=== PATIENT | female | born 1955 | race Caucasian/White ===

== ENCOUNTER → 2017-01-30 | Outpatient (CLI) | payer MEDICARE, OTHER ==
[~2017-01-30] MED LIST: CYANOCOBALAMIN 1,000 MCG/ML 1 ML VIAL IM NR; SODIUM CHLORIDE 0.9% 250 ML in EMPTY BAG 1 BAG IV PRN; SODIUM CHLORIDE 0.9% 500 ML in EMPTY BAG 1 BAG IV PRN
[2017-01-30 10:27] VITALS: TEMP 97.7
[2017-01-30 11:58] VITALS: BP 151/67; PULSE 78; RESP 20
[2017-01-30 12:47] LABS: ALT 52 U/L (9-52); Anion Gap 10 mmol/L; Blood Urea Nitrogen 17 mg/dL (7-17); Calcium 8.9 mg/dL (8.4-10.2); Carbon Dioxide 26 mmol/L (22-30); Chloride 103 mmol/L (98-107); Cholesterol 187 mg/dL (<200); Glucose 124 mg/dL (74-99); HDL Cholesterol 58 mg/dL (40-60); Non-African American GFR(MDRD) >60 (>60 ml/min/1.73 sqM); Sodium 139 mmol/L (137-145); Triglycerides 120 mg/dL (<150)
[2017-01-30 13:30] LABS: Potassium 4.8 mmol/L (3.5-5.1)
[2017-01-30 14:00] LABS: Hemoglobin A1C 7.2 % (4.2-6.1)
== END ==
LOC: PROCWHC3 09:02
DX: Z51.11 Encounter for antineoplastic chemotherapy (principal); K50.00 Crohn's disease of small intestine without complications; E11.22 Type 2 diabetes mellitus with diabetic chronic kidney disease; E78.5 Hyperlipidemia, unspecified; E03.9 Hypothyroidism, unspecified; N18.2 Chronic kidney disease, stage 2 (mild); Z51.81 Encounter for therapeutic drug level monitoring
CPT/HCPCS: 80061; 80048; 83036; 84443; 84460; 96413; 96415; 96372; J3420; J1745

== ENCOUNTER → 2017-03-13 | Outpatient (CLI) | payer MEDICARE, OTHER ==
[2017-03-13 09:16] VITALS: RESP 16; TEMP 98.1
[2017-03-13 11:14] VITALS: BP 189/80; PULSE 78
== END ==
LOC: PROCWHC3 09:03
DX: Z51.11 Encounter for antineoplastic chemotherapy (principal); K50.00 Crohn's disease of small intestine without complications
CPT/HCPCS: 96361; 96413; 96415; 96372; J3420; J1745

== ENCOUNTER → 2017-04-24 | Outpatient (CLI) | payer MEDICARE, OTHER ==
[~2017-04-24] MED LIST changes: -CYANOCOBALAMIN 1,000 MCG/ML 1 ML VIAL IM NR; +CYANOCOBALAMIN 1,000 MCG/ML 1 ML VIAL IM ONE; -SODIUM CHLORIDE 0.9% 250 ML in EMPTY BAG 1 BAG IV PRN
[2017-04-24 09:34] VITALS: RESP 16; TEMP 97.8
[2017-04-24 10:57] VITALS: BP 131/80; PULSE 69
== END | disposition home or self-care (01) ==
LOC: PROCWHC3 09:03
DX: K50.00 Crohn's disease of small intestine without complications (principal); E53.8 Deficiency of other specified B group vitamins
CPT/HCPCS: 96361; 96372; 96413; 96415; J3420; J1745

== ENCOUNTER → 2017-05-23 | Outpatient (CLI) | payer MEDICARE, OTHER ==
[2017-05-23 17:09] LABS: EKG EKG PERFORMED
[2017-05-23 17:33] LABS: Anion Gap 10 mmol/L; Blood Urea Nitrogen 13 mg/dL (7-17); Calcium 9.1 mg/dL (8.4-10.2); Carbon Dioxide 24 mmol/L (22-30); Chloride 104 mmol/L (98-107); Glucose 201 mg/dL (74-99); Non-African American GFR(MDRD) >60 (>60 ml/min/1.73 sqM); Potassium 4.1 mmol/L (3.5-5.1); Sodium 138 mmol/L (137-145)
== END | disposition home or self-care (01) ==
LOC: LABWHC1 16:56
PROVIDERS: ATTEND Anesthesiology
DX: Z01.818 Encounter for other preprocedural examination (principal); Z01.810 Encounter for preprocedural cardiovascular examination
CPT/HCPCS: 36415; 80048; 93005

== ENCOUNTER → 2017-06-11 | Outpatient (CLI) | payer MEDICARE, OTHER ==
[~2017-06-11] MED LIST changes: +INFLIXIMAB DYYB IV ONE; +SODIUM CHLORIDE 0.9% IV ONE
[2017-06-11 10:20] VITALS: TEMP 99.3
[2017-06-11 11:02] VITALS: RESP 16
[2017-06-11 12:22] VITALS: BP 162/77; PULSE 77
== END | disposition home or self-care (01) ==
LOC: PROCWHC3 10:04
DX: K50.00 Crohn's disease of small intestine without complications (principal)
CPT/HCPCS: 96413; 96415; 96372; J3420; Q5102

== ENCOUNTER → 2018-01-09 | Outpatient (CLI) | payer MEDICARE, OTHER ==
[~2018-01-09] MED LIST changes: -CYANOCOBALAMIN 1,000 MCG/ML 1 ML VIAL IM ONE; +CYANOCOBALAMIN 1,000 MCG/ML 1 ML VIAL SQ NR; +INFLIXIMAB DYYB IV NR; -INFLIXIMAB DYYB IV ONE; +SODIUM CHLORIDE 0.9% IV NR; -SODIUM CHLORIDE 0.9% IV ONE
[2018-01-09 10:26] VITALS: RESP 16; TEMP 97.7
[2018-01-09 12:19] VITALS: PULSE 75
[2018-01-09 12:43] VITALS: BP 144/68
== END | disposition home or self-care (01) ==
LOC: PROCWHC3 09:48
PROVIDERS: ATTEND Internal Medicine Rheumatology
DX: M06.09 Rheumatoid arthritis without rheumatoid factor, multiple sites (principal); R53.83 Other fatigue
CPT/HCPCS: 96372; 96413; 96415; J3420; Q5103

== ENCOUNTER → 2018-02-20 | Outpatient (CLI) | payer MEDICARE, OTHER ==
[~2018-02-20] MED LIST changes: +CYANOCOBALAMIN 1,000 MCG/ML 1 ML VIAL IM NR; -CYANOCOBALAMIN 1,000 MCG/ML 1 ML VIAL SQ NR
[2018-02-20 10:06] VITALS: RESP 16
[2018-02-20 10:08] VITALS: TEMP 97.9
[2018-02-20 10:49] LABS: Basophils % (A) 1 %; Eosinophils # (A) 0.2 k/uL (0-0.7); Eosinophils % (A) 3 %; HCT 36.4 % (34.0-46.0); HGB 11.9 gm/dL (11.4-16.0); Lymphocytes % (A) 16 %; MCH 31.4 pg (25.0-35.0); MCHC 32.6 g/dL (31.0-37.0); MCV 96.2 fL (80.0-100.0); Mean Platelet Volume 7.4; Monocytes # (A) 0.5 k/uL (0-1.0); Monocytes % (A) 8 %; Neutrophils # (A) 4.2 k/uL (1.3-7.7); Neutrophils % (A) 70 %; Platelet Count 246 k/uL (150-450); RBC 3.78 m/uL (3.80-5.40); WBC 6.1 k/uL (3.8-10.6)
[2018-02-20 11:08] LABS: ALT 31 U/L (9-52); AST 29 U/L (14-36); Albumin 3.9 g/dL (3.5-5.0); Alkaline Phosphatase 53 U/L (38-126); Anion Gap 12 mmol/L; Blood Urea Nitrogen 16 mg/dL (7-17); Calcium 9.4 mg/dL (8.4-10.2); Carbon Dioxide 26 mmol/L (22-30); Chloride 101 mmol/L (98-107); Cholesterol 184 mg/dL (<200); Glucose 157 mg/dL (74-99); HDL Cholesterol 57 mg/dL (40-60); LDL Cholesterol,Calculated 94 mg/dL (0-99); Potassium 4.5 mmol/L (3.5-5.1); Sodium 139 mmol/L (137-145); Total Bilirubin 0.9 mg/dL (0.2-1.3); Total Protein 7.1 g/dL (6.3-8.2); Triglycerides 164 mg/dL (<150)
[2018-02-20 11:21] VITALS: BP 119/74; PULSE 63
== END | disposition home or self-care (01) ==
LOC: PROCWHC3 09:42
PROVIDERS: ATTEND Urology
DX: M06.09 Rheumatoid arthritis without rheumatoid factor, multiple sites (principal); E11.21 Type 2 diabetes mellitus with diabetic nephropathy; E78.2 Mixed hyperlipidemia; F33.42 Major depressive disorder, recurrent, in full remission
CPT/HCPCS: 80061; 80053; 84443; 85025; 96413; 96415; 96372; 36415; J3420; Q5103

== ENCOUNTER → 2018-04-03 | Outpatient (CLI) | payer MEDICARE, OTHER ==
[~2018-04-03] MED LIST changes: -CYANOCOBALAMIN 1,000 MCG/ML 1 ML VIAL IM NR; +CYANOCOBALAMIN 1,000 MCG/ML 1 ML VIAL IM ONE; -INFLIXIMAB DYYB IV NR; +INFLIXIMAB-DYYB 800 MG in SODIUM CHLORIDE 0.9% 250 ML IV NR; -SODIUM CHLORIDE 0.9% IV NR
[2018-04-03 11:56] VITALS: RESP 16; TEMP 97.7
[2018-04-03 12:27] LABS: Cholesterol 136 mg/dL (<200); HDL Cholesterol 64 mg/dL (40-60); LDL Cholesterol,Calculated 47 mg/dL (0-99); Triglycerides 123 mg/dL (<150)
[2018-04-03 12:37] LABS: ALT 33 U/L (9-52); AST 41 U/L (14-36)
[2018-04-03 13:08] VITALS: BP 140/67; PULSE 54
== END ==
LOC: PROCWHC3 10:12
PROVIDERS: ATTEND Urology
DX: K50.00 Crohn's disease of small intestine without complications (principal); E78.2 Mixed hyperlipidemia
CPT/HCPCS: 80061; 84450; 84460; 96413; 96415; 96372; 36415; J3420; Q5103

== ENCOUNTER → 2018-05-15 | Outpatient (CLI) | payer MEDICARE, OTHER ==
[~2018-05-15] MED LIST changes: -CYANOCOBALAMIN 1,000 MCG/ML 1 ML VIAL IM ONE; +CYANOCOBALAMIN 1,000 MCG/ML 1 ML VIAL SQ ONE
[2018-05-15 11:04] VITALS: RESP 16; TEMP 98.2
[2018-05-15 12:31] VITALS: BP 139/59; PULSE 62
== END | disposition home or self-care (01) ==
LOC: PROCWHC3 09:17
PROVIDERS: ATTEND Internal Medicine Rheumatology
DX: K50.00 Crohn's disease of small intestine without complications (principal)
CPT/HCPCS: 96413; 96415; 96372; J3420; J1745

== ENCOUNTER → 2018-06-26 | Outpatient (CLI) | payer MEDICARE, OTHER ==
[~2018-06-26] MED LIST changes: +CYANOCOBALAMIN 1,000 MCG/ML 1 ML VIAL SQ NR; -CYANOCOBALAMIN 1,000 MCG/ML 1 ML VIAL SQ ONE; -INFLIXIMAB-DYYB 800 MG in SODIUM CHLORIDE 0.9% 250 ML IV NR; +SODIUM CHLORIDE 0.9% 500 ML 500 ML in EMPTY BAG 1 BAG IV PRN; -SODIUM CHLORIDE 0.9% 500 ML in EMPTY BAG 1 BAG IV PRN
[2018-06-26 10:13] VITALS: RESP 16; TEMP 98.1
[2018-06-26 11:43] VITALS: BP 126/59; PULSE 65
== END | disposition home or self-care (01) ==
LOC: PROCWHC3 09:29
PROVIDERS: ATTEND Urology
DX: K50.00 Crohn's disease of small intestine without complications (principal)
CPT/HCPCS: 96413; 96415; 96372; J3420; J1745

== ENCOUNTER → 2019-01-14 | Outpatient (CLI) | payer MEDICARE ==
[~2019-01-14] MED LIST changes: -CYANOCOBALAMIN 1,000 MCG/ML 1 ML VIAL SQ NR; +CYANOCOBALAMIN 1,000 MCG/ML 1 ML VIAL SQ ONE; +INFLIXIMAB IV NR; +SODIUM CHLORIDE 0.9% IV NR
[2019-01-14 10:18] VITALS: TEMP 97.6
[2019-01-14 11:13] VITALS: RESP 16
[2019-01-14 12:05] VITALS: BP 129/74; PULSE 61
== END ==
LOC: PROCWHC3 09:49
PROVIDERS: ATTEND Internal Medicine Rheumatology
DX: K50.00 Crohn's disease of small intestine without complications (principal); R53.82 Chronic fatigue, unspecified
CPT/HCPCS: 96413; 96415; 96372; J3420; J1745

== ENCOUNTER 2019-01-21 06:37 | Day surgery (SDC) | payer MEDICARE ==
[2019-01-16 13:22] VITALS: BMI 38.9
[~2019-01-21 06:37] MED LIST changes: -CYANOCOBALAMIN 1,000 MCG/ML 1 ML VIAL SQ ONE; -INFLIXIMAB IV NR; +LACTATED RINGERS 1,000 ML IV SCH; +LIDOCAINE 1% 20 ML VIAL (10MG/ML) FOR IV START INTRADERMA PRN; -SODIUM CHLORIDE 0.9% 500 ML 500 ML in EMPTY BAG 1 BAG IV PRN; -SODIUM CHLORIDE 0.9% IV NR
[2019-01-21 07:27] VITALS: TEMP 98.6
[2019-01-21 07:28] LABS: Glucose,Whole Blood 169 mg/dL (75-99)
[2019-01-21] MEDS ORDERED: MIDAZOLAM 2 MG/2 ML VIAL ONE (07:47)
[2019-01-21] MEDS ORDERED: PROPOFOL 10 MG/ML 20 ML VIAL IV ONE (07:47)
[2019-01-21] MEDS ORDERED: fentaNYL (PF) 50 MCG/ML 2 ML AMP ONE (07:47)
--- NOTE | 2019-01-21 07:50 | P.GSHP ---
History of Present Illness H&P Date: 01/21/19 Chief Complaint: Diarrhea This a 63-year-old female who presents today for colonoscopy. She's had issues with diarrhea. Past Medical History Past Medical History: Asthma, Cancer, Diabetes Mellitus, GERD/Reflux, Memory Impairment, Rheumatoid Arthritis (RA), Sleep Apnea/CPAP/BIPAP, Thyroid Disorder Additional Past Medical History / Comment(s): PAST HX OF ASTHMA (NO PROBLEMS NOW), CROHNS, DIARRHEA & BLOOD WITH STOOLS., HX OF UTERINE CANCER. past hx of thyroid problems History of Any Multi-Drug Resistant Organisms: None Reported Past Surgical History: Bladder Surgery, Bowel Resection, Hysterectomy, Orthopedic Surgery Additional Past Surgical History / Comment(s): BLADDER SUSPENSION X2, HAND SURGERY, jamel FOOT SURGERY (02/01/16) Past Anesthesia/Blood Transfusion Reactions: Previous Problems w/ Anesthesia Additional Past Anesthesia/Blood Transfusion Reaction / Comment(s): X1 HAD DIFFICULTY WAKING UP. Smoking Status: Never smoker - Past Family History Mother Family Medical History: Cancer Additional Family Medical History / Comment(s): UTERINE CANCER Medications and Allergies Home Medications Medication Instructions Recorded Confirmed Type Glimepiride [Amaryl] 4 tab PO BID 02/25/14 01/21/19 History metFORMIN HCL 1,000 tab PO BID 02/25/14 01/21/19 History Methotrexate Sodium [Methotrexate] 12.5 mg PO FR 01/18/15 01/21/19 History Cyanocobalamin [Vitamin B-12] 1,000 mcg IM Q42D 03/09/16 01/21/19 History inFLIXimab [Remicade] 900 mg IVPB Q42D 04/24/17 01/16/19 History Citalopram Hydrobromide 40 mg PO DAILY 06/26/18 01/21/19 History [Citalopram HBr] Donepezil [Aricept] 10 mg PO HS 06/26/18 01/21/19 History Memantine [Namenda] 20 mg PO DAILY 06/26/18 01/21/19 History buPROPion HCL [Wellbutrin XL] 150 mg PO DAILY 06/26/18 01/21/19 History Allergies Allergy/AdvReac Type Severity Reaction Status Date / Time No Known Allergies Allergy Verified 01/21/19 07:12 Surgical - Exam Vital Signs Temp Pulse Resp BP Pulse Ox 98.6 F 58 L 17 163/73 97 01/21/19 07:19 01/21/19 07:19 01/21/19 07:19 01/21/19 07:19 01/21/19 07:19 - General well developed, well nourished, no distress - Eyes PERRL - ENT normal pinna - Neck no masses - Respiratory normal expansion - Cardiovascular Rhythm: regular - Abdomen Abdomen: soft, non tender Results - Labs Abnormal Lab Results - Last 24 Hours (Table) 01/21/19 Range/Units 07:25 POC Glucose (mg/dL) 169 H (75-99) mg/dL Assessment and Plan Assessment: Diarrhea. We'll perform colonoscopy
--- NOTE | 2019-01-21 08:00 | P.OP ---
Date of Procedure: 01/21/19 Preoperative Diagnosis: Diarrhea Postoperative Diagnosis: Internal and external hemorrhoids Rectal biopsy pathology pending Procedure(s) Performed: Colonoscopy Anesthesia: MAC Surgeon: Colin Baugh Pathology: other (Rectal biopsy) Condition: stable Disposition: PACU Description of Procedure: Patient's placed on the endoscopy table in the lateral position. She received IV sedation. Digital rectal exam was performed which revealed internal and Hemorrhoids. The flexible colonoscope was then placed patient anus and passed throughout the entire colon. The right colon was visualized. The patient appeared to have a previous ileocolonic anastomosis. This was normal. The flexible colonoscope was then brought back and the remainder the ascending colon, transient colon and descending colon appeared normal. Scope was brought through the sigmoid colon was normal. The scope summer back the rectum and a random biopsy was performed with a cold forcep. Scope was withdrawn through the anus and there was some minimal bleeding from the internal hemorrhoids. Her internal and external hemorrhoids were noted again. Scope was withdrawn for patient.
[2019-01-21 08:05] VITALS: RESP 16
[2019-01-21 08:38] VITALS: BP 135/76; PULSE 68
== END 2019-01-21 08:46 | disposition home or self-care (01) ==
LOC: ORWHC2ENDO 06:37
PROVIDERS: ATTEND Surgery
DX: R19.7 Diarrhea, unspecified (principal); K64.8 Other hemorrhoids; K64.4 Residual hemorrhoidal skin tags; E07.9 Disorder of thyroid, unspecified; E11.9 Type 2 diabetes mellitus without complications; J45.909 Unspecified asthma, uncomplicated; K21.9 Gastro-esophageal reflux disease without esophagitis; M06.9 Rheumatoid arthritis, unspecified; Z79.84 Long term (current) use of oral hypoglycemic drugs; Z85.42 Personal history of malignant neoplasm of other parts of uterus; Z79.899 Other long term (current) drug therapy
CPT/HCPCS: 88305; 45380; J2250; J3010; J2704

== ENCOUNTER 2019-02-10 07:52 | Day surgery (SDC) | payer MEDICARE ==
[2019-02-06 08:36] VITALS: BMI 36.0
[~2019-02-10 07:52] MED LIST changes: +DEXAMETHASONE SOD PHOSPHATE 10 MG/ML 1 ML VIAL IV ONE; +HEPARIN SODIUM,PORCINE 5,000 UNIT/ML 1 ML VIAL SQ ONE; +HYDROmorphone 0.5 MG/0.5 ML SYRINGE IVP PRN; -LIDOCAINE 1% 20 ML VIAL (10MG/ML) FOR IV START INTRADERMA PRN; +ONDANSETRON 4 MG/2 ML VIAL IVP ONE; +Pre Op ABX Message 1 EACH MISC MISCELLANE ONE; +SCOPOLAMINE 1.5MG/72HR PATCH TRANSDERM ONE
[2019-02-10] MEDS ORDERED: NA PHOS,M-B/NA PHOS,DI-BA 133 ML ENEMA RECTAL ONE (08:00)
[2019-02-10 08:52] VITALS: RESP 16; TEMP 98.2
[2019-02-10] MEDS ORDERED: LIDOCAINE 1% 20 ML VIAL (10MG/ML) FOR IV START INTRADERMA ONE (09:00)
--- NOTE | 2019-02-10 09:01 | P.GSHP ---
History of Present Illness H&P Date: 02/10/19 Chief Complaint: Internal and external hemorrhoids This a 63-year-old female who presents today for hemorrhoidectomy. Patient's had issues with internal and external hemorrhoids. Patient's clearance of rectal bleeding pain and itching. Past Medical History Past Medical History: Asthma, Cancer, Diabetes Mellitus, GERD/Reflux, Memory Impairment, Rheumatoid Arthritis (RA), Skin Disorder, Sleep Apnea/CPAP/BIPAP, Thyroid Disorder Additional Past Medical History / Comment(s): C-PAP MACHINE, PAST HX OF ASTHMA (NO PROBLEMS NOW), CROHNS, DIARRHEA & BLOOD WITH STOOLS., HX OF UTERINE CANCER. MULTIPLE SCRATCHES/SORES D/T OCD. History of Any Multi-Drug Resistant Organisms: None Reported Past Surgical History: Bladder Surgery, Bowel Resection, Hysterectomy, Ort hopedic Surgery Additional Past Surgical History / Comment(s): BLADDER SUSPENSION X2, HAND SURGERY, LEFT FOOT SURGERY (02/01/16) Past Anesthesia/Blood Transfusion Reactions: No Reported Reaction Additional Past Anesthesia/Blood Transfusion Reaction / Comment(s): X1 HAD DIFFICULTY WAKING UP. Smoking Status: Never smoker - Past Family History Mother Family Medical History: Cancer Additional Family Medical History / Comment(s): UTERINE CANCER Medications and Allergies Home Medications Medication Instructions Recorded Confirmed Type Glimepiride [Amaryl] 4 tab PO BID 02/25/14 02/10/19 History metFORMIN HCL 1,000 tab PO BID 02/25/14 02/10/19 History Methotrexate Sodium [Methotrexate] 12.5 mg PO FR 01/18/15 02/10/19 History Cyanocobalamin [Vitamin B-12] 1,000 mcg IM Q42D 03/09/16 02/10/19 History inFLIXimab [Remicade] 900 mg IVPB Q42D 04/24/17 02/10/19 History Citalopram Hydrobromide 40 mg PO DAILY 06/26/18 02/10/19 History [Citalopram HBr] Donepezil [Aricept] 10 mg PO HS 06/26/18 02/10/19 History Memantine [Namenda] 20 mg PO DAILY 06/26/18 02/10/19 History buPROPion HCL [Wellbutrin XL] 150 mg PO DAILY 06/26/18 02/10/19 History Allergies Allergy/AdvReac Type Severity Reaction Status Date / Time No Known Allergies Allergy Verified 02/06/19 08:32 Surgical - Exam Vital Signs Temp Pulse Resp BP Pulse Ox 98.2 F 54 L 16 146/78 94 L 02/10/19 08:50 02/10/19 08:50 02/10/19 08:50 02/10/19 08:50 02/10/19 08:50 - General well developed, well nourished, no distress - Eyes PERRL - ENT normal pinna - Neck no masses - Respiratory normal expansion - Cardiovascular Rhythm: regular - Abdomen Abdomen: soft, non tender Assessment and Plan Assessment: Internal and external hemorrhoids. We'll perform hemorrhoidectomy.
[2019-02-10 09:12] LABS: Glucose,Whole Blood 165 mg/dL (75-99)
[2019-02-10] MEDS ORDERED: MIDAZOLAM 2 MG/2 ML VIAL ONE (09:18)
[2019-02-10] MEDS ORDERED: fentaNYL (PF) 50 MCG/ML 2 ML AMP ONE (09:18)
[2019-02-10] MEDS ORDERED: PROPOFOL 10 MG/ML 20 ML VIAL IV ONE (09:18)
[2019-02-10] MEDS ORDERED: BUPIVACAINE-EPI 0.5%-1:200,000 10 ML VIAL SQ ONE ×3 (09:38→09:43)
[2019-02-10] MEDS ORDERED: GELATIN SPONGE,ABSORB (LARGE) 1 EACH SPONGE TOPICAL ONE (09:53)
--- NOTE | 2019-02-10 10:23 | P.OP ---
Date of Procedure: 02/10/19 Preoperative Diagnosis: Internal and external hemorrhoids Postoperative Diagnosis: Internal and external hemorrhoids Procedure(s) Performed: Internal and external hemorrhoidectomy Anesthesia: local Surgeon: Colin Baugh Pathology: other (Hemorrhoids) Condition: stable Disposition: PACU Description of Procedure: Patient's placed on the operating table in the prone jackknife position. She received IV and local anesthetic. Her anus was anesthetized using 1% local Xylocaine. Patient had large internal/external hemorrhoids. The bivalved anal retractors placed and anus. The left lateral hemorrhoid column was dissected using the Harmonic scissors. The specimens of pathology. Next the right ante rior hemorrhoidal column was dissected and removed using the Harmonic scissors. Large cautery. Hemostasis. There is no bleeding seen. The anus was packed with Gelfoam. Patient top she will well and sent to recovery in stable condition.
[2019-02-10] MEDS ORDERED: HYDROcodone/APAP 5-325MG 1 EACH TAB PO ONE (10:30)
[2019-02-10 10:47] VITALS: BP 144/81; PULSE 78
== END 2019-02-10 11:19 | disposition home or self-care (01) ==
LOC: OR 07:52
PROVIDERS: ATTEND Surgery
DX: K64.4 Residual hemorrhoidal skin tags (principal); K64.8 Other hemorrhoids; E11.9 Type 2 diabetes mellitus without complications; K21.9 Gastro-esophageal reflux disease without esophagitis; R41.3 Other amnesia; M06.9 Rheumatoid arthritis, unspecified; G47.33 Obstructive sleep apnea (adult) (pediatric); Z99.89 Dependence on other enabling machines and devices; Z85.42 Personal history of malignant neoplasm of other parts of uterus; E07.9 Disorder of thyroid, unspecified; F42.9 Obsessive-compulsive disorder, unspecified; J45.909 Unspecified asthma, uncomplicated; Z90.49 Acquired absence of other specified parts of digestive tract; Z79.84 Long term (current) use of oral hypoglycemic drugs; Z79.899 Other long term (current) drug therapy
CPT/HCPCS: 88304; 46260; J2250; J1644; J1100; J2405; J3010; J2704

== ENCOUNTER → 2019-02-13 | Outpatient (CLI) | payer MEDICARE ==
--- NOTE | 2019-02-16 23:30 | MR ---
EXAMINATION TYPE: MR ankle RT wo con DATE OF EXAM: 02/13/2019 COMPARISON: Outside MRI 04/12/2018 HISTORY: 63-year-old female Pain / Swelling / Chronic pain / Osteoarthritis. Ankle surgery 2 years ag o. TECHNIQUE: Multiplanar, multisequence images of the right ankle were obtained without IV contrast. FINDINGS: Small to moderate tibiotalar and posterior subtalar joint effusions. Subtalar joint is aligned. Edema within the lateral body of the calcaneus underlying the angle of Gissane has improved in the in terval. Small amount of residual edema is present here. Very subtle muscular edema within the posterior compartment. Achilles tendon is intact. Small plantar calcaneal spur. Intact origin of the plantar fascia. There is thickening of the posterior tibial tendon with possible small partial split tear versus post surgical change just below the level of the medial malleolus. Overall appearance is significantly imp roved from prior exam. Pinning along the lateral aspect of the navicular and greater relating to prio r repair. Deltoid spring ligament complex appears intact. Lateral ligamentous complex appears grossly intact. Peroneal tendons appear intact. Syndesmosis is intact. Trace tenosynovial fluid scattered within the anterior extensor tendons. Small 1.1 cm ganglion cyst posterior aspect of the ankle adjacent to the PTFL. Additional 1.0 cm ganglion cyst along the dorsal aspect of the midfoot likely arising from the intert arsal articulation. Preserved signal within the sinus Tarsi. Tarsal tunnel is clear. No acute or healing fracture or additional area of marrow edema. IMPRESSION: 1. Significantly improved appearance to the posterior tibial tendon status post repair. Residual thic kening/tendinosis of the tendon remains. There is either a small partial split tear just below the me dial malleolus versus postsurgical change. No retracted tear. 2. Edema within the anterior lateral body of the calcaneus has also improved. Mild residual marrow si gnal change remains with some irregularity of the bone at the level of the angle of Gissane. Query ch ronic sequela of prior extra-articular lateral hindfoot impingement as a result of patient's prior po sterior tibial tendon tear. 3. Small 1.0 cm dorsal midfoot ganglion cyst.
== END | disposition home or self-care (01) ==
LOC: RADMRIMAIN 12:50
PROVIDERS: ATTEND Podiatrist
DX: M25.571 Pain in right ankle and joints of right foot (principal); G89.29 Other chronic pain; M19.071 Primary osteoarthritis, right ankle and foot; M67.471 Ganglion, right ankle and foot; Z98.1 Arthrodesis status

== ENCOUNTER → 2019-03-07 | Outpatient (CLI) | payer MEDICARE ==
[~2019-03-07] MED LIST changes: +CYANOCOBALAMIN 1,000 MCG/ML 1 ML VIAL SQ NR; -DEXAMETHASONE SOD PHOSPHATE 10 MG/ML 1 ML VIAL IV ONE; -HEPARIN SODIUM,PORCINE 5,000 UNIT/ML 1 ML VIAL SQ ONE; -HYDROmorphone 0.5 MG/0.5 ML SYRINGE IVP PRN; +INFLIXIMAB IV NR; -LACTATED RINGERS 1,000 ML IV SCH; -ONDANSETRON 4 MG/2 ML VIAL IVP ONE; -Pre Op ABX Message 1 EACH MISC MISCELLANE ONE; -SCOPOLAMINE 1.5MG/72HR PATCH TRANSDERM ONE; +SODIUM CHLORIDE 0.9% 500 ML 500 ML in EMPTY BAG 1 BAG IV PRN; +SODIUM CHLORIDE 0.9% IV NR
[2019-03-07 10:12] VITALS: RESP 16; TEMP 98.3
[2019-03-07 11:42] VITALS: BP 125/72; PULSE 62
== END ==
LOC: PROCWHC3 10:00
PROVIDERS: ATTEND Internal Medicine Rheumatology
DX: K50.00 Crohn's disease of small intestine without complications (principal); M06.09 Rheumatoid arthritis without rheumatoid factor, multiple sites
CPT/HCPCS: 96372; 96413; 96415; J3420; J1745

== ENCOUNTER → 2019-04-18 | Outpatient (CLI) | payer MEDICARE ==
[2019-04-18 10:17] VITALS: RESP 16; TEMP 98.5
[2019-04-18 10:43] LABS: Cholesterol 130 mg/dL (<200); HDL Cholesterol 57 mg/dL (40-60); LDL Cholesterol,Calculated 53 mg/dL (0-99); Triglycerides 102 mg/dL (<150)
[2019-04-18 10:44] LABS: ALT 30 U/L (9-52); AST 39 U/L (14-36)
[2019-04-18 11:32] VITALS: BP 116/74; PULSE 56
== END ==
LOC: PROCWHC3 09:21
PROVIDERS: ATTEND Internal Medicine Rheumatology
DX: E78.2 Mixed hyperlipidemia (principal); M06.09 Rheumatoid arthritis without rheumatoid factor, multiple sites
CPT/HCPCS: 80061; 84450; 84460; 96413; 96415; 96372; 36415; J3420; J1745

== ENCOUNTER → 2019-05-30 | Outpatient (CLI) | payer MEDICARE ==
[~2019-05-30] MED LIST changes: -CYANOCOBALAMIN 1,000 MCG/ML 1 ML VIAL SQ NR
[2019-05-30 10:07] VITALS: TEMP 98.5
[2019-05-30 10:54] VITALS: RESP 16
[2019-05-30 11:37] VITALS: BP 119/80; PULSE 73
== END ==
LOC: PROCWHC3 09:01
PROVIDERS: ATTEND Internal Medicine Rheumatology
DX: M06.09 Rheumatoid arthritis without rheumatoid factor, multiple sites (principal)
CPT/HCPCS: 96413; 96415; J1745

== ENCOUNTER 2019-06-01 11:34 | Inpatient (IN) | payer MEDICARE ==
--- NOTE | 2019-06-01 11:56 | ED ---
General Adult HPI - General Chief complaint: Chest Pain Stated complaint: Chest/back pain Time Seen by Provider: 06/01/19 11:54 Source: patient Mode of arrival: wheelchair Limitations: no limitations - History of Present Illness Initial comments: Patient presents to the ED with her for evaluation. Patient states that she has had pleuritic, left-sided chest and back pain for the past 2 weeks. Patient states that her pain has become more severe since yesterday. Patient also states that she has developed chills today, and she is noted to have a fever on arrival to the ED today. Patient also states that she has felt somewhat dizzy and dyspneic today. Patient states that she is scheduled to have a CT of her neck done tomorrow secondary to having an abnormal finding on recent routine dental x-rays. Patient denies having any dental pain or neck pain. She denies trauma or injury, focal numbness/weakness/neuro deficit, sore throat, dys phagia, neck stiffness, cough or cold symptoms, palpitations, syncope, abdominal pain, nausea or vomiting, dysuria or urinary symptoms, rash, leg or calf swelling or tenderness, or any other symptoms or complaints. - Related Data Home Medications Medication Instructions Recorded Confirmed Glimepiride [Amaryl] 4 tab PO DAILY 02/25/14 06/01/19 metFORMIN HCL 1,000 tab PO DAILY 02/25/14 06/01/19 Cyanocobalamin [Vitamin B-12] 1,000 mcg IM Q42D 03/09/16 06/01/19 inFLIXimab [Remicade] 900 mg IVPB Q42D 04/24/17 06/01/19 Donepezil [Aricept] 10 mg PO HS 06/26/18 06/01/19 Allergies Allergy/AdvReac Type Severity Reaction Status Date / Time No Known Allergies Allergy Verified 06/01/19 13:01 Review of Systems ROS Statement: Those systems with pertinent positive or pertinent negative responses have been documented in the HPI. ROS Other: All systems not noted in ROS Statement are negative. Past Medical History Past Medical History: Asthma, Cancer, Diabetes Mellitus, GERD/Reflux, Memory Impairment, Rheumatoid Arthritis (RA), Skin Disorder, Sleep Apnea/CPAP/BIPAP, Thyroid Disorder Additional Past Medical History / Comment(s): C-PAP MACHINE, PAST HX OF ASTHMA (NO PROBLEMS NOW), CROHNS, DIARRHEA & BLOOD WITH STOOLS., HX OF UTERINE CANCER. MULTIPLE SCRATCHES/SORES D/T OCD. History of Any Multi-Drug Resistant Organisms: None Reported Past Surgical History: Bladder Surgery, Bowel Resection, Hysterectomy, Orthopedic Surgery Additional Past Surgical History / Comment(s): BLADDER SUSPENSION X2, HAND SURGERY, LEFT FOOT SURGERY (02/01/16). HEMMARHOID SURGERY. Past Anesthesia/Blood Transfusion Reactions: No Reported Reaction Additional Past Anesthesia/Blood Transfusion Reaction / Comment(s): X1 HAD DIFFICULTY WAKING UP. Past Psychological History: No Psychological Hx Reported Smoking Status: Never smoker Past Alcohol Use History: None Reported Past Drug Use History: None Reported - Past Family History Mother Family Medical History: Cancer Additional Family Medical History / Comment(s): UTERINE CANCER General Exam Limitations: no limitations General appearance: alert, in no apparent distress Head exam: Present: atraumatic, normocephalic Eye exam: Present: normal appearance, EOMI ENT exam: Present: normal oropharynx, mucous membranes moist Neck exam: Present: full ROM. Absent: tenderness, meningismus Respiratory exam: Present: normal lung sounds bilaterally. Absent: respiratory distress, wheezes, rales, rhonchi, chest wall tenderness Cardiovascular Exam: Present: regular rate, normal rhythm, normal heart sounds, other (Normal radial pulses bilaterally) GI/Abdominal exam: Present: soft. Absent: distended, tenderness, guarding Extremities exam: Absent: tenderness, pedal edema, calf tenderness Back exam: Absent: CVA tenderness (R) Neurological exam: Present: alert, oriented X3. Absent: motor sensory deficit Psychiatric exam: Present: normal affect, normal mood Skin exam: Present: warm, dry, intact, normal color Course Vital Signs 06/01/19 06/01/19 06/01/19 11:38 14:44 14:47 Temperature 102.7 F H 100.7 F H Pulse Rate 83 78 Respiratory 18 17 Rate Blood Pressure 124/82 130/62 O2 Sat by Pulse 96 96 Oximetry - Reevaluation(s) Reevaluation #1: 06/01/19 17:48 Patient states that she is feeling somewhat better now. She denies development of any new symptoms while in the ED. Patient remains alert and breathing comfortably. Patient's fever has now improved. Patient and are aware of the patient's test results, and they both agree with hospital admission at this time. 06/01/19 17:56 Case, H&P, test results and ED management thus far were discussed with Dr. Manuelito de luna who accepts hospital floor admission for further evaluation and treatment. He has no further recommendations at this time EKG Findings - EKG Comments: EKG Findings:: Normal sinus rhythm, ventricular rate of 79 bpm, normal OH and Q RS intervals, normal QT interval, normal axis, normal EKG Medical Decision Making - Medical Decision Making Patient has a febrile illness and leukocytosis. I suspect that the source of the patient's fever is likely pneumonia and/or a UTI. There is also a concern for metastatic lung disease, requiring further evaluation. Will admit the patient to the hospital under care of Dr. Shea. - Lab Data Result diagrams: 06/01/19 13:46 06/01/19 13:15 Lab Results 06/01/19 06/01/19 06/01/19 Range/Units 13:15 13:15 13:15 WBC (3.8-10.6) k/uL RBC (3.80-5.40) m/uL Hgb (11.4-16.0) gm/dL Hct (34.0-46.0) % MCV (80.0-100.0) fL MCH (25.0-35.0) pg MCHC (31.0-37.0) g/dL RDW (11.5-15.5) % Plt Count (150-450) k/uL Neutrophils % % Lymphocytes % % Monocytes % % Eosinophils % % Basophils % % Neutrophils # (1.3-7.7) k/uL Lymphocytes # (1.0-4.8) k/uL Monocytes # (0-1.0) k/uL Eosinophils # (0-0.7) k/uL Basophils # (0-0.2) k/uL PT 11.2 (9.0-12.0) sec INR 1.1 (<1.2) APTT 23.7 (22.0-30.0) sec Sodium 136 L (137-145) mmol/L Potassium 4.3 (3.5-5.1) mmol/L Chloride 99 (98-107) mmol/L Carbon Dioxide 26 (22-30) mmol/L Anion Gap 11 mmol/L BUN 15 (7-17) mg/dL Creatinine 0.63 (0.52-1.04) mg/dL Est GFR (CKD-EPI)AfAm >90 (>60 ml/min/1.73 sqM) Est GFR (CKD-EPI)NonAf >90 (>60 ml/min/1.73 sqM) Glucose 173 H (74-99) mg/dL Plasma Lactic Acid Mansoor (0.7-2.0) mmol/L Calcium 9.1 (8.4-10.2) mg/dL Magnesium 1.4 L (1.6-2.3) mg/dL Total Bilirubin 3.0 H (0.2-1.3) mg/dL AST 30 (14-36) U/L ALT 35 (9-52) U/L Alkaline Phosphatase 61 (38-126) U/L Troponin I <0.012 (0.000-0.034) ng/mL NT-Pro-B Natriuret Pep pg/mL Total Protein 8.2 (6.3-8.2) g/dL Albumin 4.1 (3.5-5.0) g/dL Urine Color Urine Appearance (Clear) Urine pH (5.0-8.0) Ur Specific [place] (1.001-1.035) Urine Protein (Negative) Urine Glucose (UA) (Negative) Urine Ketones (Negative) Urine Blood (Negative) Urine Nitrite (Negative) Urine Bilirubin (Negative) Urine Urobilinogen (<2.0) mg/dL Ur Leukocyte Esterase (Negative) Urine RBC (0-5) /hpf Urine WBC (0-5) /hpf Ur Squamous Epith Cells (0-4) /hpf Amorphous Sediment (None) /hpf Urine Bacteria (None) /hpf Urine Mucus (None) /hpf 06/01/19 06/01/19 06/01/19 Range/Units 13:15 13:46 13:46 WBC 16.4 H (3.8-10.6) k/uL RBC 4.12 (3.80-5.40) m/uL Hgb 13.1 (11.4-16.0) gm/dL Hct 38.6 (34.0-46.0) % MCV 93.6 (80.0-100.0) fL MCH 31.7 (25.0-35.0) pg MCHC 33.9 (31.0-37.0) g/dL RDW 14.4 (11.5-15.5) % Plt Count 175 (150-450) k/uL Neutrophils % 82 % Lymphocytes % 6 % Monocytes % 6 % Eosinophils % 1 % Basophils % 3 % Neutrophils # 13.4 H (1.3-7.7) k/uL Lymphocytes # 1.0 (1.0-4.8) k/uL Monocytes # 1.0 (0-1.0) k/uL Eosinophils # 0.2 (0-0.7) k/uL Basophils # 0.4 H (0-0.2) k/uL PT (9.0-12.0) sec INR (<1.2) APTT (22.0-30.0) sec Sodium (137-145) mmol/L Potassium (3.5-5.1) mmol/L Chloride (98-107) mmol/L Carbon Dioxide (22-30) mmol/L Anion Gap mmol/L BUN (7-17) mg/dL Creatinine (0.52-1.04) mg/dL Est GFR (CKD-EPI)AfAm (>60 ml/min/1.73 sqM) Est GFR (CKD-EPI)NonAf (>60 ml/min/1.73 sqM) Glucose (74-99) mg/dL Plasma Lactic Acid Mansoor 1.7 (0.7-2.0) mmol/L Calcium (8.4-10.2) mg/dL Magnesium (1.6-2.3) mg/dL Total Bilirubin (0.2-1.3) mg/dL AST (14-36) U/L ALT (9-52) U/L Alkaline Phosphatase (38-126) U/L Troponin I (0.000-0.034) ng/mL NT-Pro-B Natriuret Pep 190 pg/mL Total Protein (6.3-8.2) g/dL Albumin (3.5-5.0) g/dL Urine Color Urine Appearance (Clear) Urine pH (5.0-8.0) Ur Specific [place] (1.001-1.035) Urine Protein (Negative) Urine Glucose (UA) (Negative) Urine Ketones (Negative) Urine Blood (Negative) Urine Nitrite (Negative) Urine Bilirubin (Negative) Urine Urobilinogen (<2.0) mg/dL Ur Leukocyte Esterase (Negative) Urine RBC (0-5) /hpf Urine WBC (0-5) /hpf Ur Squamous Epith Cells (0-4) /hpf Amorphous Sediment (None) /hpf Urine Bacteria (None) /hpf Urine Mucus (None) /hpf 06/01/19 Range/Units 15:25 WBC (3.8-10.6) k/uL RBC (3.80-5.40) m/uL Hgb (11.4-16.0) gm/dL Hct (34.0-46.0) % MCV (80.0-100.0) fL MCH (25.0-35.0) pg MCHC (31.0-37.0) g/dL RDW (11.5-15.5) % Plt Count (150-450) k/uL Neutrophils % % Lymphocytes % % Monocytes % % Eosinophils % % Basophils % % Neutrophils # (1.3-7.7) k/uL Lymphocytes # (1.0-4.8) k/uL Monocytes # (0-1.0) k/uL Eosinophils # (0-0.7) k/uL Basophils # (0-0.2) k/uL PT (9.0-12.0) sec INR (<1.2) APTT (22.0-30.0) sec Sodium (137-145) mmol/L Potassium (3.5-5.1) mmol/L Chloride (98-107) mmol/L Carbon Dioxide (22-30) mmol/L Anion Gap mmol/L BUN (7-17) mg/dL Creatinine (0.52-1.04) mg/dL Est GFR (CKD-EPI)AfAm (>60 ml/min/1.73 sqM) Est GFR (CKD-EPI)NonAf (>60 ml/min/1.73 sqM) Glucose (74-99) mg/dL Plasma Lactic Acid Mansoor (0.7-2.0) mmol/L Calcium (8.4-10.2) mg/dL Magnesium (1.6-2.3) mg/dL Total Bilirubin (0.2-1.3) mg/dL AST (14-36) U/L ALT (9-52) U/L Alkaline Phosphatase (38-126) U/L Troponin I (0.000-0.034) ng/mL NT-Pro-B Natriuret Pep pg/mL Total Protein (6.3-8.2) g/dL Albumin (3.5-5.0) g/dL Urine Color Yellow Urine Appearance Cloudy H (Clear) Urine pH 7.5 (5.0-8.0) Ur Specific [place] 1.019 (1.001-1.035) Urine Protein 1+ H (Negative) Urine Glucose (UA) Negative (Negative) Urine Ketones Negative (Negative) Urine Blood Negative (Negative) Urine Nitrite Negative (Negative) Urine Bilirubin Negative (Negative) Urine Urobilinogen <2.0 (<2.0) mg/dL Ur Leukocyte Esterase Large H (Negative) Urine RBC 2 (0-5) /hpf Urine WBC 29 H (0-5) /hpf Ur Squamous Epith Cells 23 H (0-4) /hpf Amorphous Sediment Rare H (None) /hpf Urine Bacteria Rare H (None) /hpf Urine Mucus Rare H (None) /hpf Disposition Clinical Impression: Febrile illness, acute, Chest pain, Back pain, Urinary tract infection Narrative: Possible pneumonia and/or metastatic lung disease Disposition: ADMITTED IP TO THIS HOSP Condition: Stable Is patient prescribed a controlled substance at d/c from ED?: No Referrals: Hector Shea Jr, DO [Primary Care Provider] - 1-2 days Time of Disposition: 17:56 Decision Date: 06/01/19 Decision Time: 17:49
[2019-06-01] MEDS ORDERED: SODIUM CHLORIDE 0.9% 1,000 ML IV STA (12:04)
[2019-06-01] MEDS ORDERED: ACETAMINOPHEN TAB 500 MG TAB PO STA (12:09)
[2019-06-01 13:33] LABS: ALT 35 U/L (9-52); AST 30 U/L (14-36); African American GFR (CKD) >90 (>60 ml/min/1.73 sqM); Albumin 4.1 g/dL (3.5-5.0); Alkaline Phosphatase 61 U/L (38-126); Anion Gap 11 mmol/L; Blood Urea Nitrogen 15 mg/dL (7-17); Calcium 9.1 mg/dL (8.4-10.2); Carbon Dioxide 26 mmol/L (22-30); Chloride 99 mmol/L (98-107); Glucose 173 mg/dL (74-99); Magnesium 1.4 mg/dL (1.6-2.3); Potassium 4.3 mmol/L (3.5-5.1); Sodium 136 mmol/L (137-145); Total Protein 8.2 g/dL (6.3-8.2)
[2019-06-01 13:44] LABS: INR 1.1 (<1.2); Partial Thromboplastin Time 23.7 sec (22.0-30.0); Prothrombin Time 11.2 sec (9.0-12.0)
[2019-06-01 14:05] LABS: Basophils # (A) 0.4 k/uL (0-0.2); Basophils % (A) 3 %; Eosinophils # (A) 0.2 k/uL (0-0.7); Eosinophils % (A) 1 %; HCT 38.6 % (34.0-46.0); HGB 13.1 gm/dL (11.4-16.0); Lymphocytes % (A) 6 %; MCH 31.7 pg (25.0-35.0); MCHC 33.9 g/dL (31.0-37.0); MCV 93.6 fL (80.0-100.0); Mean Platelet Volume 7.8; Monocytes % (A) 6 %; Neutrophils # (A) 13.4 k/uL (1.3-7.7); Neutrophils % (A) 82 %; Platelet Count 175 k/uL (150-450); RBC 4.12 m/uL (3.80-5.40); RDW 14.4 % (11.5-15.5); WBC 16.4 k/uL (3.8-10.6)
[2019-06-01 16:00] LABS: Amorphous Sediment,Urine Rare /hpf; Appearance,Urine Cloudy (Clear); Bacteria,Urine Rare /hpf; Bilirubin,Urine Negative (Negative); Blood,Urine Negative (Negative); Color,Urine Yellow; Glucose,Urine (UA) Negative (Negative); Ketones,Urine Negative (Negative); Leukocyte Esterase,Urine Large (Negative); Mucus,Urine Rare /hpf; Nitrite,Urine Negative (Negative); PH, Urine 7.5 (5.0-8.0); Protein,Urine 1+ (Negative); RBC,Urine 2 /hpf (0-5); Specific Gravity,Urine 1.019 (1.001-1.035); Squamous Epithelial Cell,Urine 23 /hpf (0-4); Urobilinogen,Urine <2.0 mg/dL (<2.0)
--- NOTE | 2019-06-01 16:38 | CT ---
EXAMINATION TYPE: CT chest angio for PE DATE OF EXAM: 06/01/2019 COMPARISON: None HISTORY: Chest and neck pain CT DLP: 583.9 mGycm Automated exposure control for dose reduction was used. CONTRAST: CT Chest for pulmonary embolism performed with with IV Contrast, patient injected with 100 mL of Isov ue 300. FINDINGS: There are 3-D post processed images. There are a few mediastinal lymph nodes less than 1 cm. There are no hilar masses. There is normal co ntrast opacification of the pulmonary arteries. There is no pericardial effusion. There is patchy reticular nodular infiltrate in both lungs with subpleural nodular densities in the l ower lobes that measure up to 1.5 cm. There is a stellate 2 cm infiltrate lateral aspect right upper lobe. Upper abdominal soft tissues are unremarkable. There are bilateral multiple axillary lymph node s that measure up to 1.5 cm. IMPRESSION: No evidence of pulmonary embolism. Numerous nodular infiltrates and stellate infiltrates in both lung s. This is consistent with metastatic disease. Infiltrates are significantly increased compared to e old CT scan of 02/22/2019.
--- NOTE | 2019-06-01 16:42 | CT ---
EXAMINATION TYPE: CT soft tissue neck w con DATE OF EXAM: 06/01/2019 4:31 PM COMPARISON: None HISTORY: Chest and neck pain CT DLP: 379.4 mGycm Automated exposure control for dose reduction was used. CONTRAST: CT scan of the neck is performed following with IV Contrast, patient injected with 100 mL of Isovue 3 70. Axial images are obtained, coronal and sagittal reformatted images are reviewed. FINDINGS: There are a few paratracheal lymph nodes that measure up to 1 cm. There is normal branching pattern o f the great vessels on the aortic arch. Thyroid gland appears intact. There is normal contrast opacif ication of the carotid arteries. There are a few bilateral anterior triangle cervical lymph nodes jorge t measure up to 10 mm. There is symmetric hypertrophy of the parotid glands. Submandibular salivary g lands are symmetric. Epiglottis is normal. There is asymmetric increased density at the base of the tongue on the right si de compared to the left. Tonsils are within normal limits. Adenoids within normal limits. Subglottic trachea appears normal. There are some spondylotic changes in the cervical spine. I see no focal bone destruction. IMPRESSION: Mild cervical lymphadenopathy. Nonspecific mediastinal lymph nodes. Possible mass at the base of the tongue on the right side. Correlation with physical exam recommended .
[2019-06-01] MEDS ORDERED: AZITHROMYCIN 500 MG in SODIUM CHLORIDE 0.9% 250 ML IVPB STA (17:51)
[2019-06-01] MEDS: ACETAMINOPHEN TAB 325 MG TAB PO PRN (20:43)
[2019-06-02] MEDS: ACETAMINOPHEN TAB 325 MG TAB PO PRN ×3 (02:53→23:56)
[2019-06-02] MEDS: SODIUM CHLORIDE 0.9% 1,000 ML IV SCH ×3 (03:05→16:23)
[2019-06-02] MEDS: MORPHINE SULFATE 2 MG/ML SYRINGE IVP PRN ×4 (03:56→20:30)
[2019-06-02 07:07] LABS: Basophils # (A) 0.1 k/uL (0-0.2); Basophils % (A) 1 %; Eosinophils # (A) 0.1 k/uL (0-0.7); Eosinophils % (A) 0 %; HCT 34.3 % (34.0-46.0); HGB 11.5 gm/dL (11.4-16.0); Lymphocytes # (A) 1.3 k/uL (1.0-4.8); Lymphocytes % (A) 9 %; MCH 30.9 pg (25.0-35.0); MCHC 33.4 g/dL (31.0-37.0); MCV 92.5 fL (80.0-100.0); Mean Platelet Volume 7.1; Monocytes # (A) 1.3 k/uL (0-1.0); Monocytes % (A) 9 %; Neutrophils # (A) 11.9 k/uL (1.3-7.7); Neutrophils % (A) 79 %; Platelet Count 166 k/uL (150-450); RBC 3.71 m/uL (3.80-5.40); WBC 15.1 k/uL (3.8-10.6)
[2019-06-02 07:24] LABS: ALT 30 U/L (9-52); AST 23 U/L (14-36); African American GFR (CKD) >90 (>60 ml/min/1.73 sqM); Albumin 3.4 g/dL (3.5-5.0); Alkaline Phosphatase 59 U/L (38-126); Anion Gap 10 mmol/L; Blood Urea Nitrogen 10 mg/dL (7-17); Calcium 8.4 mg/dL (8.4-10.2); Carbon Dioxide 25 mmol/L (22-30); Chloride 103 mmol/L (98-107); Glucose 219 mg/dL (74-99); Potassium 3.6 mmol/L (3.5-5.1); Sodium 138 mmol/L (137-145); Total Bilirubin 2.4 mg/dL (0.2-1.3); Total Protein 7.2 g/dL (6.3-8.2)
[2019-06-02] MEDS: AZITHROMYCIN 500 MG TAB PO SCH (11:21)
[2019-06-02 11:32] LABS: Glucose,Whole Blood 196 mg/dL (75-99)
[2019-06-02] MEDS: INSULIN ASPART (NovoLOG) 100 UNIT/ML VIAL SQ SCH ×3 (12:47→20:29)
--- NOTE | 2019-06-02 16:08 | P.CONS ---
History of Present Illness - Reason for Consult Consult date: 06/02/19 Hx: Cancer - concern for metastatic disease Requesting physician: Tha Brown - Chief Complaint Chest Pain - History of Present Illness Ms. Stewart presented to emergency with complaints of left sided pleuretic chest pain, subjective fevers (Diaphoretic and chills), and exertional dyspnea. Fever 103F yesterday, on antibiotics, pulm is following. She has a history of cervical cancer, partial hysterectomy in 1980. Now presenting with new base of tongue mass and adenopathy there is a concern for HPV related Head/neck cancer CTA: No evidence of pulmonary embolism although did identify patchy reticular nodular infiltrates in both lungs with subpleural nodular densities and the lower lobes measuring a maximum of 1.5 cm. Bilateral multiple axillary lymph nodes were also identified measuring up to 1.5 cm PET scan in February. revealed that today's CAT scan are concerning for the potential of metastatic disease as bilateral infiltrates are significantly increased in size. CT Neck: Mild cervical lymphadenopathy with abnormality at the base of the tongue on the right side Review of Systems A 14 point review of systems was assessed and completed and are all negative except for HPI Past Medical History Past Medical History: Asthma, Cancer, Diabetes Mellitus, GERD/Reflux, Memory Impairment, Rheumatoid Arthritis (RA), Skin Disorder, Sleep Apnea/CPAP/BIPAP, Thyroid Disorder Additional Past Medical History / Comment(s): C-PAP MACHINE, PAST HX OF ASTHMA (NO PROBLEMS NOW), CROHNS, DIARRHEA & BLOOD WITH STOOLS., HX OF UTERINE CANCER. MULTIPLE SCRATCHES/SORES D/T OCD. History of Any Multi-Drug Resistant Organisms: None Reported Past Surgical History: Bladder Surgery, Bowel Resection, Hysterectomy, Orthopedic Surgery Additional Past Surgical History / Comment(s): BLADDER SUSPENSION X2, HAND SURGERY, LEFT FOOT SURGERY (02/01/16). HEMMARHOID SURGERY. Past Anesthesia/Blood Transfusion Reactions: No Reported Reaction Additional Past Anesthesia/Blood Transfusion Reaction / Comm: X1 HAD DIFFICULTY WAKING UP. Past Psychological History: No Psychological Hx Reported Smoking Status: Never smoker Past Alcohol Use History: None Reported Past Drug Use History: None Reported - Past Family History Mother Family Medical History: Cancer Additional Family Medical History / Comment(s): UTERINE CANCER Medications and Allergies Home Medications Medication Instructions Recorded Confirmed Type Glimepiride [Amaryl] 4 tab PO DAILY 02/25/14 06/01/19 History metFORMIN HCL 1,000 tab PO DAILY 02/25/14 06/01/19 History Cyanocobalamin [Vitamin B-12] 1,000 mcg IM Q42D 03/09/16 06/01/19 History inFLIXimab [Remicade] 900 mg IVPB Q42D 04/24/17 06/01/19 History Donepezil [Aricept] 10 mg PO HS 06/26/18 06/01/19 History Allergies Allergy/AdvReac Type Severity Reaction Status Date / Time No Known Allergies Allergy Verified 06/01/19 13:01 Physical Exam Vitals: Vital Signs Temp Pulse Pulse Resp BP BP BP 06/02/19 10:01 100 F H 06/02/19 04:28 99.4 F 83 16 113/68 06/02/19 03:51 100.6 F H 06/02/19 02:40 103.0 F H 06/02/19 00:17 100.4 F H 06/01/19 21:28 103.0 F H 83 16 123/67 06/01/19 19:14 100.7 F H 78 17 130/62 06/01/19 14:47 100.7 F H 06/01/19 14:44 78 17 130/62 Pulse Ox 06/02/19 10:01 06/02/19 04:28 91 L 06/02/19 03:51 06/02/19 02:40 06/02/19 00:17 06/01/19 21:28 91 L 06/01/19 19:14 96 06/01/19 14:47 06/01/19 14:44 96 Intake and Output 06/01/19 06/02/19 06/02/19 22:59 06:59 14:59 Intake Total 640 Balance 640 Intake: Intake, IV Titration 640 Amount Sodium Chloride 0.9% 1, 640 000 ml @ 80 mls/hr IV . [id number] [facility] Rx#:[id number] Other: Voiding Method Toilet Toilet # Voids 1 2 General: Alert and Oriented x3, No Acute Distress Head: Normocytic, Atraumatic Neck: Supple Mouth: No Lesions, No Thrush Eyes: Non-sclerotic No Palpable cervical, supraclavicular, axillary adenopathy Heart: Regular Rate, Regular Rhythm Lungs: Clear to Ausculations, No Wheeze, No Rhonchi, Diminishe bilateral lower lobes, No increased respiratory effort noted Abdomen: Soft, Non-Distended, Non-Tended, BSx4 Extremities: No Edema, Equal Strength Neurological: No Focal Defects: No sensory or motor deficits noted Psych: Calm and cooperative Results CBC & Chem 7: 06/02/19 06:48 06/02/19 06:48 Labs: Abnormal Lab Results - Last 24 Hours (Table) 06/01/19 06/01/19 06/01/19 Range/Units 13:15 13:46 15:25 WBC 16.4 H (3.8-10.6) k/uL RBC (3.80-5.40) m/uL Neutrophils # 13.4 H (1.3-7.7) k/uL Monocytes # (0-1.0) k/uL Basophils # 0.4 H (0-0.2) k/uL Sodium 136 L (137-145) mmol/L Glucose 173 H (74-99) mg/dL POC Glucose (mg/dL) (75-99) mg/dL Magnesium 1.4 L (1.6-2.3) mg/dL Total Bilirubin 3.0 H (0.2-1.3) mg/dL Albumin (3.5-5.0) g/dL Urine Appearance Cloudy H (Clear) Urine Protein 1+ H (Negative) Ur Leukocyte Esterase Large H (Negative) Urine WBC 29 H (0-5) /hpf Ur Squamous Epith Cells 23 H (0-4) /hpf Amorphous Sediment Rare H (None) /hpf Urine Bacteria Rare H (None) /hpf Urine Mucus Rare H (None) /hpf 06/02/19 06/02/19 06/02/19 Range/Units 06:48 06:48 11:27 WBC 15.1 H (3.8-10.6) k/uL RBC 3.71 L (3.80-5.40) m/uL Neutrophils # 11.9 H (1.3-7.7) k/uL Monocytes # 1.3 H (0-1.0) k/uL Basophils # (0-0.2) k/uL Sodium (137-145) mmol/L Glucose 219 H (74-99) mg/dL POC Glucose (mg/dL) 196 H (75-99) mg/dL Magnesium (1.6-2.3) mg/dL Total Bilirubin 2.4 H (0.2-1.3) mg/dL Albumin 3.4 L (3.5-5.0) g/dL Urine Appearance (Clear) Urine Protein (Negative) Ur Leukocyte Esterase (Negative) Urine WBC (0-5) /hpf Ur Squamous Epith Cells (0-4) /hpf Amorphous Sediment (None) /hpf Urine Bacteria (None) /hpf Urine Mucus (None) /hpf Microbiology - Last 24 Hours (Table) 06/01/19 15:25 Urine Culture - Preliminary Urine,Voided CT scan - chest: report reviewed Assessment and Plan Plan: Assessment and recommendations: Bilateral lung nodules, nonspecific - no FDG avidity on past PET although concern wor increase - Pulm Following - Rec repeat PET as outpatient New Base of Tongue Mass in patient with history of cervical cancer: - ENT consulted - Recommend tissue biopsy Pleuretic Chest pain, Pneumonia: - Antibiotics - Pulm Following Hx: Cervical Cancer in 1980 - wit partial hysterectomy.
--- NOTE | 2019-06-02 16:38 | P.HPIM ---
History of Present Illness H&P Date: 06/02/19 Chief Complaint: Chest pain This pleasant 63-year-old white female well-known to the practice. Palate she has a one-day history of fever, chest pain on the left side, and pain with deep inspiration. She was short of breath. She also had some nausea and vomiting. She was found to have numerous nodular infiltrates and stellate infiltrates in both lungs. These infiltrates currently significantly increased from a CT dated 02/22/2019. The patient is feeling better now. Discussed the case Dr. Stephens reviewed the films himself, but he feels that these are less likely to be malignancy would reevaluate these in 3 months. An incidental finding that was noted on CT of the neck showing possible mass at the base of the tongue on the right side. Early patient is feeling much better. Emergency room is placed her on Rocephin and azithromycin. She is on IV fluids. Her MAXIMUM TEMPERATURE is been 103.0F as of 0240. She is type II diabetic and takes metformin and glimepiride. Review of Systems All systems: negative Past Medical History Past Medical History: Asthma, Cancer, Diabetes Mellitus, GERD/Reflux, Memory Impairment, Rheumatoid Arthritis (RA), Skin Disorder, Sleep Apnea/CPAP/BIPAP, Thyroid Disorder Additional Past Medical History / Comment(s): C-PAP MACHINE, PAST HX OF ASTHMA (NO PROBLEMS NOW), CROHNS, DIARRHEA & BLOOD WITH STOOLS., HX OF UTERINE CANCER. MULTIPLE SCRATCHES/SORES D/T OCD. History of Any Multi-Drug Resistant Organisms: None Reported Past Surgical History: Bladder Surgery, Bowel Resection, Hysterectomy, Orthopedic Surgery Additional Past Surgical History / Comment(s): BLADDER SUSPENSION X2, HAND SURGERY, LEFT FOOT SURGERY (02/01/16). HEMMARHOID SURGERY. Past Anesthesia/Blood Transfusion Reactions: No Reported Reaction Additional Past Anesthesia/Blood Transfusion Reaction / Comment(s): X1 HAD DIFFICULTY WAKING UP. Past Psychological History: No Psychological Hx Reported Smoking Status: Never smoker Past Alcohol Use History: None Reported Past Drug Use History: None Reported - Past Family History Mother Family Medical History: Cancer Additional Family Medical History / Comment(s): UTERINE CANCER Medications and Allergies Home Medications Medication Instructions Recorded Confirmed Type Glimepiride [Amaryl] 4 tab PO DAILY 02/25/14 06/01/19 History metFORMIN HCL 1,000 tab PO DAILY 02/25/14 06/01/19 History Cyanocobalamin [Vitamin B-12] 1,000 mcg IM Q42D 03/09/16 06/01/19 History inFLIXimab [Remicade] 900 mg IVPB Q42D 04/24/17 06/01/19 History Donepezil [Aricept] 10 mg PO HS 06/26/18 06/01/19 History Allergies Allergy/AdvReac Type Severity Reaction Status Date / Time No Known Allergies Allergy Verified 06/01/19 13:01 Physical Exam Vitals: Vital Signs Temp Pulse Pulse Resp BP BP BP 06/02/19 11:55 98.6 F 74 18 121/59 06/02/19 10:01 100 F H 06/02/19 04:28 99.4 F 83 16 113/68 06/02/19 03:51 100.6 F H 06/02/19 02:40 103.0 F H 06/02/19 00:17 100.4 F H 06/01/19 21:28 103.0 F H 83 16 123/67 06/01/19 19:14 100.7 F H 78 17 130/62 Pulse Ox 06/02/19 11:55 93 L 06/02/19 10:01 06/02/19 04:28 91 L 06/02/19 03:51 06/02/19 02:40 06/02/19 00:17 06/01/19 21:28 91 L 06/01/19 19:14 96 Intake and Output 06/02/19 06/02/19 06/02/19 06:59 14:59 22:59 Intake Total 640 Balance 640 Intake: Intake, IV Titration 640 Amount Sodium Chloride 0.9% 1, 640 000 ml @ 80 mls/hr IV . [id number] [facility] Rx#:[id number] Other: Voiding Method Toilet Toilet Toilet # Voids 2 GENERAL: Well-appearing, well-nourished and in no acute distress. Somewhat obese white female. HEAD: Atraumatic, normocephalic. EYES: Pupils equal round and reactive to light, extraocular movements intact, s clera anicteric, conjunctiva are normal. ENT:nares patent, oropharynx clear without exudates. Moist mucous membranes. NECK: Normal range of motion, supple without lymphadenopathy or JVD, no thyromegaly LUNGS: Breath sounds coarse to auscultation bilaterally and equal. No wheezes rales or rhonchi. She is unable to take a significant deep breath without pain stopping her. HEART: Regular rate and rhythm without murmurs, rubs or gallops.S1S2 Normal ABDOMEN: Soft, nontender, normoactive bowel sounds. No guarding, no rebound. No masses appreciated. EXTREMITIES: Normal range of motion, no pitting or edema. No clubbing or cyanosis. NEUROLOGICAL: Cranial nerves II through XII grossly intact. Normal speech, normal gait. PSYCH: Normal mood, normal affect. SKIN: Warm, Dry, normal turgor, no rashes or lesions noted. Results CBC & Chem 7: 06/02/19 06:48 06/02/19 06:48 Labs: Abnormal Lab Results - Last 24 Hours (Table) 06/02/19 06/02/19 06/02/19 Range/Units 06:48 06:48 11:27 WBC 15.1 H (3.8-10.6) k/uL RBC 3.71 L (3.80-5.40) m/uL Neutrophils # 11.9 H (1.3-7.7) k/uL Monocytes # 1.3 H (0-1.0) k/uL Glucose 219 H (74-99) mg/dL POC Glucose (mg/dL) 196 H (75-99) mg/dL Total Bilirubin 2.4 H (0.2-1.3) mg/dL Albumin 3.4 L (3.5-5.0) g/dL Microbiology - Last 24 Hours (Table) 06/01/19 13:15 Blood Culture - Preliminary Blood No Growth after 24 hours 06/01/19 15:25 Urine Culture - Preliminary Urine,Voided Chest x-ray: report reviewed CT scan - chest: report reviewed Thrombosis Risk Factor Assmnt - DVT/VTE Prophylaxis DVT/VTE Prophylaxis: Pharmacologic Prophylaxis ordered - Choose All That Apply Any of the Below Risk Factors Present?: Yes Each Factor Represents 1 point: Abnormal pulmonary function (COPD), Obesity (BMI >25) Other Risk Factors: Yes Each Risk Factor Represents 2 Points: Age 61-74 years Other congenital or acquired thrombophilia - If yes, enter type in comment: No Thrombosis Risk Factor Assessment Total Risk Factor Score: 4 Thrombosis Risk Factor Assessment Level: Moderate Risk Assessment and Plan (1) Lung mass Current Visit: Yes Status: Acute Code(s): R91.8 - OTHER NONSPECIFIC ABNORMAL FINDING OF LUNG FIELD SNOMED Code(s): 393011823 (2) Pneumonia Current Visit: Yes Status: Acute Code(s): J18.9 - PNEUMONIA, UNSPECIFIED ORGANISM SNOMED Code(s): 546652795 (3) Tongue mass Current Visit: Yes Status: Acute Code(s): R22.0 - LOCALIZED SWELLING, MASS AND LUMP, HEAD SNOMED Code(s): 279787392 (4) Diabetes Current Visit: Yes Status: Acute Code(s): E11.9 - TYPE 2 DIABETES MELLITUS WITHOUT COMPLICATIONS SNOMED Code(s): 83824817 (5) Dementia Current Visit: Yes Status: Acute Code(s): F03.90 - UNSPECIFIED DEMENTIA WITHOUT BEHAVIORAL DISTURBANCE SNOMED Code(s): 03284332 (6) H/O cancer of uterus Current Visit: Yes Status: Acute Code(s): Z85.42 - PERSONAL HISTORY OF MALIGNANT NEOPLASM OF OTH PRT UTERUS SNOMED Code(s): 831831701 (7) Back pain Current Visit: Yes Status: Acute Code(s): M54.9 - DORSALGIA, UNSPECIFIED SNOMED Code(s): 941953145 (8) Chest pain Current Visit: Yes Status: Acute Code(s): R07.9 - CHEST PAIN, UNSPECIFIED SNOMED Code(s): 13396825 (9) Febrile illness, acute Current Visit: Yes Status: Acute Code(s): R50.9 - FEVER, UNSPECIFIED SNOMED Code(s): 998517822 (10) Urinary tract infection Current Visit: Yes Status: Acute Code(s): N39.0 - URINARY TRACT INFECTION, SITE NOT SPECIFIED SNOMED Code(s): 94425205 Plan: She'll continue on her current medications Rocephin and azithromycin. We will add subcutaneous heparin. Pulmonology consultations are in order. Will request infectious disease consult. Influenza titers were artery done and were negative. Urinary culture and blood cultures are pending. We'll request a sputum culture if possible. I repeat labs in a.m. Reevaluated next 24 hours. Continue NovoLog scale and Accu-Cheks before meals and at bedtime. We'll continue to hold her metformin for total 48 hours after her IV contrast.
--- NOTE | 2019-06-02 16:52 | P.CNPUL ---
History of Present Illness Consult date: 06/02/19 Requesting physician: Singh Gordon Reason for consult: chest pain, pneumonia Chief complaint: pleuritic chest pain, shortness of breath, fever History of present illness: this is 63-year-old white female patient of Dr. Shea with past medical history of mild intermittent bronchial asthma, which has been stable for quite some time, diabetes mellitus, rheumatoid arthritis, sleep apnea, hypothyroidism, Crohn's disease, history of uterine cancer in 1981 status post surgical removal and patient did not require chemo or radiation, who came into the emergency department on 06/01/2019 for evaluation of 2 day history of fever, chills, with a temp as high as 10 3F, pleuritic chest pain, and shortness of breath. Patient states she hurts throughout her chest when she takes a deep breath, and was having dizziness. She denied any sore throat, denied any cough, congestion, denied any nausea vomiting, denied any dysuria,no neck stiffness. no leg swelling.lab work revealed positive urinalysis, elevated white blood cell count,CT angios chest was completed showing no evidence of pulmonary embolism, however it is shown numerous nodular infiltrates in both lungs with questionable metastatic process. patient had a recent PET scan in February 2019 which showed no suspicious hypermetabolic uptake, and subcentimeter pulmonary nodule. patient was started on Zithromax and Rocephin, for possibility of acute urinary tract infection and pneumonia. Review of Systems All systems: negative Constitutional: Reports fever, Denies chills Eyes: denies blurred vision, denies pain Ears, nose, mouth and throat: Denies headache, Denies sore throat Cardiovascular: Denies chest pain, Denies shortness of breath Respiratory: Reports dyspnea, Denies cough Gastrointestinal: Denies abdominal pain, Denies diarrhea, Denies nausea, Denies vomiting Genitourinary: Denies dysuria, Denies hematuria Musculoskeletal: Denies myalgias Integumentary: Denies pruritus, Denies rash Neurological: Denies numbness, Denies weakness Psychiatric: Denies anxiety, Denies depression Endocrine: Denies fatigue, Denies weight change Past Medical History Past Medical History: Asthma, Cancer, Diabetes Mellitus, GERD/Reflux, Memory Impairment, Rheumatoid Arthritis (RA), Skin Disorder, Sleep Apnea/CPAP/BIPAP, Thyroid Disorder Additional Past Medical History / Comment(s): C-PAP MACHINE, PAST HX OF ASTHMA (NO PROBLEMS NOW), CROHNS, DIARRHEA & BLOOD WITH STOOLS., HX OF UTERINE CANCER. MULTIPLE SCRATCHES/SORES D/T OCD. History of Any Multi-Drug Resistant Organisms: None Reported Past Surgical History: Bladder Surgery, Bowel Resection, Hysterectomy, Orthopedic Surgery Additional Past Surgical History / Comment(s): BLADDER SUSPENSION X2, HAND [place]ON TRACIE, LEFT FOOT SURGERY (02/01/16). HEMMARHOID SURGERY. Past Anesthesia/Blood Transfusion Reactions: No Reported Reaction Additional Past Anesthesia/Blood Transfusion Reaction / Comment(s): X1 HAD DIFFICULTY WAKING UP. Past Psychological History: No Psychological Hx Reported Smoking Status: Never smoker Past Alcohol Use History: None Reported Past Drug Use History: None Reported - Past Family History Mother Family Medical History: Cancer Additional Family Medical History / Comment(s): UTERINE CANCER Medications and Allergies Home Medications Medication Instructions Recorded Confirmed Type Glimepiride [Amaryl] 4 tab PO DAILY 02/25/14 06/01/19 History metFORMIN HCL 1,000 tab PO DAILY 02/25/14 06/01/19 History Cyanocobalamin [Vitamin B-12] 1,000 mcg IM Q42D 03/09/16 06/01/19 History inFLIXimab [Remicade] 900 mg IVPB Q42D 04/24/17 06/01/19 History Donepezil [Aricept] 10 mg PO HS 06/26/18 06/01/19 History Allergies Allergy/AdvReac Type Severity Reaction Status Date / Time No Known Allergies Allergy Verified 06/01/19 13:01 Physical Exam Vitals: Vital Signs Temp Pulse Pulse Resp BP BP BP 06/02/19 11:55 98.6 F 74 18 121/59 06/02/19 10:01 100 F H 06/02/19 04:28 99.4 F 83 16 113/68 06/02/19 03:51 100.6 F H 06/02/19 02:40 103.0 F H 06/02/19 00:17 100.4 F H 06/01/19 21:28 103.0 F H 83 16 123/67 06/01/19 19:14 100.7 F H 78 17 130/62 06/01/19 14:47 100.7 F H 06/01/19 14:44 78 17 130/62 Pulse Ox 06/02/19 11:55 93 L 06/02/19 10:01 06/02/19 04:28 91 L 06/02/19 03:51 06/02/19 02:40 06/02/19 00:17 06/01/19 21:28 91 L 06/01/19 19:14 96 06/01/19 14:47 06/01/19 14:44 96 Intake and Output 06/01/19 06/02/19 06/02/19 22:59 06:59 14:59 Intake Total 640 Balance 640 Intake: Intake, IV Titration 640 Amount Sodium Chloride 0.9% 1, 640 000 ml @ 80 mls/hr IV . [id number] [facility] Rx#:[id number] Other: Voiding Method Toilet Toilet # Voids 1 2 GENERAL EXAM: Alert, pleasant, 63-year-old obese white female, on room air, comfortable in no apparent distress. HEAD: Normocephalic/atraumatic. EYES: Normal reaction of pupils, equal size. Conjunctiva pink, sclera white. NOSE: Clear with pink turbinates. THROAT: No erythema or exudates. NECK: No masses, no JVD, no thyroid enlargement, no adenopathy. CHEST: No chest wall deformity. Symmetrical expansion. LUNGS: diminishedl air entry with no crackles, wheeze, rhonchi or dullness. CVS: Regular rate and rhythm, normal S1 and S2, no gallops, no murmurs, no rubs ABDOMEN: Soft, nontender. No hepatosplenomegaly, normal bowel sounds, no gua rding or rigidity. EXTREMITIES: No clubbing, no edema, no cyanosis, 2+ pulses and upper and lower extremities. MUSCULOSKELETAL: Muscle strength and tone normal. SPINE: No scoliosis or deformity SKIN: No rashes CENTRAL NERVOUS SYSTEM: Alert and oriented -3. No focal deficits, tone is normal in all 4 extremities. PSYCHIATRIC: Alert and oriented -3. Appropriate affect. Intact judgment and insight. Results - Laboratory Findings CBC and BMP: 06/02/19 06:48 06/02/19 06:48 PT/INR, D-dimer PT 11.2 sec (9.0-12.0) 06/01/19 13:15 INR 1.1 (<1.2) 06/01/19 13:15 Abnormal lab findings: Abnormal Labs 06/01/19 06/01/19 06/01/19 13:15 13:46 15:25 WBC 16.4 H RBC Neutrophils # 13.4 H Monocytes # Basophils # 0.4 H Sodium 136 L Glucose 173 H POC Glucose (mg/dL) Magnesium 1.4 L Total Bilirubin 3.0 H Albumin Urine Appearance Cloudy H Urine Protein 1+ H Ur Leukocyte Esterase Large H Urine WBC 29 H Ur Squamous Epith Cells 23 H Amorphous Sediment Rare H Urine Bacteria Rare H Urine Mucus Rare H 06/02/19 06/02/19 06/02/19 06:48 06:48 11:27 WBC 15.1 H RBC 3.71 L Neutrophils # 11.9 H Monocytes # 1.3 H Basophils # Sodium Glucose 219 H POC Glucose (mg/dL) 196 H Magnesium Total Bilirubin 2.4 H Albumin 3.4 L Urine Appearance Urine Protein Ur Leukocyte Esterase Urine WBC Ur Squamous Epith Cells Amorphous Sediment Urine Bacteria Urine Mucus - Diagnostic Findings CT scan - chest: report reviewed, image reviewed Additional studies: CT of soft tissue neck, EKG reviewed Assessment and Plan Plan: assessment: #1. Dyspnea, febrile illness of unclear etiology, CTA chest was negative for any evidence of pulmonary embolism, but showed numerous nodular infiltrates, with a possibility of metastatic disease. Recent PET scan in February 2019 showed no suspicious uptake #2. Chest pain with inspiration, possibly muscular skeletal in nature #3. acute urinary tract infection #4. Possible mass at the base of the tongue on the right side #5. Previous history of uterine cancer diagnosed in 1980 status post surgical resection, patient did not require chemo or radiation following surgery #6. History of diabetes mellitus #7. history of mild intermittent bronchial asthma, stable #8. Rheumatoid arthritis #9. Sleep apnea on CPAP #10. Crohn's disease #11. Lifetime nonsmoker Plan: The findings of the CT chest with the nodular infiltrates not thought to be related to the fever and chest pain. Possibility of underlying pneumonia is not likely, but will continue with current antibiotic coverage, and influenza screen was negative, blood culture is pending, urine culture is negative thus far. We will consult ENT for possible mass at the base of the tongue on the right side. Recommend outpatient follow-up with another CTA chest in 3 months and if the nodular densities increase in size or change we'll consider biopsy. For now continue current medical treatment I performed a history & physical examination of the patient and discussed their management with my nurse practitioner, Pebbles Serrano. I reviewed the nurse practitioner's note and agree with the documented findings and plan of care. Lung sounds are positive diminished breath sounds. The findings and the impression was discussed with the patient. I attest to the documentation by the nurse practitioner. Time with Patient: Greater than 30
[2019-06-02 17:12] LABS: Glucose,Whole Blood 166 mg/dL (75-99)
[2019-06-02] MEDS: HEPARIN SODIUM,PORCINE 5,000 UNIT/ML 1 ML VIAL SQ SCH ×2 (17:33→23:56)
[2019-06-02] MEDS ORDERED: methylPREDNISolone SOD SUCCI 40 MG/ML 1 ML VIAL IV ONE (18:45)
[2019-06-02 20:09] LABS: Glucose,Whole Blood 193 mg/dL (75-99)
[2019-06-02] MEDS: CLOBETASOL PROP 0.05% CR 15GM TOPICAL SCH (20:29)
[2019-06-02] MEDS: DONEPEZIL 10 MG TAB PO SCH (20:30)
--- NOTE | 2019-06-02 22:51 | P.CONS ---
History of Present Illness - Reason for Consult Consult date: 06/02/19 - Chief Complaint chest pain - History of Present Illness 63-year-old female with a history of remote cervical cancer and underwent partial hysterectomy 1980 presents to Hospital feeling ill. She developed fever chills increasing shortness of breath and a fever of 103. Because of this she was brought in the hospital there was concerns to multi lobar pneumonia. Also evidence of some possible lymphadenopathy. With concerns pneumonia and a consult was requested. The patient has had imaging studies that reveal evidence of the computed tomography scan of the chest without evidence of pulmonary embolism evidence of the patchy reticular nodular infiltrates bilaterally as well as some increased expiratory lymph nodes. Computed tomography scan of the neck was performed because of the chest and neck pain evidence of minimal cervical lymphadenopathy however there was the asymmetries the base of the tongue with concerns to mass. Oncology has been consulted. 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 She routinely lives in [place] and comes to [place] just for part of the summer to escape the heat of [place]. Review of Systems HEENT:Denies headache or acute visual change. Denies sinus or mouth discomforts. Denies neck stiffness or pain. Denies significant oral cavity pain. Denies difficulty on swallowing. Lungs:patient is having some discomforts of her chest With deep breath and coughing it goes across the anterior and posterior aspect of the chest Cardiovascular: is noted was having chest pain Across the chest pleuritic in nature, she has dyspnea with exertion but no syncope or orthopnea. Gastrointestinal:Denies nausea, vomiting, diarrhea, constipation, hematemesis, melena, hematochezia. No no significant change of bowel habit noticed. Musculoskeletal: denies significant myalgias or arthralgias. No new joint swelling. Denies new back pain. Skin: Denies new rash or lesions. No new ulcers or wounds are related.. Neuro: Denies headache or visual change. Denies any new onset weakness or difficulty with ambulation. Denies falls or seizures. Psychiatric:Denies anxiety or depression. Endocrine: Denies significant fatigue, denies significant weight loss or weight gain. Past Medical History Past Medical History: Asthma, Cancer, Diabetes Mellitus, GERD/Reflux, Memory Impairment, Rheumatoid Arthritis (RA), Skin Disorder, Sleep Apnea/CPAP/BIPAP, Thyroid Disorder Additional Past Medical History / Comment(s): C-PAP MACHINE, PAST HX OF ASTHMA (NO PROBLEMS NOW), CROHNS, DIARRHEA & BLOOD WITH STOOLS., HX OF UTERINE CANCER. MULTIPLE SCRATCHES/SORES D/T OCD. History of Any Multi-Drug Resistant Organisms: None Reported Past Surgical History: Bladder Surgery, Bowel Resection, Hysterectomy, Orthopedic Surgery Additional Past Surgical History / Comment(s): BLADDER SUSPENSION X2, HAND SURGERY, LEFT FOOT SURGERY (02/01/16). HEMMARHOID SURGERY. Past Anesthesia/Blood Transfusion Reactions: No Reported Reaction Additional Past Anesthesia/Blood Transfusion Reaction / Comm: X1 HAD DIFFICULTY WAKING UP. Past Psychological History: No Psychological Hx Reported Additional Psychological History / Comment(s): lives with her . They live between [facility] in our community. She is an international travel or in was in [place] last year. No international travel so far this year. No animals in the home Smoking Status: Never smoker Past Alcohol Use History: None Reported Past Drug Use History: None Reported - Past Family History Mother Family Medical History: Cancer Additional Family Medical History / Comment(s): UTERINE CANCER Medications and Allergies Home Medications and Allergies Comment(s): Current Medications Acetaminophen (Tylenol Tab) 650 mg PO Q4HR PRN PRN Reason: Fever and/ or Pain Last Admin: 06/02/19 10:34 Dose: 650 mg Documented by: Azithromycin (Zithromax) 500 mg PO DAILY [facility] Last Admin: 06/02/19 11:21 Dose: 500 mg Documented by: Clobetasol Propionate (Temovate) 1 applic TOPICAL BID [facility] Last Admin: 06/02/19 20:29 Dose: 1 applic Documented by: Donepezil HCl (Aricept) 10 mg PO HS [facility] Last Admin: 06/02/19 20:30 Dose: 10 mg Documented by: Heparin Sodium (Porcine) (Heparin) 5,000 unit SQ Q8HR [facility] Last Admin: 06/02/19 17:33 Dose: 5,000 unit Documented by: Sodium Chloride (Saline 0.9%) 1,000 mls @ 80 mls/hr IV .[id number] [facility] Last Admin: 06/02/19 16:23 Dose: 80 mls/hr Documented by: Ceftriaxone Sodium 1 gm/ (Sodium Chloride) 50 mls @ 100 mls/hr IVPB Q24HR [facility] Last Admin: 06/02/19 11:21 Dose: 100 mls/hr Documented by: Insulin Aspart (Novolog) 0 unit SQ ACHS [facility]; Protocol Last Admin: 06/02/19 20:29 Dose: 2 unit Documented by: Morphine Sulfate (Morphine Sulfate (Inj)) 2 mg IVP Q4H PRN PRN Reason: chest pain Last Admin: 06/02/19 20:30 Dose: 2 mg Documented by: Home Medications Medication Instructions Recorded Confirmed Type Glimepiride [Amaryl] 4 tab PO DAILY 02/25/14 06/01/19 History metFORMIN HCL 1,000 tab PO DAILY 02/25/14 06/01/19 History Cyanocobalamin [Vitamin B-12] 1,000 mcg IM Q42D 03/09/16 06/01/19 History inFLIXimab [Remicade] 900 mg IVPB Q42D 04/24/17 06/01/19 History Donepezil [Aricept] 10 mg PO HS 06/26/18 06/01/19 History Allergies Allergy/AdvReac Type Severity Reaction Status Date / Time No Known Allergies Allergy Verified 06/01/19 13:01 Physical Exam Vitals: Vital Signs Temp Pulse Resp BP Pulse Ox 06/02/19 21:00 99.0 F 82 16 135/75 91 L 06/02/19 11:55 98.6 F 74 18 121/59 93 L 06/02/19 10:01 100 F H 06/02/19 04:28 99.4 F 83 16 113/68 91 L 06/02/19 03:51 100.6 F H 06/02/19 02:40 103.0 F H 06/02/19 00:17 100.4 F H Intake and Output 06/02/19 06/02/19 06/02/19 06:59 14:59 22:59 Intake Total 640 840 Balance 640 840 Intake: Intake, IV Titration 640 Amount Sodium Chloride 0.9% 1, 640 000 ml @ 80 mls/hr IV . [id number] [facility] Rx#:[id number] Oral 840 Other: Voiding Method Toilet Toilet Toilet # Voids 2 2 # Bowel Movements 1 63-year-old womanWho appears to be comfortable but does complain of discomfort in her chest with coughing and certain motions. Such as arising from a seated position. HEENT: Anicteric conjunctiva are pink and moist nasal mucosa grossly intact without significant lesions, there is no thrush. Neck: The neck is supple without significant lymphadenopathy or thyromegaly. Lungs: Symmetrical bilateral air entry is noted. There are expiratory scattered wheezes few crackles at the bases Heart: Regular rate and rhythm with an audible S1-S2, no S3 no S4. There is no significant murmur click or rub, PMI was nondisplaced. Abdomen: obese,Positive bowel sounds soft and nontender without palpable masses or organomegaly. There was no guarding or rebound. Extremities: The upper extremities have excellent pulses they are symmetric, no significant petechiae or telangiectasia. No splinter hemorrhages were noted. The lower extremities are free from significant edema. The peripheral pulses were 2+ and symmetric. Neuro: Awake alert oriented to person place and time. There are no acute new gross focal sensory motor deficits. Results CBC & Chem 7: 06/02/19 06:48 06/02/19 06:48 Labs: Abnormal Lab Results - Last 24 Hours (Table) 06/02/19 06/02/19 06/02/19 Range/Units 06:48 06:48 11:27 WBC 15.1 H (3.8-10.6) k/uL RBC 3.71 L (3.80-5.40) m/uL Neutrophils # 11.9 H (1.3-7.7) k/uL Monocytes # 1.3 H (0-1.0) k/uL Glucose 219 H (74-99) mg/dL POC Glucose (mg/dL) 196 H (75-99) mg/dL Total Bilirubin 2.4 H (0.2-1.3) mg/dL Albumin 3.4 L (3.5-5.0) g/dL 06/02/19 06/02/19 Range/Units 17:10 20:06 WBC (3.8-10.6) k/uL RBC (3.80-5.40) m/uL Neutrophils # (1.3-7.7) k/uL Monocytes # (0-1.0) k/uL Glucose (74-99) mg/dL POC Glucose (mg/dL) 166 H 193 H (75-99) mg/dL Total Bilirubin (0.2-1.3) mg/dL Albumin (3.5-5.0) g/dL Microbiology - Last 24 Hours (Table) 06/01/19 15:25 Urine Culture - Preliminary Urine,Voided Gram Neg Bacilli 06/01/19 13:15 Blood Culture - Preliminary Blood No Growth after 24 hours Laboratory Results WBC 15.1 k/uL (3.8-10.6) H 06/02/19 06:48 RBC 3.71 m/uL (3.80-5.40) L 06/02/19 06:48 Hgb 11.5 gm/dL (11.4-16.0) 06/02/19 06:48 Hct 34.3 % (34.0-46.0) 06/02/19 06:48 MCV 92.5 fL (80.0-100.0) 06/02/19 06:48 MCH 30.9 pg (25.0-35.0) 06/02/19 06:48 MCHC 33.4 g/dL (31.0-37.0) 06/02/19 06:48 RDW 14.0 % (11.5-15.5) 06/02/19 06:48 Plt Count 166 k/uL (150-450) 06/02/19 06:48 Neutrophils % 79 % 06/02/19 06:48 Lymphocytes % 9 % 06/02/19 06:48 Monocytes % 9 % 06/02/19 06:48 Eosinophils % 0 % 06/02/19 06:48 Basophils % 1 % 06/02/19 06:48 Neutrophils # 11.9 k/uL (1.3-7.7) H 06/02/19 06:48 Lymphocytes # 1.3 k/uL (1.0-4.8) 06/02/19 06:48 Monocytes # 1.3 k/uL (0-1.0) H 06/02/19 06:48 Eosinophils # 0.1 k/uL (0-0.7) 06/02/19 06:48 Basophils # 0.1 k/uL (0-0.2) 06/02/19 06:48 PT 11.2 sec (9.0-12.0) 06/01/19 13:15 INR 1.1 (<1.2) 06/01/19 13:15 APTT 23.7 sec (22.0-30.0) 06/01/19 13:15 Sodium 138 mmol/L (137-145) 06/02/19 06:48 Potassium 3.6 mmol/L (3.5-5.1) 06/02/19 06:48 Chloride 103 mmol/L (98-107) 06/02/19 06:48 Carbon Dioxide 25 mmol/L (22-30) 06/02/19 06:48 Anion Gap 10 mmol/L 06/02/19 06:48 BUN 10 mg/dL (7-17) 06/02/19 06:48 Creatinine 0.63 mg/dL (0.52-1.04) 06/02/19 06:48 Est GFR (CKD-EPI)AfAm >90 (>60 ml/min/1.73 sqM) 06/02/19 06:48 Est GFR (CKD-EPI)NonAf >90 (>60 ml/min/1.73 sqM) 06/02/19 06:48 Glucose 219 mg/dL (74-99) H 06/02/19 06:48 POC Glucose (mg/dL) 193 mg/dL (75-99) H 06/02/19 20:06 POC Glu Thermodynamics Engineer ID Nanette Keyes 06/02/19 20:06 Plasma Lactic Acid [place] 1.7 mmol/L (0.7-2.0) 06/01/19 13:15 Calcium 8.4 mg/dL (8.4-10.2) 06/02/19 06:48 Magnesium 1.4 mg/dL (1.6-2.3) L 06/01/19 13:15 Total Bilirubin 2.4 mg/dL (0.2-1.3) H 06/02/19 06:48 AST 23 U/L (14-36) 06/02/19 06:48 ALT 30 U/L (9-52) 06/02/19 06:48 Alkaline Phosphatase 59 U/L (38-126) 06/02/19 06:48 Troponin I <0.012 ng/mL (0.000-0.034) 06/01/19 13:15 NT-Pro-B Natriuret Pep 190 pg/mL 06/01/19 13:46 Total Protein 7.2 g/dL (6.3-8.2) 06/02/19 06:48 Albumin 3.4 g/dL (3.5-5.0) L 06/02/19 06:48 Urine Color Yellow 06/01/19 15:25 Urine Appearance Cloudy (Clear) H 06/01/19 15:25 Urine pH 7.5 (5.0-8.0) 06/01/19 15:25 Ur Specific [place] 1.019 (1.001-1.035) 06/01/19 15:25 Urine Protein 1+ (Negative) H 06/01/19 15:25 Urine Glucose (UA) Negative (Negative) 06/01/19 15:25 Urine Ketones Negative (Negative) 06/01/19 15:25 Urine Blood Negative (Negative) 06/01/19 15:25 Urine Nitrite Negative (Negative) 06/01/19 15:25 Urine Bilirubin Negative (Negative) 06/01/19 15:25 Urine Urobilinogen <2.0 mg/dL (<2.0) 06/01/19 15:25 Ur Leukocyte Esterase Large (Negative) H 06/01/19 15:25 Urine RBC 2 /hpf (0-5) 06/01/19 15:25 Urine WBC 29 /hpf (0-5) H 06/01/19 15:25 Ur Squamous Epith Cells 23 /hpf (0-4) H 06/01/19 15:25 Amorphous Sediment Rare /hpf (None) H 06/01/19 15:25 Urine Bacteria Rare /hpf (None) H 06/01/19 15:25 Urine Mucus Rare /hpf (None) H 06/01/19 15:25 Influenza Type A RNA Not Detected (Not Detectd) 06/02/19 12:45 Influenza Type B (PCR) Not Detected (Not Detectd) 06/02/19 12:45 Microbiology 06/01/19 15:25 Urine,Voided Urine Culture - Preliminary Gram Neg Bacilli 06/01/19 13:15 Blood Blood Culture - Preliminary No Growth after 24 hours Abdominal x-ray: report reviewed (infiltrates and lymphadenopathy note, computed tomography scan neck shows evidence of a mass of the base of the tongue) CT scan - chest: report reviewed Assessment and Plan (1) Chest pain Current Visit: Yes Status: Acute Code(s): R07.9 - CHEST PAIN, UNSPECIFIED SNOMED Code(s): 28819505 (2) Febrile illness, acute Narrative/Plan: 63-year-old woman who has a remote history of cervical cancer status post partial hysterectomy in 1980 presents to hospital with increasing shortness of breath and discomfort in her chest. She is evidence of the abnormalities noted on her chest x-ray and computed tomography scan. The computed tomography scan is a bit more ominous with the numerous infiltrates and some lymphadenopathy. There is also notation of the abnormality to the base of the tongue for which further evaluation is been requested from oncology. The patient had a fever admission and evidence of pneumonic infiltration in counseling antibiotic therapy was initiated with Rocephin and azithromycin. This will continue while cultures are process. Urine Legionella and Mycoplasma titers are requested. Atypical pneumonitis is of concern. Urine culture is abnormal and likely has gram-negative bacilli being seen for which the Rocephin should be effective. Blood cultures are process. She is feeling slightly better today with current pain medications. Current Visit: Yes Status: Acute Code(s): R50.9 - FEVER, UNSPECIFIED SNOMED Code(s): 701392576 (3) Tongue mass Current Visit: Yes Status: Acute Code(s): R22.0 - LOCALIZED SWELLING, MASS AND LUMP, HEAD SNOMED Code(s): 863899399
[2019-06-02 23:55] LABS: Glucose,Whole Blood 209 mg/dL (75-99)
[2019-06-03] MEDS: ONDANSETRON 4 MG/2 ML VIAL IVP PRN (00:30)
[2019-06-03] MEDS: SODIUM CHLORIDE 0.9% 1,000 ML IV SCH ×4 (02:27→16:31)
[2019-06-03 07:01] LABS: Basophils % (A) 0 %; Eosinophils % (A) 0 %; HCT 38.7 % (34.0-46.0); HGB 12.8 gm/dL (11.4-16.0); Lymphocytes # (A) 0.9 k/uL (1.0-4.8); Lymphocytes % (A) 9 %; MCHC 33.1 g/dL (31.0-37.0); MCV 93.7 fL (80.0-100.0); Mean Platelet Volume 7.4; Monocytes # (A) 0.2 k/uL (0-1.0); Monocytes % (A) 3 %; Neutrophils # (A) 8.3 k/uL (1.3-7.7); Neutrophils % (A) 87 %; Platelet Count 193 k/uL (150-450); RBC 4.13 m/uL (3.80-5.40); RDW 13.7 % (11.5-15.5); WBC 9.6 k/uL (3.8-10.6)
[2019-06-03 07:03] LABS: Glucose,Whole Blood 231 mg/dL (75-99)
[2019-06-03 07:06] LABS: African American GFR (CKD) >90 (>60 ml/min/1.73 sqM); Anion Gap 11 mmol/L; Blood Urea Nitrogen 9 mg/dL (7-17); Calcium 8.5 mg/dL (8.4-10.2); Carbon Dioxide 25 mmol/L (22-30); Chloride 104 mmol/L (98-107); Glucose 263 mg/dL (74-99); Potassium 4.2 mmol/L (3.5-5.1); Sodium 140 mmol/L (137-145)
[2019-06-03] MEDS: INSULIN ASPART (NovoLOG) 100 UNIT/ML VIAL SQ SCH ×4 (08:29→21:41)
[2019-06-03] MEDS: CLOBETASOL PROP 0.05% CR 15GM TOPICAL SCH ×2 (08:30→21:58)
[2019-06-03] MEDS: AZITHROMYCIN 500 MG TAB PO SCH (08:30)
[2019-06-03] MEDS: HEPARIN SODIUM,PORCINE 5,000 UNIT/ML 1 ML VIAL SQ SCH ×3 (08:30→23:14)
--- NOTE | 2019-06-03 12:14 | P.PN ---
Subjective Progress Note Date: 06/03/19 Principal diagnosis: Dyspnea, chest pain this is 63-year-old white female patient of Dr. Shea with past medical history of mild intermittent bronchial asthma, which has been stable for quite some time, diabetes mellitus, rheumatoid arthritis, sleep apnea, hypothyroidism, Crohn's disease, history of uterine cancer in 1980 status post surgical removal and patient did not require chemo or radiation, who came into the emergency department on 06/01/2019 for evaluation of 2 day history of fever, chills, with a temp as high as 10 3F, pleuritic chest pain, and shortness of breath. Patient states she hurts throughout her chest when she takes a deep breath, and was having dizziness. She denied any sore throat, denied any cough, congestion, denied any nausea vomiting, denied any dysuria,no neck stiffness. no leg swelling.lab work revealed positive urinalysis, elevated white blood cell count,CT angios chest was completed showing no evidence of pulmonary embolism, however it is shown numerous nodular infiltrates in both lungs with questionable metastatic process. patient had a recent PET scan in February 2019 which showed no suspicious hypermetabolic uptake, and subcentimeter pulmonary nodule. patient was started on Zithromax and Rocephin, for possibility of acute urinary tract infection and pneumonia. The patient is seen today 06/03/2019 in follow-up on the regular medical floor. She is currently resting comfortably in bed. Laying flat. No worsening shortness of breath, cough or congestion. Maintaining O2 saturations in the 90s on room air. She's afebrile. Hemodynamically stable. Urine culture positive for gram-negative bacilli. Blood culture showing no growth. White count 9.6. Hemoglobin 12.8. Creatinine 0.52. She remains on ceftriaxone and azithromycin. Objective - Vital Signs Vital signs: Vital Signs Temp 97.4 F L 06/03/19 05:00 Pulse 52 L 06/03/19 05:00 Resp 16 06/03/19 05:00 BP 141/65 06/03/19 05:00 Pulse Ox 94 L 06/03/19 05:00 Intake & Output 06/02/19 06/03/19 06/03/19 18:59 06:59 18:59 Intake Total 840 1900 Output Total 300 Balance 840 1600 Intake: Intake, IV Titration 720 Amount Sodium Chloride 0.9% 1, 720 000 ml @ 80 mls/hr IV . [id number] [facility] Rx#:[id number] Oral 840 1180 Output: Emesis 300 Other: Voiding Method Toilet Toilet # Voids 2 3 # Bowel Movements 1 1 - Exam GENERAL EXAM: Alert, pleasant, morbidly obese 63-year-old female patient, on room air, comfortable in no apparent distress. HEAD: Normocephalic/atraumatic. EYES: Normal reaction of pupils, equal size. Conjunctiva pink, sclera white. NOSE: Clear with pink turbinates. THROAT: No erythema or exudates. NECK: No masses, no JVD, no thyroid enlargement, no adenopathy. CHEST: No chest wall deformity. Symmetrical expansion. LUNGS: Diminished air entry with no crackles, wheeze, rhonchi or dullness. CVS: Regular rate and rhythm, normal S1 and S2, no gallops, no murmurs, no rubs ABDOMEN: Soft, nontender. No hepatosplenomegaly, normal bowel sounds, no guarding or rigidity. EXTREMITIES: No clubbing, no edema, no cyanosis, 2+ pulses and upper and lower extremities. MUSCULOSKELETAL: Muscle strength and tone normal. SPINE: No scoliosis or deformity SKIN: No rashes CENTRAL NERVOUS SYSTEM: No focal deficits, tone is normal in all 4 extremities. PSYCHIATRIC: Alert and oriented -3. Appropriate affect. Intact judgment and insight. - Labs CBC & Chem 7: 06/03/19 06:29 06/03/19 06:29 Labs: Abnormal Lab Results - Last 24 Hours (Table) 06/02/19 06/02/19 06/02/19 Range/Units 17:10 20:06 23:54 Neutrophils # (1.3-7.7) k/uL Lymphocytes # (1.0-4.8) k/uL Glucose (74-99) mg/dL POC Glucose (mg/dL) 166 H 193 H 209 H (75-99) mg/dL 06/03/19 06/03/19 06/03/19 Range/Units 06:29 06:29 07:02 Neutrophils # 8.3 H (1.3-7.7) k/uL Lymphocytes # 0.9 L (1.0-4.8) k/uL Glucose 263 H (74-99) mg/dL POC Glucose (mg/dL) 231 H (75-99) mg/dL Microbiology - Last 24 Hours (Table) 06/01/19 15:25 Urine Culture - Preliminary Urine,Voided Gram Neg Bacilli 06/01/19 13:15 Blood Culture - Preliminary Blood No Growth after 24 hours Assessment and Plan Assessment: Impression: #1. Dyspnea, febrile illness of unclear etiology, CTA chest was negative for any evidence of pulmonary embolism, but showed numerous nodular infiltrates, with a possibility of metastatic disease. Recent PET scan in February 2019 showed no suspicious uptake #2. Chest pain with inspiration, possibly muscular skeletal in nature #3. Acute urinary tract infection secondary to gram-negative bacilli #4. Possible mass at the base of the tongue on the right side #5. Previous history of uterine cancer diagnosed in 1980 status post surgical resection, patient did not require chemo or radiation following surgery #6. History of diabetes mellitus #7. History of mild intermittent bronchial asthma, stable #8. Rheumatoid arthritis #9. Sleep apnea on CPAP #10. Crohn's disease #11. Lifetime nonsmoker Plan: The patient was seen and evaluated by Dr. Stephens. She is currently stable from the pulmonary standpoint. She's been seen by oncology. ENT consult for possible biopsy of the mass at the base of the tongue. Repeat his CT scan of the chest in 3 months. The patient does reside in [place]. We will increase her activity as tolerated. Continue to follow. I, the cosigning physician, performed a history & physical examination of the patient. Lungs sounds diminished bilaterally. Maintaining good O2 saturations in the 90s on room air. I discussed the assessment and plan of care with my nurse practitioner, Constance Epps. I attest to the above note as dictated by her.
[2019-06-03 12:27] LABS: Glucose,Whole Blood 237 mg/dL (75-99)
--- NOTE | 2019-06-03 14:20 | P.PN ---
Subjective This pleasant 63-year-old white female well-known to the practice. Palate she has a one-day history of fever, chest pain on the left side, and pain with deep inspiration. She was short of breath. She also had some nausea and vomiting. She was found to have numerous nodular infiltrates and stellate infiltrates in both lungs. These infiltrates currently significantly increased from a CT dated 02/22/2019. The patient is feeling better now. Discussed the case Dr. Stephens reviewed the films himself, but he feels that these are less likely to be malignancy would reevaluate these in 3 months. An incidental finding that was noted on CT of the neck showing possible mass at the base of the tongue on the right side. Early patient is feeling much better. Emergency room is placed her on Rocephin and azithromycin. She is on IV fluids. Her MAXIMUM TEMPERATURE is been 103.0F as of 0240. She is type II diabetic and takes metformin and glimepiride. June 03, 2019: Patient feels slightly better. Dr. Herrera had seen her continu ing her Rocephin and Zithromax. She is known to be immunosuppressed due to rheumatoid arthritis and Crohn's disease with Remicade. She reports her pain is improved. She has minimal shortness of breath. No nausea or vomiting today. No diarrhea or constipation. TMAX is 100.0 deg F Objective - Vital Signs Vital signs: Vital Signs Temp 97.9 F 06/03/19 12:45 Pulse 52 L 06/03/19 05:00 Resp 16 06/03/19 12:45 BP 128/76 06/03/19 12:45 Pulse Ox 96 06/03/19 12:45 Intake & Output 06/02/19 06/03/19 06/03/19 18:59 06:59 18:59 Intake Total 840 1900 240 Output Total 300 Balance 840 1600 240 Intake: Intake, IV Titration 720 Amount Sodium Chloride 0.9% 1, 720 000 ml @ 80 mls/hr IV . [id number] [facility] Rx#:[id number] Oral 840 1180 240 Output: Emesis 300 Other: Voiding Method Toilet Toilet # Voids 2 3 # Bowel Movements 1 1 - Exam GENERAL: fatigued, well-nourished and in no acute distress. Somewhat obese white female. NECK: Normal range of motion, supple without lymphadenopathy or JVD, no thyromegaly LUNGS: Breath sounds coarse to auscultation bilaterally and equal. No wheezes rales or rhonchi. She is unable to take a significant deep breath without pain stopping her.this is improved from yesterday HEART: Regular rate and rhythm without murmurs, rubs or gallops.S1S2 Normal ABDOMEN: Soft, nontender, normoactive bowel sounds. No guarding, no rebound. No masses appreciated. EXTREMITIES: Normal range of motion, no pitting or edema. No clubbing or cyanosis. NEUROLOGICAL: Cranial nerves II through XII grossly intact. Normal speech, normal gait. PSYCH: Normal mood, normal affect. SKIN: Warm, Dry, normal turgor, no rashes or lesions noted. - Labs CBC & Chem 7: 06/03/19 06:29 06/03/19 06:29 Labs: Abnormal Lab Results - Last 24 Hours (Table) 06/02/19 06/02/19 06/02/19 Range/Units 17:10 20:06 23:54 Neutrophils # (1.3-7.7) k/uL Lymphocytes # (1.0-4.8) k/uL Glucose (74-99) mg/dL POC Glucose (mg/dL) 166 H 193 H 209 H (75-99) mg/dL 06/03/19 06/03/19 06/03/19 Range/Units 06:29 06:29 07:02 Neutrophils # 8.3 H (1.3-7.7) k/uL Lymphocytes # 0.9 L (1.0-4.8) k/uL Glucose 263 H (74-99) mg/dL POC Glucose (mg/dL) 231 H (75-99) mg/dL 06/03/19 Range/Units 12:26 Neutrophils # (1.3-7.7) k/uL Lymphocytes # (1.0-4.8) k/uL Glucose (74-99) mg/dL POC Glucose (mg/dL) 237 H (75-99) mg/dL Microbiology - Last 24 Hours (Table) 06/01/19 15:25 Urine Culture - Preliminary Urine,Voided Gram Neg Bacilli 06/01/19 13:15 Blood Culture - Preliminary Blood No Growth after 24 hours Assessment and Plan (1) Lung mass Current Visit: Yes Status: Acute Code(s): R91.8 - OTHER NONSPECIFIC ABNORMAL FINDING OF LUNG FIELD SNOMED Code(s): 922153865 (2) Pneumonia Current Visit: Yes Status: Acute Code(s): J18.9 - PNEUMONIA, UNSPECIFIED ORGANISM SNOMED Code(s): 394759538 (3) Tongue mass Current Visit: Yes Status: Acute Code(s): R22.0 - LOCALIZED SWELLING, MASS AND LUMP, HEAD SNOMED Code(s): 768992396 (4) Diabetes Current Visit: Yes Status: Acute Code(s): E11.9 - TYPE 2 DIABETES MELLITUS WITHOUT COMPLICATIONS SNOMED Code(s): 91793257 (5) Dementia Current Visit: Yes Status: Acute Code(s): F03.90 - UNSPECIFIED DEMENTIA WITHOUT BEHAVIORAL DISTURBANCE SNOMED Code(s): 30102361 (6) H/O cancer of uterus Current Visit: Yes Status: Acute Code(s): Z85.42 - PERSONAL HISTORY OF MALIGNANT NEOPLASM OF OTH PRT UTERUS SNOMED Code(s): 008864353 (7) Back pain Current Visit: Yes Status: Acute Code(s): M54.9 - DORSALGIA, UNSPECIFIED SNOMED Code(s): 991602781 (8) Chest pain Current Visit: Yes Status: Acute Code(s): R07.9 - CHEST PAIN, UNSPECIFIED SNOMED Code(s): 10061162 (9) Febrile illness, acute Current Visit: Yes Status: Acute Code(s): R50.9 - FEVER, UNSPECIFIED SNOMED Code(s): 292164975 (10) Urinary tract infection Current Visit: Yes Status: Acute Code(s): N39.0 - URINARY TRACT INFECTION, SITE NOT SPECIFIED SNOMED Code(s): 65305115 (11) Immunosuppressed status Current Visit: Yes Status: Acute Code(s): D89.9 - DISORDER INVOLVING THE IMMUNE MECHANISM, UNSPECIFIED SNOMED Code(s): 62696881 Plan: She'll continue on her current medications Rocephin, azithromycin. subcutaneous heparin, NovoLog scale. repeat labs in a.m. she will be Reevaluated next 24 hours. Continue NovoLog scale and Accu-Cheks before meals and at bedtime. We'll continue to hold her metformin for total 48 hours after her IV contrast.
[2019-06-03 14:56] LABS: Hemoglobin A1C 7.2 % (4.0-6.0)
[2019-06-03 15:52] LABS: Glucose,Whole Blood 312 mg/dL (75-99)
--- NOTE | 2019-06-03 16:00 | P.PN ---
Subjective Progress Note Date: 06/03/19 Principal diagnosis: mass on Tongue base Waiting on ENT evaluation regarding base of tingue mass. Discussed pulmonary nodules with pulmonary team and felt to be non specific. She does receive [id number] remicade infusions. Objective - Vital Signs Vital signs: Vital Signs Temp 97.9 F 06/03/19 12:45 Pulse 52 L 06/03/19 05:00 Resp 16 06/03/19 12:45 BP 128/76 06/03/19 12:45 Pulse Ox 96 06/03/19 12:45 Intake & Output 06/02/19 06/03/19 06/03/19 18:59 06:59 18:59 Intake Total 840 1900 240 Output Total 300 Balance 840 1600 240 Intake: Intake, IV Titration 720 Amount Sodium Chloride 0.9% 1, 720 000 ml @ 80 mls/hr IV . [id number] [facility] Rx#:[id number] Oral 840 1180 240 Output: Emesis 300 Other: Voiding Method Toilet Toilet # Voids 2 3 3 # Bowel Movements 1 1 - Exam Gen: Alert and Oriented, NAD Head: NCNT Neck Supple Heart RRR Lungs No increased effort CTA B Abdomen: S/ND/NT Ext: No Rash, No Edema, Equal Strength Psych: Calm and Coroperative Neuro: No Focal Deficits Noted. - Labs CBC & Chem 7: 06/03/19 06:29 06/03/19 06:29 Labs: Abnormal Lab Results - Last 24 Hours (Table) 06/02/19 06/02/19 06/02/19 Range/Units 17:10 20:06 23:54 Neutrophils # (1.3-7.7) k/uL Lymphocytes # (1.0-4.8) k/uL Glucose (74-99) mg/dL POC Glucose (mg/dL) 166 H 193 H 209 H (75-99) mg/dL Hemoglobin A1c (4.0-6.0) % 06/03/19 06/03/19 06/03/19 Range/Units 06:29 06:29 06:29 Neutrophils # 8.3 H (1.3-7.7) k/uL Lymphocytes # 0.9 L (1.0-4.8) k/uL Glucose 263 H (74-99) mg/dL POC Glucose (mg/dL) (75-99) mg/dL Hemoglobin A1c 7.2 H (4.0-6.0) % 06/03/19 06/03/19 06/03/19 Range/Units 07:02 12:26 15:51 Neutrophils # (1.3-7.7) k/uL Lymphocytes # (1.0-4.8) k/uL Glucose (74-99) mg/dL POC Glucose (mg/dL) 231 H 237 H 312 H (75-99) mg/dL Hemoglobin A1c (4.0-6.0) % Microbiology - Last 24 Hours (Table) 06/01/19 13:15 Blood Culture - Preliminary Blood No Growth after 48 hours 06/01/19 15:25 Urine Culture - Preliminary Urine,Voided Gram Neg Bacilli Assessment and Plan Plan: Assessment and recommendations: Bilateral lung nodules, nonspecific - no FDG avidity on past PET although concern wor increase - Pulm Following - Rec repeat PET as outpatient New Base of Tongue Mass in patient with history of cervical cancer: - ENT consulted - Recommend tissue biopsy Pleuretic Chest pain, Pneumonia: - Antibiotics - Pulm Following Hx: Cervical Cancer in 1980 - wit partial hysterectomy. Plan: recommend Biopsy of tongue mass Repeat imaging of Chest outpatient I have completed the full history and physical of this patient and developed the complete impression and plan, Agree with Esperanza SCHWARTZ, dictated as a scribe
[2019-06-03] MEDS: ACETAMINOPHEN TAB 325 MG TAB PO PRN (16:52)
[2019-06-03] MEDS: MORPHINE SULFATE 2 MG/ML SYRINGE IVP PRN (16:56)
[2019-06-03 20:18] LABS: Glucose,Whole Blood 258 mg/dL (75-99)
[2019-06-03] MEDS: DONEPEZIL 10 MG TAB PO SCH (21:40)
--- NOTE | 2019-06-03 23:00 | P.PN ---
Subjective Progress Note Date: 06/03/19 63-year-old female with a history of remote cervical cancer and underwent partial hysterectomy 1981 presents to Hospital feeling ill. She developed fever chills increasing shortness of breath and a fever of 103. Because of this she was brought in the hospital there was concerns to multi lobar pneumonia. Also evidence of some possible lymphadenopathy. With concerns pneumonia and a consult was requested. The patient has had imaging studies that reveal evidence of the computed tomography scan of the chest without evidence of pulmonary embolism evidence of the patchy reticular nodular infiltrates bilaterally as well as some increased expiratory lymph nodes. Computed tomography scan of the neck was performed because of the chest and neck pain evidence of minimal cervical lymphadenopathy however there was the asymmetries the base of the tongue with concerns to mass. Oncology has been consulted. 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 She routinely lives in [place] and comes to [place] just for part of the summer to escape the heat of [place]. 06/03/2019 the patient has shown improvement since admission. Temperature has gone from 103-97.4. Readings improved however still having the pain in the right anterior chest wall. She relates that her fevers have improved. We discussed him going abnormal blood work. Objective - Vital Signs Vital signs: Vital Signs Temp 97.6 F 06/03/19 19:56 Pulse 76 06/03/19 19:56 Resp 16 06/03/19 19:56 BP 117/65 06/03/19 19:56 Pulse Ox 94 L 06/03/19 19:56 Intake & Output 06/03/19 06/03/19 06/04/19 06:59 18:59 06:59 Intake Total 1900 240 880 Output Total 300 Balance 1600 240 880 Intake: Intake, IV Titration 720 280 Amount Sodium Chloride 0.9% 1, 720 280 000 ml @ 80 mls/hr IV . [id number] [facility] Rx#:[id number] Oral 1180 240 600 Output: Emesis 300 Other: Voiding Method Toilet Toilet # Voids 3 3 # Bowel Movements 1 - Labs CBC & Chem 7: 06/03/19 06:29 06/03/19 06:29 Labs: Abnormal Lab Results - Last 24 Hours (Table) 06/02/19 06/03/19 06/03/19 Range/Units 23:54 06:29 06:29 Neutrophils # 8.3 H (1.3-7.7) k/uL Lymphocytes # 0.9 L (1.0-4.8) k/uL Glucose (74-99) mg/dL POC Glucose (mg/dL) 209 H (75-99) mg/dL Hemoglobin A1c 7.2 H (4.0-6.0) % 06/03/19 06/03/19 06/03/19 Range/Units 06:29 07:02 12:26 Neutrophils # (1.3-7.7) k/uL Lymphocytes # (1.0-4.8) k/uL Glucose 263 H (74-99) mg/dL POC Glucose (mg/dL) 231 H 237 H (75-99) mg/dL Hemoglobin A1c (4.0-6.0) % 06/03/19 06/03/19 Range/Units 15:51 20:16 Neutrophils # (1.3-7.7) k/uL Lymphocytes # (1.0-4.8) k/uL Glucose (74-99) mg/dL POC Glucose (mg/dL) 312 H 258 H (75-99) mg/dL Hemoglobin A1c (4.0-6.0) % Microbiology - Last 24 Hours (Table) 06/01/19 15:25 Urine Culture - Preliminary Urine,Voided Escherichia coli 06/01/19 13:15 Blood Culture - Preliminary Blood No Growth after 48 hours Assessment and Plan (1) Chest pain Current Visit: Yes Status: Acute Code(s): R07.9 - CHEST PAIN, UNSPECIFIED SNOMED Code(s): 89939809 (2) Febrile illness, acute Narrative/Plan: 63-year-old woman who has a remote history of cervical cancer status post partial hysterectomy in 1980 presents to hospital with increasing shortness of breath and discomfort in her chest. She is evidence of the abnormalities noted on her chest x-ray and computed tomography scan. The computed tomography scan is a bit more ominous with the numerous infiltrates and some lymphadenopathy. There is also notation of the abnormality to the base of the tongue for which further evaluation is been requested from oncology. The patient had a fever admission and evidence of pneumonic infiltration in counseling antibiotic therapy was initiated with Rocephin and azithromycin. This will continue while cultures are process. Urine Legionella and Mycoplasma titers are requested. Atypical pneumonitis is of concern. Urine culture is abnormal and likely has gram-negative bacilli being seen for which the Rocephin should be effective. Blood cultures are process. She is feeling slightly better today with current pain medications. 06/03/2019 patient is feeling somewhat better today. This really does not feel well. She'll having some right-sided chest discomfort. Fevers are improved. Still short of breath. Urine culture has gram-negative bacilli. Continue current antibiotic therapy pending further culture results. Urine Legionella antigen and mycoplasma titers are pending. Blood cultures pending. The current antibiotic therapy should adequately treat underlying urinary tract infection if verified. Current Visit: Yes Status: Acute Code(s): R50.9 - FEVER, UNSPECIFIED SNOMED Code(s): 880259463 (3) Tongue mass Current Visit: Yes Status: Acute Code(s): R22.0 - LOCALIZED SWELLING, MASS AND LUMP, HEAD SNOMED Code(s): 766437906
[2019-06-04] MEDS: ACETAMINOPHEN TAB 325 MG TAB PO PRN (03:07)
[2019-06-04] MEDS: MORPHINE SULFATE 2 MG/ML SYRINGE IVP PRN ×2 (03:13→14:02)
[2019-06-04 05:48] LABS: Mycoplasma IgM Antibody 0.58 INDEX (<=0.90)
[2019-06-04 07:12] LABS: Glucose,Whole Blood 254 mg/dL (75-99)
[2019-06-04] MEDS: INSULIN ASPART (NovoLOG) 100 UNIT/ML VIAL SQ SCH ×4 (07:31→20:27)
[2019-06-04] MEDS: HEPARIN SODIUM,PORCINE 5,000 UNIT/ML 1 ML VIAL SQ SCH ×3 (07:31→23:35)
[2019-06-04 08:05] LABS: Basophils # (A) 0.1 k/uL (0-0.2); Basophils % (A) 1 %; Eosinophils # (A) 0.1 k/uL (0-0.7); Eosinophils % (A) 1 %; HCT 33.4 % (34.0-46.0); HGB 10.9 gm/dL (11.4-16.0); Lymphocytes # (A) 2.1 k/uL (1.0-4.8); Lymphocytes % (A) 24 %; MCH 30.7 pg (25.0-35.0); MCHC 32.5 g/dL (31.0-37.0); MCV 94.4 fL (80.0-100.0); Mean Platelet Volume 7.4; Monocytes # (A) 0.4 k/uL (0-1.0); Monocytes % (A) 5 %; Neutrophils # (A) 5.9 k/uL (1.3-7.7); Neutrophils % (A) 67 %; Platelet Count 219 k/uL (150-450); RBC 3.53 m/uL (3.80-5.40); RDW 13.8 % (11.5-15.5); WBC 8.8 k/uL (3.8-10.6)
[2019-06-04 08:17] LABS: African American GFR (CKD) >90 (>60 ml/min/1.73 sqM); Anion Gap 8 mmol/L; Blood Urea Nitrogen 16 mg/dL (7-17); Carbon Dioxide 25 mmol/L (22-30); Chloride 107 mmol/L (98-107); Glucose 231 mg/dL (74-99); Potassium 3.9 mmol/L (3.5-5.1); Sodium 140 mmol/L (137-145)
[2019-06-04] MEDS: CLOBETASOL PROP 0.05% CR 15GM TOPICAL SCH ×2 (08:25→20:27)
[2019-06-04] MEDS: AZITHROMYCIN 500 MG TAB PO SCH (08:25)
--- NOTE | 2019-06-04 11:39 | P.PN ---
Subjective Progress Note Date: 06/04/19 Principal diagnosis: Dyspnea, chest pain this is 63-year-old white female patient of Dr. Shea with past medical history of mild intermittent bronchial asthma, which has been stable for quite some time, diabetes mellitus, rheumatoid arthritis, sleep apnea, hypothyroidism, Crohn's disease, history of uterine cancer in 1980 status post surgical removal and patient did not require chemo or radiation, who came into the emergency department on 06/01/2019 for evaluation of 2 day history of fever, chills, with a temp as high as 10 3F, pleuritic chest pain, and shortness of breath. Patient states she hurts throughout her chest when she takes a deep breath, and was having dizziness. She denied any sore throat, denied any cough, congestion, denied any nausea vomiting, denied any dysuria,no neck stiffness. no leg swelling.lab work revealed positive urinalysis, elevated white blood cell count,CT angios chest was completed showing no evidence of pulmonary embolism, however it is shown numerous nodular infiltrates in both lungs with questionable metastatic process. patient had a recent PET scan in February 2019 which showed no suspicious hypermetabolic uptake, and subcentimeter pulmonary nodule. patient was started on Zithromax and Rocephin, for possibility of acute urinary tract infection and pneumonia. The patient is seen today 06/03/2019 in follow-up on the regular medical floor. She is currently resting comfortably in bed. Laying flat. No worsening shortness of breath, cough or congestion. Maintaining O2 saturations in the 90s on room air. She's afebrile. Hemodynamically stable. Urine culture positive for gram-negative bacilli. Blood culture showing no growth. White count 9.6. Hemoglobin 12.8. Creatinine 0.52. She remains on ceftriaxone and azithromycin. The patient is seen today 06/04/2019 in follow-up on the regular medical floor. She is awake and alert in no acute distress. Sitting up in bed. Having some left-sided chest discomfort. Mainly with movement and inhalation. No worsening shortness of breath. She is maintaining good O2 saturations in the low 90s on room air. She's afebrile. Hemodynamically stable. Urine culture was positive for E. coli. Blood culture shows no growth. White count 8.8. Hemoglobin 10.9. Creatinine 0.53. She remains on ceftriaxone and azithromycin. Objective - Vital Signs Vital signs: Vital Signs Temp 97.5 F L 06/04/19 04:35 Pulse 73 06/04/19 04:35 Resp 18 06/04/19 04:35 BP 94/50 06/04/19 04:35 Pulse Ox 93 L 06/04/19 04:35 Intake & Output 06/03/19 06/04/19 06/04/19 18:59 06:59 18:59 Intake Total 240 1520 Balance 240 1520 Intake: Intake, IV Titration 920 Amount Sodium Chloride 0.9% 1, 920 000 ml @ 80 mls/hr IV . [id number] [facility] Rx#:[id number] Oral 240 600 Other: Voiding Method Toilet Toilet Toilet # Voids 3 - Exam GENERAL EXAM: Alert, pleasant, morbidly obese 63-year-old female patient, on room air, comfortable in no apparent distress. HEAD: Normocephalic/atraumatic. EYES: Normal reaction of pupils, equal size. Conjunctiva pink, sclera white. NOSE: Clear with pink turbinates. THROAT: No erythema or exudates. NECK: No masses, no JVD, no thyroid enlargement, no adenopathy. CHEST: No chest wall deformity. Symmetrical expansion. LUNGS: Diminished air entry with no crackles, wheeze, rhonchi or dullness. CVS: Regular rate and rhythm, normal S1 and S2, no gallops, no murmurs, no rubs ABDOMEN: Soft, nontender. No hepatosplenomegaly, normal bowel sounds, no guarding or rigidity. EXTREMITIES: No clubbing, no edema, no cyanosis, 2+ pulses and upper and lower extremities. MUSCULOSKELETAL: Muscle strength and tone normal. SPINE: No scoliosis or deformity SKIN: No rashes CENTRAL NERVOUS SYSTEM: No focal deficits, tone is normal in all 4 extremities. PSYCHIATRIC: Alert and oriented -3. Appropriate affect. Intact judgment and insight. - Labs CBC & Chem 7: 06/04/19 07:13 06/04/19 07:13 Labs: Abnormal Lab Results - Last 24 Hours (Table) 06/02/19 06/03/19 06/03/19 Range/Units 06:48 06:29 12:26 RBC (3.80-5.40) m/uL Hgb (11.4-16.0) gm/dL Hct (34.0-46.0) % Glucose (74-99) mg/dL POC Glucose (mg/dL) 237 H (75-99) mg/dL Hemoglobin A1c 7.2 H (4.0-6.0) % Calcium (8.4-10.2) mg/dL Mycoplasma pneumon IgG 1.28 H (<=0.90) INDEX 06/03/19 06/03/19 06/04/19 Range/Units 15:51 20:16 07:10 RBC (3.80-5.40) m/uL Hgb (11.4-16.0) gm/dL Hct (34.0-46.0) % Glucose (74-99) mg/dL POC Glucose (mg/dL) 312 H 258 H 254 H (75-99) mg/dL Hemoglobin A1c (4.0-6.0) % Calcium (8.4-10.2) mg/dL Mycoplasma pneumon IgG (<=0.90) INDEX 06/04/19 06/04/19 Range/Units 07:13 07:13 RBC 3.53 L (3.80-5.40) m/uL Hgb 10.9 L (11.4-16.0) gm/dL Hct 33.4 L (34.0-46.0) % Glucose 231 H (74-99) mg/dL POC Glucose (mg/dL) (75-99) mg/dL Hemoglobin A1c (4.0-6.0) % Calcium 8.0 L (8.4-10.2) mg/dL Mycoplasma pneumon IgG (<=0.90) INDEX Microbiology - Last 24 Hours (Table) 06/01/19 15:25 Urine Culture - Preliminary Urine,Voided Escherichia coli 06/01/19 13:15 Blood Culture - Preliminary Blood No Growth after 48 hours Assessment and Plan Assessment: Impression: #1. Dyspnea, febrile illness of unclear etiology, CTA chest was negative for any evidence of pulmonary embolism, but showed numerous nodular infiltrates, with a possibility of metastatic disease. Recent PET scan in February 2019 showed no suspicious uptake. #2. Chest pain with inspiration, possibly muscular skeletal in nature #3. Acute urinary tract infection secondary to E. coli. #4. Possible mass at the base of the tongue on the right side #5. Previous history of uterine cancer diagnosed in 1980 status post surgical resection, patient did not require chemo or radiation following surgery #6. History of diabetes mellitus #7. History of mild intermittent bronchial asthma, stable #8. Rheumatoid arthritis #9. Sleep apnea on CPAP #10. Crohn's disease #11. Lifetime nonsmoker Plan: The patient was seen and evaluated by Dr. Stephens. Some pleuritic-type chest discomfort. We will initiate a Medrol Dosepak. She is currently stable from the pulmonary standpoint. ENT consult for possible biopsy of the mass at the base of the tongue. Repeat CT scan of the chest in 3 months. The patient does reside in [place]. We will increase her activity as tolerated. Continue to follow. I, the cosigning physician, performed a history & physical examination of the patient. Lungs sounds clear bilaterally. Maintaining good O2 saturations in the 90s on room air. I discussed the assessment and plan of care with my nurse practitioner, Constance Epps. I attest to the above note as dictated by her.
[2019-06-04 12:04] VITALS: RESP 16
[2019-06-04 12:25] LABS: Glucose,Whole Blood 149 mg/dL (75-99)
[2019-06-04] MEDS: metFORMIN 500 MG TAB PO SCH (12:25)
[2019-06-04] MEDS: GLIMEPIRIDE 4 MG TAB PO SCH (12:25)
[2019-06-04] MEDS: methylPREDNISolone 4 MG TAB TAPER PO SCH (14:03)
--- NOTE | 2019-06-04 14:43 | P.PN ---
Subjective Progress Note Date: 06/04/19 Principal diagnosis: mass on Tongue base Complains of increased SOB today and left sided rib pain. We are hoping for ENT to obtain biopsy prior to discharge, RN discussion and will calll Objective - Vital Signs Vital signs: Vital Signs Temp 98.3 F 06/04/19 11:16 Pulse 57 L 06/04/19 11:16 Resp 16 06/04/19 11:16 BP 149/83 06/04/19 11:16 Pulse Ox 94 L 06/04/19 11:16 Intake & Output 06/03/19 06/04/19 06/04/19 18:59 06:59 18:59 Intake Total 240 1520 Balance 240 1520 Intake: Intake, IV Titration 920 Amount Sodium Chloride 0.9% 1, 920 000 ml @ 80 mls/hr IV . [id number] [facility] Rx#:[id number] Oral 240 600 Other: Voiding Method Toilet Toilet Toilet # Voids 3 1 - Exam Gen: Alert and Oriented, NAD Head: NCNT Neck Supple Heart RRR Lungs No increased effort CTA B Abdomen: S/ND/NT Ext: No Rash, No Edema, Equal Strength Psych: Calm and Coroperative Neuro: No Focal Deficits Noted. - Labs CBC & Chem 7: 06/04/19 07:13 06/04/19 07:13 Labs: Abnormal Lab Results - Last 24 Hours (Table) 06/02/19 06/02/19 06/03/19 Range/Units 06:48 20:58 06:29 RBC (3.80-5.40) m/uL Hgb (11.4-16.0) gm/dL Hct (34.0-46.0) % Glucose (74-99) mg/dL POC Glucose (mg/dL) (75-99) mg/dL Hemoglobin A1c 7.2 H (4.0-6.0) % Calcium (8.4-10.2) mg/dL Urine Legionella Ag DETECTED H (Not detected) Mycoplasma pneumon IgG 1.28 H (<=0.90) INDEX 06/03/19 06/03/19 06/04/19 Range/Units 15:51 20:16 07:10 RBC (3.80-5.40) m/uL Hgb (11.4-16.0) gm/dL Hct (34.0-46.0) % Glucose (74-99) mg/dL POC Glucose (mg/dL) 312 H 258 H 254 H (75-99) mg/dL Hemoglobin A1c (4.0-6.0) % Calcium (8.4-10.2) mg/dL Urine Legionella Ag (Not detected) Mycoplasma pneumon IgG (<=0.90) INDEX 06/04/19 06/04/19 06/04/19 Range/Units 07:13 07:13 12:24 RBC 3.53 L (3.80-5.40) m/uL Hgb 10.9 L (11.4-16.0) gm/dL Hct 33.4 L (34.0-46.0) % Glucose 231 H (74-99) mg/dL POC Glucose (mg/dL) 149 H (75-99) mg/dL Hemoglobin A1c (4.0-6.0) % Calcium 8.0 L (8.4-10.2) mg/dL Urine Legionella Ag (Not detected) Mycoplasma pneumon IgG (<=0.90) INDEX Microbiology - Last 24 Hours (Table) 06/01/19 15:25 Urine Culture - Preliminary Urine,Voided Escherichia coli 06/01/19 13:15 Blood Culture - Preliminary Blood No Growth after 48 hours Assessment and Plan Plan: Assessment and recommendations: Bilateral lung nodules, nonspecific - no FDG avidity on past PET although concern wor increase - Pulm Following - Rec repeat PET as outpatient New Base of Tongue Mass in patient with history of cervical cancer: - ENT consulted - Recommend tissue biopsy Pleuretic Chest pain, Pneumonia: - Antibiotics - Pulm Following Hx: Cervical Cancer in 1980 - wit partial hysterectomy. Plan: recommend Biopsy of tongue mass to be obtained while inpatient therefore further testing can be done if malignancy is proven Chest xray for increased sob. Repeat imaging of Chest outpatient I have completed the full history and physical of this patient and developed the complete impression and plan, Agree with Esperanza SCHWARTZ, dictated as a scribe
--- NOTE | 2019-06-04 15:39 | P.PN ---
Subjective This pleasant 63-year-old white female well-known to the practice. Palate she has a one-day history of fever, chest pain on the left side, and pain with deep inspiration. She was short of breath. She also had some nausea and vomiting. She was found to have numerous nodular infiltrates and stellate infiltrates in both lungs. These infiltrates currently significantly increased from a CT dated 02/22/2019. The patient is feeling better now. Discussed the case Dr. Stephens reviewed the films himself, but he feels that these are less likely to be malignancy would reevaluate these in 3 months. An incidental finding that was noted on CT of the neck showing possible mass at the base of the tongue on the right side. Early patient is feeling much better. Emergency room is placed her on Rocephin and azithromycin. She is on IV fluids. Her MAXIMUM TEMPERATURE is been 103.0F as of 0240. She is type II diabetic and takes metformin and glimepiride. June 03, 2019: Patient feels slightly better. Dr. Herrera had seen her continu ing her Rocephin and Zithromax. She is known to be immunosuppressed due to rheumatoid arthritis and Crohn's disease with Remicade. She reports her pain is improved. She has minimal shortness of breath. No nausea or vomiting today. No diarrhea or constipation. TMAX is 100.0 deg F June 04, 2019: Patient is doing well, her chest pain is still present but improved. T-max is now 99.7. She remains on antibiotics of azithromycin and Rocephin. Her sugars have been elevated and metformin and glimepiride been restarted. She also remains on Medrol Dosepak started by hematology. She continues to be anxious about the tongue mass and the lung lesions. Clinically though she is improved. Urine culture + for ECOLI. Objective - Vital Signs Vital signs: Vital Signs Temp 98.3 F 06/04/19 11:16 Pulse 57 L 06/04/19 11:16 Resp 16 06/04/19 11:16 BP 149/83 06/04/19 11:16 Pulse Ox 94 L 06/04/19 11:16 Intake & Output 06/03/19 06/04/19 06/04/19 18:59 06:59 18:59 Intake Total 240 1520 Balance 240 1520 Intake: Intake, IV Titration 920 Amount Sodium Chloride 0.9% 1, 920 000 ml @ 80 mls/hr IV . [id number] [facility] Rx#:[id number] Oral 240 600 Other: Voiding Method Toilet Toilet Toilet # Voids 3 1 - Exam GENERAL: fatigued, well-nourished and in no acute distress. Somewhat obese white female. apperas improved NECK: Normal range of motion, supple without lymphadenopathy or JVD, no thyromegaly LUNGS: Breath sounds coarse to auscultation bilaterally and equal. No wheezes rales or rhonchi. She is unable to take a significant deep breath without pain stopping her.this is improved from yesterday HEART: Regular rate and rhythm without murmurs, rubs or gallops.S1S2 Normal ABDOMEN: Soft, nontender, normoactive bowel sounds. No guarding, no rebound. No masses appreciated. EXTREMITIES: Normal range of motion, no pitting or edema. No clubbing or cyanosis. NEUROLOGICAL: Cranial nerves II through XII grossly intact. Normal speech, normal gait. PSYCH: Normal mood, normal affect. SKIN: Warm, Dry, normal turgor, no rashes or lesions noted. - Labs CBC & Chem 7: 06/04/19 07:13 06/04/19 07:13 Labs: Abnormal Lab Results - Last 24 Hours (Table) 06/02/19 06/02/19 06/03/19 Range/Units 06:48 20:58 15:51 RBC (3.80-5.40) m/uL Hgb (11.4-16.0) gm/dL Hct (34.0-46.0) % Glucose (74-99) mg/dL POC Glucose (mg/dL) 312 H (75-99) mg/dL Calcium (8.4-10.2) mg/dL Urine Legionella Ag DETECTED H (Not detected) Mycoplasma pneumon IgG 1.28 H (<=0.90) INDEX 06/03/19 06/04/19 06/04/19 Range/Units 20:16 07:10 07:13 RBC 3.53 L (3.80-5.40) m/uL Hgb 10.9 L (11.4-16.0) gm/dL Hct 33.4 L (34.0-46.0) % Glucose (74-99) mg/dL POC Glucose (mg/dL) 258 H 254 H (75-99) mg/dL Calcium (8.4-10.2) mg/dL Urine Legionella Ag (Not detected) Mycoplasma pneumon IgG (<=0.90) INDEX 06/04/19 06/04/19 Range/Units 07:13 12:24 RBC (3.80-5.40) m/uL Hgb (11.4-16.0) gm/dL Hct (34.0-46.0) % Glucose 231 H (74-99) mg/dL POC Glucose (mg/dL) 149 H (75-99) mg/dL Calcium 8.0 L (8.4-10.2) mg/dL Urine Legionella Ag (Not detected) Mycoplasma pneumon IgG (<=0.90) INDEX Microbiology - Last 24 Hours (Table) 06/01/19 13:15 Blood Culture - Preliminary Blood No Growth after 72 hours 06/01/19 15:25 Urine Culture - Preliminary Urine,Voided Escherichia coli Assessment and Plan (1) Lung mass Current Visit: Yes Status: Acute Code(s): R91.8 - OTHER NONSPECIFIC ABNORMAL FINDING OF LUNG FIELD SNOMED Code(s): 229751756 (2) Pneumonia Current Visit: Yes Status: Acute Code(s): J18.9 - PNEUMONIA, UNSPECIFIED ORGANISM SNOMED Code(s): 158486362 (3) Tongue mass Current Visit: Yes Status: Acute Code(s): R22.0 - LOCALIZED SWELLING, MASS AND LUMP, HEAD SNOMED Code(s): 664126600 (4) Diabetes Current Visit: Yes Status: Acute Code(s): E11.9 - TYPE 2 DIABETES MELLITUS WITHOUT COMPLICATIONS SNOMED Code(s): 80203852 (5) Dementia Current Visit: Yes Status: Acute Code(s): F03.90 - UNSPECIFIED DEMENTIA WITHOUT BEHAVIORAL DISTURBANCE SNOMED Code(s): 86862627 (6) H/O cancer of uterus Current Visit: Yes Status: Acute Code(s): Z85.42 - PERSONAL HISTORY OF MALIGNANT NEOPLASM OF OTH PRT UTERUS SNOMED Code(s): 690567875 (7) Back pain Current Visit: Yes Status: Acute Code(s): M54.9 - DORSALGIA, UNSPECIFIED SNOMED Code(s): 819551441 (8) Chest pain Current Visit: Yes Status: Acute Code(s): R07.9 - CHEST PAIN, UNSPECIFIED SNOMED Code(s): 90550380 (9) Febrile illness, acute Current Visit: Yes Status: Acute Code(s): R50.9 - FEVER, UNSPECIFIED SNOMED Code(s): 232488256 (10) Urinary tract infection Current Visit: Yes Status: Acute Code(s): N39.0 - URINARY TRACT INFECTION, SITE NOT SPECIFIED SNOMED Code(s): 91983392 (11) Immunosuppressed status Current Visit: Yes Status: Acute Code(s): D89.9 - DISORDER INVOLVING THE IMMUNE MECHANISM, UNSPECIFIED SNOMED Code(s): 35904391 Plan: She'll continue on her current medications Rocephin, azithromycin. subcutaneous heparin, NovoLog scale. restart metformin and glimeperide repeat labs in a.m. she will be Reevaluated next 24 hours. Continue NovoLog scale and Accu-Cheks before meals and at bedtime. wait on ENT for Biopsy if needed reevaluate in 24 hrs
--- NOTE | 2019-06-04 15:57 | XR ---
EXAMINATION TYPE: XR chest 2V DATE OF EXAM: 06/04/2019 COMPARISON: NONE TECHNIQUE: PA and lateral views submitted. HISTORY: Left chest pain FINDINGS: There is a right-sided consolidation. Left lung clear. No overt failure or pneumothorax. Biapical ple ural thickening. Arthropathy of the shoulders. Degenerative change of the spine. Tiny pleural effusio n suspected. IMPRESSION: 1. Multifocal subsegmental consolidation the right lung may been the basis of developing pneumonia co rrelate clinically. Underlying neoplastic process not excluded. 2. Small bilateral pleural effusions.
[2019-06-04 17:14] LABS: Glucose,Whole Blood 153 mg/dL (75-99)
[2019-06-04 20:20] LABS: Glucose,Whole Blood 267 mg/dL (75-99)
[2019-06-04] MEDS: DONEPEZIL 10 MG TAB PO SCH (20:27)
[2019-06-04 21:19] VITALS: TEMP 98.2
--- NOTE | 2019-06-04 21:33 | P.PN ---
Subjective Progress Note Date: 06/04/19 63-year-old female with a history of remote cervical cancer and underwent partial hysterectomy 1980 presents to Hospital feeling ill. She developed fever chills increasing shortness of breath and a fever of 103. Because of this she was brought in the hospital there was concerns to multi lobar pneumonia. Also evidence of some possible lymphadenopathy. With concerns pneumonia and a consult was requested. The patient has had imaging studies that reveal evidence of the computed tomography scan of the chest without evidence of pulmonary embolism evidence of the patchy reticular nodular infiltrates bilaterally as well as some increased expiratory lymph nodes. Computed tomography scan of the neck was performed because of the chest and neck pain evidence of minimal cervical lymphadenopathy however there was the asymmetries the base of the tongue with concerns to mass. Oncology has been consulted. 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 She routinely lives in [place] and comes to [place] just for part of the summer to escape the heat of [place]. 06/03/2019 the patient has shown improvement since admission. Temperature has gone from 103-97.4. Readings improved however still having the pain in the right anterior chest wall. She relates that her fevers have improved. We discussed ongoing abnormal blood work. 06/04/2019 patient feeling better less SOB and more comfortable, anxious about the tongue mass Objective - Vital Signs Vital signs: Vital Signs Temp 98.3 F 06/04/19 11:16 Pulse 57 L 06/04/19 11:16 Resp 16 06/04/19 11:16 BP 149/83 06/04/19 11:16 Pulse Ox 94 L 06/04/19 11:16 Intake & Output 06/04/19 06/04/19 06/05/19 06:59 18:59 06:59 Intake Total 1520 Balance 1520 Intake: Intake, IV Titration 920 Amount Sodium Chloride 0.9% 1, 920 000 ml @ 80 mls/hr IV . [id number] [facility] Rx#:[id number] Oral 600 Other: Voiding Method Toilet Toilet # Voids 1 - Exam 63-year-old womanWho appears to be comfortable but does complain of discomfort in her chest with coughing and certain motions. Such as arising from a seated position. HEENT: Anicteric conjunctiva are pink and moist nasal mucosa grossly intact without significant lesions, there is no thrush. Neck: The neck is supple without significant lymphadenopathy or thyromegaly. Lungs: Symmetrical bilateral air entry is noted. There are expiratory scattered wheezes few crackles at the bases Heart: Regular rate and rhythm with an audible S1-S2, no S3 no S4. There is no significant murmur click or rub, PMI was nondisplaced. Abdomen: obese,Positive bowel sounds soft and nontender without palpable masses or organomegaly. There was no guarding or rebound. Extremities: The upper extremities have excellent pulses they are symmetric, no significant petechiae or telangiectasia. No splinter hemorrhages were noted. The lower extremities are free from significant edema. The peripheral pulses were 2+ and symmetric. Neuro: Awake alert oriented to person place and time. There are no acute new gross focal sensory motor deficits. - Labs CBC & Chem 7: 06/04/19 07:13 06/04/19 07:13 Labs: Abnormal Lab Results - Last 24 Hours (Table) 06/02/19 06/02/19 06/04/19 Range/Units 06:48 20:58 07:10 RBC (3.80-5.40) m/uL Hgb (11.4-16.0) gm/dL Hct (34.0-46.0) % Glucose (74-99) mg/dL POC Glucose (mg/dL) 254 H (75-99) mg/dL Calcium (8.4-10.2) mg/dL Urine Legionella Ag DETECTED H (Not detected) Mycoplasma pneumon IgG 1.28 H (<=0.90) INDEX 06/04/19 06/04/19 06/04/19 Range/Units 07:13 07:13 12:24 RBC 3.53 L (3.80-5.40) m/uL Hgb 10.9 L (11.4-16.0) gm/dL Hct 33.4 L (34.0-46.0) % Glucose 231 H (74-99) mg/dL POC Glucose (mg/dL) 149 H (75-99) mg/dL Calcium 8.0 L (8.4-10.2) mg/dL Urine Legionella Ag (Not detected) Mycoplasma pneumon IgG (<=0.90) INDEX 06/04/19 06/04/19 Range/Units 17:13 20:18 RBC (3.80-5.40) m/uL Hgb (11.4-16.0) gm/dL Hct (34.0-46.0) % Glucose (74-99) mg/dL POC Glucose (mg/dL) 153 H 267 H (75-99) mg/dL Calcium (8.4-10.2) mg/dL Urine Legionella Ag (Not detected) Mycoplasma pneumon IgG (<=0.90) INDEX Microbiology - Last 24 Hours (Table) 06/01/19 13:15 Blood Culture - Preliminary Blood No Growth after 72 hours Laboratory Results WBC 8.8 k/uL (3.8-10.6) 06/04/19 07:13 RBC 3.53 m/uL (3.80-5.40) L 06/04/19 07:13 Hgb 10.9 gm/dL (11.4-16.0) L 06/04/19 07:13 Hct 33.4 % (34.0-46.0) L 06/04/19 07:13 MCV 94.4 fL (80.0-100.0) 06/04/19 07:13 MCH 30.7 pg (25.0-35.0) 06/04/19 07:13 MCHC 32.5 g/dL (31.0-37.0) 06/04/19 07:13 RDW 13.8 % (11.5-15.5) 06/04/19 07:13 Plt Count 219 k/uL (150-450) 06/04/19 07:13 Neutrophils % 67 % 06/04/19 07:13 Lymphocytes % 24 % 06/04/19 07:13 Monocytes % 5 % 06/04/19 07:13 Eosinophils % 1 % 06/04/19 07:13 Basophils % 1 % 06/04/19 07:13 Neutrophils # 5.9 k/uL (1.3-7.7) 06/04/19 07:13 Lymphocytes # 2.1 k/uL (1.0-4.8) 06/04/19 07:13 Monocytes # 0.4 k/uL (0-1.0) 06/04/19 07:13 Eosinophils # 0.1 k/uL (0-0.7) 06/04/19 07:13 Basophils # 0.1 k/uL (0-0.2) 06/04/19 07:13 PT 11.2 sec (9.0-12.0) 06/01/19 13:15 INR 1.1 (<1.2) 06/01/19 13:15 APTT 23.7 sec (22.0-30.0) 06/01/19 13:15 Sodium 140 mmol/L (137-145) 06/04/19 07:13 Potassium 3.9 mmol/L (3.5-5.1) 06/04/19 07:13 Chloride 107 mmol/L (98-107) 06/04/19 07:13 Carbon Dioxide 25 mmol/L (22-30) 06/04/19 07:13 Anion Gap 8 mmol/L 06/04/19 07:13 BUN 16 mg/dL (7-17) 06/04/19 07:13 Creatinine 0.53 mg/dL (0.52-1.04) 06/04/19 07:13 Est GFR (CKD-EPI)AfAm >90 (>60 ml/min/1.73 sqM) 06/04/19 07:13 Est GFR (CKD-EPI)NonAf >90 (>60 ml/min/1.73 sqM) 06/04/19 07:13 Glucose 231 mg/dL (74-99) H 06/04/19 07:13 POC Glucose (mg/dL) 267 mg/dL (75-99) H 06/04/19 20:18 POC Glu [place] Turner Nanette Christensen 06/04/19 20:[address] Glu mg/dL 160 06/03/19 06:29 Hemoglobin A1c 7.2 % (4.0-6.0) H 06/03/19 06:29 Plasma Lactic Acid [place] 1.7 mmol/L (0.7-2.0) 06/01/19 13:15 Calcium 8.0 mg/dL (8.4-10.2) L 06/04/19 07:13 Magnesium 1.4 mg/dL (1.6-2.3) L 06/01/19 13:15 Total Bilirubin 2.4 mg/dL (0.2-1.3) H 06/02/19 06:48 AST 23 U/L (14-36) 06/02/19 06:48 ALT 30 U/L (9-52) 06/02/19 06:48 Alkaline Phosphatase 59 U/L (38-126) 06/02/19 06:48 Troponin I <0.012 ng/mL (0.000-0.034) 06/01/19 13:15 NT-Pro-B Natriuret Pep 190 pg/mL 06/01/19 13:46 Total Protein 7.2 g/dL (6.3-8.2) 06/02/19 06:48 Albumin 3.4 g/dL (3.5-5.0) L 06/02/19 06:48 Urine Color Yellow 06/01/19 15:25 Urine Appearance Cloudy (Clear) H 06/01/19 15:25 Urine pH 7.5 (5.0-8.0) 06/01/19 15:25 Ur Specific [place] 1.019 (1.001-1.035) 06/01/19 15:25 Urine Protein 1+ (Negative) H 06/01/19 15:25 Urine Glucose (UA) Negative (Negative) 06/01/19 15:25 Urine Ketones Negative (Negative) 06/01/19 15:25 Urine Blood Negative (Negative) 06/01/19 15:25 Urine Nitrite Negative (Negative) 06/01/19 15:25 Urine Bilirubin Negative (Negative) 06/01/19 15:25 Urine Urobilinogen <2.0 mg/dL (<2.0) 06/01/19 15:25 Ur Leukocyte Esterase Large (Negative) H 06/01/19 15:25 Urine RBC 2 /hpf (0-5) 06/01/19 15:25 Urine WBC 29 /hpf (0-5) H 06/01/19 15:25 Ur Squamous Epith Cells 23 /hpf (0-4) H 06/01/19 15:25 Amorphous Sediment Rare /hpf (None) H 06/01/19 15:25 Urine Bacteria Rare /hpf (None) H 06/01/19 15:25 Urine Mucus Rare /hpf (None) H 06/01/19 15:25 Influenza Type A RNA Not Detected (Not Detectd) 06/02/19 12:45 Influenza Type B (PCR) Not Detected (Not Detectd) 06/02/19 12:45 Urine Legionella Ag DETECTED (Not detected) H 06/02/19 20:58 Mycoplasma pneumon IgG 1.28 INDEX (<=0.90) H 06/02/19 06:48 Mycoplasma pneumon IgM 0.58 INDEX (<=0.90) 06/02/19 06:48 Microbiology 06/01/19 13:15 Blood Blood Culture - Preliminary No Growth after 72 hours 06/01/19 15:25 Urine,Voided Urine Culture - Preliminary Escherichia coli Assessment and Plan (1) Chest pain Current Visit: Yes Status: Acute Code(s): R07.9 - CHEST PAIN, UNSPECIFIED SNOMED Code(s): 67234013 (2) Febrile illness, acute Narrative/Plan: 63-year-old woman who has a remote history of cervical cancer status post partial hysterectomy in 1980 presents to hospital with increasing shortness of breath and discomfort in her chest. She is evidence of the abnormalities noted on her chest x-ray and computed tomography scan. The computed tomography scan is a bit more ominous with the numerous infiltrates and some lymphadenopathy. There is also notation of the abnormality to the base of the tongue for which further evaluation is been requested from oncology. The patient had a fever admission and evidence of pneumonic infiltration in counseling antibiotic therapy was initiated with Rocephin and azithromycin. This will continue while cultures are process. Urine Legionella and Mycoplasma titers are requested. Atypical pneumonitis is of concern. Urine culture is abnormal and likely has gram-negative bacilli being seen for which the Rocephin should be effective. Blood cultures are process. She is feeling slightly better today with current pain medications. 06/03/2019 patient is feeling somewhat better today. This really does not feel well. She'll having some right-sided chest discomfort. Fevers are improved. Still short of breath. Urine culture has gram-negative bacilli. Continue current antibiotic therapy pending further culture results. Urine Legionella antigen and mycoplasma titers are pending. Blood cultures pending. The current antibiotic therapy should adequately treat underlying urinary tract infection if verified. 06/04/2019 the lab has verified positive Legionella antigen, and she is now afebrile and feeling better. The ENT evaluation occurred and will finish as outpatient. Will finish a course of azithromycin Current Visit: Yes Status: Acute Code(s): R50.9 - FEVER, UNSPECIFIED SNOMED Code(s): 939133980 (3) Tongue mass Current Visit: Yes Status: Acute Code(s): R22.0 - LOCALIZED SWELLING, MASS AND LUMP, HEAD SNOMED Code(s): 247264796
[2019-06-04] MEDS: ONDANSETRON 4 MG/2 ML VIAL IVP PRN (22:42)
[2019-06-05 05:18] VITALS: BP 131/70; PULSE 71
[2019-06-05] MEDS: INSULIN ASPART (NovoLOG) 100 UNIT/ML VIAL SQ SCH (07:14)
[2019-06-05 07:15] LABS: Glucose,Whole Blood 129 mg/dL (75-99)
[2019-06-05] MEDS: MORPHINE SULFATE 2 MG/ML SYRINGE IVP PRN (07:16)
[2019-06-05] MEDS: HEPARIN SODIUM,PORCINE 5,000 UNIT/ML 1 ML VIAL SQ SCH (07:17)
[2019-06-05 07:52] LABS: Basophils # (A) 0.1 k/uL (0-0.2); Basophils % (A) 1 %; Eosinophils % (A) 0 %; HCT 34.7 % (34.0-46.0); HGB 10.7 gm/dL (11.4-16.0); Lymphocytes # (A) 1.9 k/uL (1.0-4.8); Lymphocytes % (A) 20 %; MCHC 30.8 g/dL (31.0-37.0); MCV 97.2 fL (80.0-100.0); Mean Platelet Volume 7.8; Monocytes # (A) 0.6 k/uL (0-1.0); Monocytes % (A) 6 %; Neutrophils # (A) 6.8 k/uL (1.3-7.7); Neutrophils % (A) 70 %; Platelet Count 247 k/uL (150-450); RBC 3.57 m/uL (3.80-5.40); RDW 14.2 % (11.5-15.5); WBC 9.7 k/uL (3.8-10.6)
[2019-06-05 08:01] LABS: African American GFR (CKD) >90 (>60 ml/min/1.73 sqM); Anion Gap 7 mmol/L; Blood Urea Nitrogen 11 mg/dL (7-17); Calcium 8.4 mg/dL (8.4-10.2); Carbon Dioxide 29 mmol/L (22-30); Chloride 106 mmol/L (98-107); Glucose 127 mg/dL (74-99); Potassium 3.9 mmol/L (3.5-5.1); Sodium 142 mmol/L (137-145)
[2019-06-05] MEDS: methylPREDNISolone 4 MG TAB TAPER PO SCH (08:09)
[2019-06-05] MEDS: AZITHROMYCIN 500 MG TAB PO SCH (08:09)
[2019-06-05] MEDS: metFORMIN 500 MG TAB PO SCH (08:09)
[2019-06-05] MEDS: CLOBETASOL PROP 0.05% CR 15GM TOPICAL SCH (08:09)
[2019-06-05] MEDS: GLIMEPIRIDE 4 MG TAB PO SCH (08:09)
[2019-06-05] MEDS: ONDANSETRON 4 MG/2 ML VIAL IVP PRN (08:10)
--- NOTE | 2019-06-05 11:07 | P.DS ---
Providers Date of admission: 06/03/19 09:50 Expected date of discharge: 06/05/19 Attending physician: Hector Shea Consults: 06/02/19 09:25 Consult Physician Routine Consulting Provider: Simeon Stephens Consult Reason/Comments: pneumonia Do you want consulting provider notified?: Yes Consult Physician Routine Consulting Provider: Sammy Ford Consult Reason/Comments: possible metastatic disease Do you want consulting provider notified?: Yes 06/02/19 15:39 Consult Physician Routine Consulting Provider: Moses Denise Consult Reason/Comments: tongue mass Do you want consulting provider notified?: Yes 06/02/19 16:38 Consult Physician Routine Consulting Provider: Min Herrera Consult Reason/Comments: possible Pneumonia Do you want consulting provider notified?: Already Contacted Primary care physician: Hector Shea - Discharge Diagnosis(es) (1) Lung mass Current Visit: Yes Status: Acute (2) Pneumonia Current Visit: Yes Status: Acute (3) Tongue mass Current Visit: Yes Status: Acute (4) Diabetes Current Visit: Yes Status: Acute (5) Dementia Current Visit: Yes Status: Acute (6) H/O cancer of uterus Current Visit: Yes Status: Acute (7) Back pain Current Visit: Yes Status: Acute (8) Chest pain Current Visit: Yes Status: Acute (9) Febrile illness, acute Current Visit: Yes Status: Acute (10) Urinary tract infection Current Visit: Yes Status: Acute (11) Immunosuppressed status Current Visit: Yes Status: Acute Hospital Course: This pleasant 63-year-old white female well-known to the practice. Palate she has a one-day history of fever, chest pain on the left side, and pain with deep inspiration. She was short of breath. She also had some nausea and vomiting. She was found to have numerous nodular infiltrates and stellate infiltrates in both lungs. These infiltrates currently significantly increased from a CT dated 02/22/2019. The patient is feeling better now. Discussed the case Dr. Stephens reviewed the films himself, but he feels that these are less likely to be malign jae would reevaluate these in 3 months. An incidental finding that was noted on CT of the neck showing possible mass at the base of the tongue on the right side. Early patient is feeling much better. Emergency room is placed her on Rocephin and azithromycin. She is on IV fluids. Her MAXIMUM TEMPERATURE is been 103.0F as of 0240. She is type II diabetic and takes metformin and glimepiride. June 03, 2019: Patient feels slightly better. Dr. Herrera had seen her continuing her Rocephin and Zithromax. She is known to be immunosuppressed due to rheumatoid arthritis and Crohn's disease with Remicade. She reports her pain is improved. She has minimal shortness of breath. No nausea or vomiting today. No diarrhea or constipation. TMAX is 100.0 deg F June 04, 2019: Patient is doing well, her chest pain is still present but improved. T-max is now 99.7. She remains on antibiotics of azithromycin and Rocephin. Her sugars have been elevated and metformin and glimepiride been restarted. She also remains on Medrol Dosepak started by hematology. She continues to be anxious about the tongue mass and the lung lesions. Clinically though she is improved. Urine culture + for ECOLI. 06/05/2019: ENT had seen the patient and need to do the procedure outpatient. Patient is much better as remain afebrile. She remains on azithromycin. Infectious disease recommended continuing this. Hematology oncology will like a repeat CT in 6 weeks. Pulmonology has cleared her to this time. Patient's requesting be discharged home. She is having some nausea and will stay for the next several hours until is improved. She will follow-up above for that CT in [place], as she stays there for the winter and is only here in [place] during the summer. She understands she still being worked up to determine the nature of her lung masses and and the tongue mass. She will follow-up with ENT outpatient for evaluation of time as possible biopsy. She'll follow-up in [address] chest for evaluation of change in size of lung masses. Patient Condition at Discharge: Fair Plan - Discharge Summary Discharge Rx Participant: Yes New Discharge Prescriptions: New Azithromycin [Zithromax] 500 mg PO DAILY #7 tab methylPREDNISolone Dose Pack [Medrol Dose Pack] See Taper PO DAILY #1 pack Acetaminophen Tab [Tylenol] 650 mg PO Q4HR PRN tab PRN Reason: Fever And/ Or Pain Azithromycin [Zithromax] 500 mg PO DAILY #7 tab Continue Glimepiride [Amaryl] 4 tab PO DAILY metFORMIN HCL 1,000 tab PO DAILY Cyanocobalamin [Vitamin B-12] 1,000 mcg IM Q42D inFLIXimab [Remicade] 900 mg IVPB Q42D Donepezil [Aricept] 10 mg PO HS Discharge Medication List Glimepiride [Amaryl] 4 tab PO DAILY 02/25/14 [History] metFORMIN HCL 1,000 tab PO DAILY 02/25/14 [History] Cyanocobalamin [Vitamin B-12] 1,000 mcg IM Q42D 03/09/16 [History] inFLIXimab [Remicade] 900 mg IVPB Q42D 04/24/17 [History] Donepezil [Aricept] 10 mg PO HS 06/26/18 [History] Azithromycin [Zithromax] 500 mg PO DAILY #7 tab 06/04/19 [Rx] Acetaminophen Tab [Tylenol] 650 mg PO Q4HR PRN tab 06/05/19 [Rx] Azithromycin [Zithromax] 500 mg PO DAILY #7 tab 06/05/19 [Rx] methylPREDNISolone Dose Pack [Medrol Dose Pack] See Taper PO DAILY #1 pack 06/05/19 [Rx] Follow up Appointment(s)/Referral(s): Hector Shea Jr, DO [Primary Care Provider] - 06/09/19 11:00 am Moses Denise MD [STAFF PHYSICIAN] - 06/11/19 12:45 pm (have patient call office to update address in order for them to send patient paper work to fill out.) Patient Instructions/Handouts: Pneumonia (DC)
[2019-06-05 11:11] LABS: Glucose,Whole Blood 180 mg/dL (75-99)
--- NOTE | 2019-06-05 16:15 | P.PN ---
Subjective Progress Note Date: 06/05/19 The patient denies any new complaints today. No fever/chills/nausea/vomiting. Respiratory status feels quite normal. She denies any current significant difficulty swallowing Objective - Vital Signs Vital signs: Vital Signs Temp 98.2 F 06/05/19 05:00 Pulse 71 06/05/19 05:00 Resp 16 06/05/19 05:00 BP 131/70 06/05/19 05:00 Pulse Ox 95 06/05/19 05:00 Intake & Output 06/04/19 06/05/19 06/05/19 18:59 06:59 18:59 Intake Total 1180 Balance 1180 Intake: Oral 1180 Other: Voiding Method Toilet Toilet # Voids 1 3 - Constitutional General appearance: Present: no acute distress - EENT Eyes: Present: EOMI ENT: Present: hearing grossly normal - Respiratory Respiratory: bilateral: CTA - Cardiovascular Rhythm: regular Heart sounds: normal: S1, S2 - Gastrointestinal General gastrointestinal: Present: normal bowel sounds, soft - Integumentary Integumentary: Present: normal - Neurologic Neurologic: Present: CNII-XII intact - Musculoskeletal Musculoskeletal: Present: strength equal bilaterally - Psychiatric Psychiatric: Present: A&O x's 3 - Labs CBC & Chem 7: 06/05/19 07:19 06/05/19 07:19 Labs: Abnormal Lab Results - Last 24 Hours (Table) 06/04/19 06/04/19 06/05/19 Range/Units 17:13 20:18 07:12 RBC (3.80-5.40) m/uL Hgb (11.4-16.0) gm/dL MCHC (31.0-37.0) g/dL Glucose (74-99) mg/dL POC Glucose (mg/dL) 153 H 267 H 129 H (75-99) mg/dL 06/05/19 06/05/19 06/05/19 Range/Units 07:19 07:19 11:08 RBC 3.57 L (3.80-5.40) m/uL Hgb 10.7 L (11.4-16.0) gm/dL MCHC 30.8 L (31.0-37.0) g/dL Glucose 127 H (74-99) mg/dL POC Glucose (mg/dL) 180 H (75-99) mg/dL Microbiology - Last 24 Hours (Table) 06/01/19 13:15 Blood Culture - Preliminary Blood No Growth after 96 hours Assessment and Plan (1) Tongue mass Narrative/Plan: The patient is fairly asymptomatic, though in retrospect there may be some occasional change in swallowing. She has been seen by ENT and outpatient follow-up and biopsy Recommended. She was advised to follow up as soon as possible on discharge. She is planning on leaving for [place], and was asked to get the procedure done before her trip. Status: Acute Code(s): R22.0 - LOCALIZED SWELLING, MASS AND LUMP, HEAD SNOMED Code(s): 895525009 (2) Lung mass Narrative/Plan: The patient's clinical presentation, with fairly acute onset of chest discomfort and shortness of breath, as well as the appearance of the opacities on the CT scan clinically make it more likely that this could be an inflammatory process rather than metastatic. Patient has been seen by pulmonary medicine and scan reviewed, morbidly with the same. The patient is currently being treated for an infectious process, with a plan for follow-up CAT scan in about 3 months. Agree with the same. The patient states that she will get her CAT scan done in [place]. She then stated that if something was abnormal she would follow-up in the spring when she comes back here! She was strongly advised against that plan. She was urged to get the CAT scan done as directed, preferably even sooner at the 6-8 week katelyn. If this was abnormal, she was urged to follow-up with a physician in [place] as soon as p ossible. She stated that she only has a channel opener outsoles there. She was asked to at least follow-up with her so that she could be directed to the appropriate physician. The patient expressed understanding Status: Acute Code(s): R91.8 - OTHER NONSPECIFIC ABNORMAL FINDING OF LUNG FIELD SNOMED Code(s): 885203565
== END 2019-06-05 12:05 | disposition home or self-care (01) | DRG 689 ==
LOC: EC 11:34 → 3NMEDONC 18:02 → OBSVTOIN 06-03 09:50
PROVIDERS: ADMIT Family Medicine; ATTEND Family Medicine
DX: N39.0 Urinary tract infection, site not specified (principal); J18.9 Pneumonia, unspecified organism; K50.90 Crohn's disease, unspecified, without complications; R91.8 Other nonspecific abnormal finding of lung field; B96.20 Unspecified Escherichia coli [E. coli] as the cause of diseases classified elsewhere; E03.9 Hypothyroidism, unspecified; E11.9 Type 2 diabetes mellitus without complications; F03.90 Unspecified dementia, unspecified severity, without behavioral disturbance, psychotic disturbance, mood disturbance, and anxiety; F42.9 Obsessive-compulsive disorder, unspecified; G47.30 Sleep apnea, unspecified; J45.20 Mild intermittent asthma, uncomplicated; K14.9 Disease of tongue, unspecified; K21.9 Gastro-esophageal reflux disease without esophagitis; M06.9 Rheumatoid arthritis, unspecified; Z80.49 Family history of malignant neoplasm of other genital organs; Z85.41 Personal history of malignant neoplasm of cervix uteri; Z85.42 Personal history of malignant neoplasm of other parts of uterus; Z90.711 Acquired absence of uterus with remaining cervical stump; T14.8XXA Other injury of unspecified body region, initial encounter; X83.8XXA Intentional self-harm by other specified means, initial encounter; Z99.89 Dependence on other enabling machines and devices; R59.1 Generalized enlarged lymph nodes; R07.89 Other chest pain; Z90.49 Acquired absence of other specified parts of digestive tract; Z79.84 Long term (current) use of oral hypoglycemic drugs; Z79.899 Other long term (current) drug therapy
CPT/HCPCS: 36415; 70491; 71046; 71275; 80048; 80053; 81001; 83036; 83605; 83735; 83880; 84484; 85025; 85610; 85730; 86738; 87040; 87077; 87086; 87186; 87449; 87502; 93005; 96361; 96365; 99285

== ENCOUNTER → 2020-02-12 | Outpatient (CLI) | payer MEDICARE ==
[~2020-02-12] MED LIST changes: +INFLIXIMAB DYYB IV NR; -INFLIXIMAB IV NR
[2020-02-12 10:42] VITALS: RESP 16; TEMP 98.1
[2020-02-12 12:04] VITALS: BP 148/73; PULSE 83
== END | disposition home or self-care (01) ==
LOC: PROCWHC3 10:15
PROVIDERS: ATTEND Internal Medicine Gastroenterology
DX: K50.90 Crohn's disease, unspecified, without complications (principal)
CPT/HCPCS: 96413; 96415; Q5103

== ENCOUNTER → 2020-03-26 | Outpatient (CLI) | payer MEDICARE ==
[2020-03-26 10:27] VITALS: TEMP 98
[2020-03-26 11:55] VITALS: RESP 19
[2020-03-26 12:39] VITALS: BP 127/74; PULSE 73
== END | disposition home or self-care (01) ==
LOC: PROCWHC3 10:14
PROVIDERS: ATTEND Internal Medicine Gastroenterology
DX: K50.90 Crohn's disease, unspecified, without complications (principal)
CPT/HCPCS: 96413; 96415; Q5103

== ENCOUNTER 2020-03-31 06:47 | Day surgery (SDC) | payer MEDICARE ==
[2020-03-31 07:23] VITALS: RESP 16; TEMP 96.4
[2020-03-31] MEDS ORDERED: LACTATED RINGERS 1,000 ML IV SCH (07:23)
[2020-03-31] MEDS ORDERED: LIDOCAINE 1% (10MG/ML) FOR IV START SQ ONE (07:30)
[2020-03-31 07:33] LABS: Glucose,Whole Blood 169 mg/dL (75-99)
[2020-03-31] MEDS ORDERED: PROPOFOL 10 MG/ML 20 ML VIAL IV ONE (07:34)
--- NOTE | 2020-03-31 07:55 | P.PCN ---
Date of Procedure: 03/31/20 Procedure(s) Performed: BRIEF HISTORY: Patient is a 64-year-old pleasant white female evaluation of chronic diarrhea for the last several years duration. She has history of Crohn's disease status post TIA resection in 1995 and presently maintained on Remicade infusions. Lately has been having severe diarrhea with bowel movements anywhere from 15-2080 for the last 10 years which is progressively getting worse. No help with Lomotil of [place]. Recently was started on dicyclomine. She has intermittent rectal bleeding also. She is hence scheduled for colonoscopy as a part of evaluation of diarrhea and rectal bleeding. PROCEDURE PERFORMED: Colonoscopy with random biopsy. PREOPERATIVE DIAGNOSIS: Chronic diarrhea and history of Crohn's disease. IV sedation per Anesthesia. PROCEDURE: After informed consent was obtained, the patient, was brought into the endoscopy unit. IV sedation was administered by Anesthesia under continuous monitoring. Digital rectal examination was normal. Initially the Olympus CF-160 flexible video colonoscope was then inserted in the rectum, gradually advanced into the right colon and ileocolonic anastomosis was visualized. The anastomosis appeared normal. Scope was advanced age 10 cm into the distal ileum that appeared entirely normal. The prep was excellent. Mucosa of the, transverse colon, descending colon, sigmoid colon, and rectum appeared normal. Random biopsies were done from the transverse colon and descending colon to rule out microscopic/collagenous colitis. Retroflexion was performed in the rectum and some scarring of the mucosa noted just proximal to the dentate line suggestive of previous Crohn's disease in this area. No active Crohn's seen. Monitor hemorrhoids were also noted. The patient tolerated the procedure well. IMPRESSION: Small internal hemorrhoids Normal-appearing colon from rectum to right colon with no evidence of active colitis or colorectal neoplasia Normal ileocolonic anastomosis as well as normal distal ileum RECOMMENDATIONS: Findings of this examination were discussed with the patient as well as her family. She was advised to follow with the biopsy results. She will continue with Bentyl 20 mg 4 times daily and she'll be seen in office in 2 weeks..
[2020-03-31 08:07] VITALS: BP 105/70; PULSE 62
== END 2020-03-31 08:42 | disposition home or self-care (01) ==
LOC: ORWHC2ENDO 06:47
PROVIDERS: ATTEND Internal Medicine Gastroenterology
DX: K52.9 Noninfective gastroenteritis and colitis, unspecified (principal); K62.5 Hemorrhage of anus and rectum; K50.90 Crohn's disease, unspecified, without complications; K64.8 Other hemorrhoids; E11.9 Type 2 diabetes mellitus without complications; I10 Essential (primary) hypertension; J45.909 Unspecified asthma, uncomplicated; G47.33 Obstructive sleep apnea (adult) (pediatric); M06.9 Rheumatoid arthritis, unspecified; K21.9 Gastro-esophageal reflux disease without esophagitis; R10.9 Unspecified abdominal pain; D64.9 Anemia, unspecified; Z98.0 Intestinal bypass and anastomosis status; Z85.41 Personal history of malignant neoplasm of cervix uteri; Z99.89 Dependence on other enabling machines and devices; Z79.899 Other long term (current) drug therapy; Z79.84 Long term (current) use of oral hypoglycemic drugs; Z79.891 Long term (current) use of opiate analgesic; Z87.01 Personal history of pneumonia (recurrent); Z90.49 Acquired absence of other specified parts of digestive tract; Z90.710 Acquired absence of both cervix and uterus; Z98.890 Other specified postprocedural states
CPT/HCPCS: 88305; 45380; J2704

== ENCOUNTER → 2020-05-07 | Outpatient (CLI) | payer MEDICARE ==
[2020-03-29 11:01] VITALS: BMI 32.9
[~2020-05-07] MED LIST changes: -INFLIXIMAB DYYB IV NR; +INFLIXIMAB DYYB IV ONE; -SODIUM CHLORIDE 0.9% IV NR; +SODIUM CHLORIDE 0.9% IV ONE
[2020-05-07 11:42] VITALS: TEMP 97.6
[2020-05-07 11:52] VITALS: RESP 18
[2020-05-07 12:16] VITALS: BP 122/70; PULSE 71
== END | disposition home or self-care (01) ==
LOC: PROCWHC3 10:25
PROVIDERS: ATTEND Internal Medicine Gastroenterology
DX: K50.90 Crohn's disease, unspecified, without complications (principal)
CPT/HCPCS: 96413; 96415; Q5103

== ENCOUNTER → 2020-06-08 | Outpatient (CLI) | payer MEDICARE ==
[2020-06-08 09:04] LABS: African American GFR (CKD) >90 (>60 ml/min/1.73 sqM); Blood Urea Nitrogen 19 mg/dL (7-17); Non-African American GFR(CKD) >90 (>60 ml/min/1.73 sqM)
--- NOTE | 2020-06-08 10:46 | CT ---
EXAMINATION TYPE: CT chest w con DATE OF EXAM: 06/08/2020 COMPARISON: PET CT 02/22/2019, CTA chest 06/01/2019 HISTORY: Other nonspecific abnormal finding lung field, history of uterine cancer CT DLP: 505.3 mGycm, Automated exposure control for dose reduction was used. CONTRAST: Performed injected with 100 mL of Isovue 300. TECHNIQUE: Axial images were obtained at 5 mm thick sections. Reconstructed images are reviewed on [employer] computer in the coronal plane. FINDINGS: Portion of the thyroid visualized is normal. Multiple bilateral lung nodules are present. These measure between 4 and 8 mm in size. Larger referen ce lesions would include a 0.6 cm nodule adjacent to the major fissure on the left. Series 4 image 26 . Elongated irregular slightly dense area within the anterior right middle lobe measuring 0.5 x 0.9 c m. Series 4 image 33. A 0.6 cm nodule within the posterior lateral right lung. Series 4 image 41. A 0 .8 cm nodule within the periphery of the left lung base. Series 4 image 50. Nodules appear to be deve loping from the 02/22/2019 PET/CT exam. No enlarged mediastinal or hilar adenopathy is evident. The ascending aorta diameter at the level o f the main pulmonary artery is 3.4 cm. The main pulmonary artery diameter at the bifurcation is 3.[address] sections are obtained through the upper abdomen. There is some mild fatty infiltration of the liver. IMPRESSIONS: 1. Interval development of multiple small nodules within the bilateral lungs. PET/CT could reevaluate these findings.
== END | disposition home or self-care (01) ==
LOC: RADCTMAIN 08:21
DX: R91.8 Other nonspecific abnormal finding of lung field (principal); R59.0 Localized enlarged lymph nodes
CPT/HCPCS: 82565; 84520; 71260; 36415; Q9967

== ENCOUNTER → 2021-01-26 | Outpatient (CLI) | payer MEDICARE ==
[~2021-01-26] MED LIST changes: +CYANOCOBALAMIN 1,000 MCG/ML 1 ML VIAL SQ NR; +INFLIXIMAB DYYB IV NR; -INFLIXIMAB DYYB IV ONE; +SODIUM CHLORIDE 0.9% IV NR; -SODIUM CHLORIDE 0.9% IV ONE
[2021-01-26 10:44] VITALS: RESP 16; TEMP 98.5
[2021-01-26 12:29] VITALS: BP 130/73; PULSE 70
== END | disposition home or self-care (01) ==
LOC: PROCWHC3 10:27
PROVIDERS: ATTEND Internal Medicine Gastroenterology
DX: Z51.11 Encounter for antineoplastic chemotherapy (principal); E11.22 Type 2 diabetes mellitus with diabetic chronic kidney disease; R94.5 Abnormal results of liver function studies; K50.90 Crohn's disease, unspecified, without complications
CPT/HCPCS: 96413; 96415; 96372; J3420; Q5103

== ENCOUNTER → 2021-02-01 | Outpatient (CLI) | payer MEDICARE ==
[2021-02-01 21:47] LABS: Basophils # (A) 0.06 X 10*3/uL (0.00-0.10); Basophils % (A) 0.6 %; Eosinophils # (A) 0.25 X 10*3/uL (0.04-0.35); Eosinophils % (A) 2.5 %; HCT 35.8 % (37.2-46.3); HGB 11.2 g/dL (12.0-15.0); Lymphocytes # (A) 2.52 X 10*3/uL (0.90-5.00); Lymphocytes % (A) 24.9 %; MCH 30.7 pg (27.0-32.0); MCHC 31.3 g/dL (32.0-37.0); MCV 98.1 fL (80.0-97.0); Mean Platelet Volume 10.8 fL (9.5-12.2); Monocytes % (A) 7.9 %; Neutrophils # (A) 6.37 X 10*3/uL (1.80-7.70); Neutrophils % (A) 62.8 %; Platelet Count 270 X 10*3/uL (140-440); RBC 3.65 X 10*6/uL (4.10-5.20); RDW 14.3 % (11.5-14.5); WBC 10.13 X 10*3/uL (4.50-10.00)
[2021-02-01 22:09] LABS: Protein, Total 7.2 g/dL (6.2-8.2)
[2021-02-01 22:11] LABS: Hepatitis B Surface Antigen Non-Reactive (Non-Reactive); Hepatitis C IgG Antibody Non-Reactive (Non-Reactive)
[2021-02-01 22:19] LABS: % Iron Saturation 10.05 (12.00-45.00); African American GFR (CKD) 103.9 (60.0-200.0); Albumin 4.2 g/dL (3.80-4.90); Albumin/Globulin Ratio 1.4 (1.60-3.17); Calcium 9.6 mg/dL (8.7-10.3); Non-African American GFR(CKD) 89.7 (60.0-200.0); Potassium 4.3 mmol/L (3.5-5.5); Total Bilirubin 0.7 mg/dL (0.3-1.2); Total Protein 7.2 g/dL (6.2-8.2)
[2021-02-01 22:27] LABS: Ferritin 44.3 ng/mL (10.0-291.0)
[2021-02-01 23:30] LABS: Hemoglobin A1C 8.1 % (4.0-6.0)
[2021-02-02 12:48] LABS: Ceruloplasmin 26.9 mg/dL (20.0-60.0)
[2021-02-02 13:42] LABS: Albumin 3.61 g/dL (3.80-4.90); Gamma Globulin 1.47 g/dL (0.70-1.50)
== END | disposition home or self-care (01) ==
LOC: LABWHC1 10:54
PROVIDERS: ATTEND Internal Medicine Gastroenterology
DX: E11.22 Type 2 diabetes mellitus with diabetic chronic kidney disease (principal); R94.5 Abnormal results of liver function studies
CPT/HCPCS: 36415; 80053; 82103; 82390; 82728; 83036; 83516; 83540; 83550; 84165; 85025; 86038; 86803; 87340

== ENCOUNTER → 2021-02-04 | Outpatient (CLI) | payer MEDICARE | END | disposition home or self-care (01) | LOC: LABWHC1 12:57 | PROVIDERS: ATTEND Internal Medicine Gastroenterology | DX: R94.5 Abnormal results of liver function studies (principal) | CPT/HCPCS: 36415; 81596 ==

== ENCOUNTER → 2021-03-10 | Outpatient (CLI) | payer MEDICARE ==
[~2021-03-10] MED LIST changes: -CYANOCOBALAMIN 1,000 MCG/ML 1 ML VIAL SQ NR
[2021-03-10 08:57] VITALS: RESP 16; TEMP 98.7
[2021-03-10 10:01] VITALS: BP 136/74; PULSE 84
== END ==
LOC: PROCWHC3 08:33
PROVIDERS: ATTEND Internal Medicine Gastroenterology
DX: K50.90 Crohn's disease, unspecified, without complications (principal)
CPT/HCPCS: 96413; 96415; Q5103

== ENCOUNTER → 2021-03-18 | Outpatient (CLI) | payer MEDICARE ==
[2021-03-18 07:57] LABS: Basophils # (A) 0.1 k/uL (0-0.2); Basophils % (A) 1 %; Eosinophils # (A) 0.3 k/uL (0-0.7); Eosinophils % (A) 3 %; HCT 39.5 % (34.0-46.0); HGB 12.3 gm/dL (11.4-16.0); Lymphocytes % (A) 22 %; MCH 29.8 pg (25.0-35.0); MCHC 31.2 g/dL (31.0-37.0); MCV 95.5 fL (80.0-100.0); Mean Platelet Volume 7.3; Monocytes # (A) 0.7 k/uL (0-1.0); Monocytes % (A) 8 %; Neutrophils # (A) 5.8 k/uL (1.3-7.7); Neutrophils % (A) 63 %; Platelet Count 238 k/uL (150-450); RBC 4.13 m/uL (3.80-5.40); RDW 14.7 % (11.5-15.5); WBC 9.2 k/uL (3.8-10.6)
[2021-03-18 08:08] LABS: ALT 52 U/L (4-34); AST 53 U/L (14-36); African American GFR (CKD) >90 (>60 ml/min/1.73 sqM); Albumin 4.3 g/dL (3.5-5.0); Alkaline Phosphatase 55 U/L (38-126); Anion Gap 9 mmol/L; Bilirubin, Delta 0.1 mg/dL (0.0-0.2); Bilirubin,Unconjugated 0.8 mg/dL (0.0-1.1); Blood Urea Nitrogen 23 mg/dL (7-17); Calcium 9.4 mg/dL (8.4-10.2); Carbon Dioxide 26 mmol/L (22-30); Chloride 104 mmol/L (98-107); Glucose 169 mg/dL (74-99); Non-African American GFR(CKD) >90 (>60 ml/min/1.73 sqM); Potassium 4.1 mmol/L (3.5-5.1); Sodium 139 mmol/L (137-145); Total Bilirubin 0.9 mg/dL (0.2-1.3); Total Protein 8.4 g/dL (6.3-8.2)
[2021-03-18 08:25] LABS: T4, Free (Free Thyroxine) 1.15 ng/dL (0.78-2.19)
--- NOTE | 2021-03-18 09:34 | US ---
EXAMINATION TYPE: US liver DATE OF EXAM: 03/18/2021 COMPARISON: NONE CLINICAL HISTORY: R94.5 Abnormal results of liver functions studies. EXAM MEASUREMENTS: Liver Length: 15.5 cm Gallbladder Wall: 0.2 cm CBD: 0.4 cm Right Kidney: 10.4 x 5.4 x 5.2 cm Pancreas: visualized portions wnl, limited by overlying midline bowel gas Liver: wnl Gallbladder: wnl Evidence for sonographic Zimmer's sign: no CBD: visualized portions wnl, limited by overlying bowel gas Right Kidney: wnl IMPRESSION: Limited examination due to bowel gas and resultant poor acoustic window. No definite sonographic abno rmality.
[2021-03-18 13:49] LABS: Chol/HDL Ratio 2.73; Cholesterol 172 mg/dL (0-200)
== END | disposition home or self-care (01) ==
LOC: RADUSWWP 06:58
PROVIDERS: ATTEND Internal Medicine Gastroenterology
DX: R94.5 Abnormal results of liver function studies (principal)
CPT/HCPCS: 76705; 80053; 80061; 82248; 84439; 84443; 85025

== ENCOUNTER → 2021-04-21 | Outpatient (CLI) | payer MEDICARE ==
[2021-04-21 11:59] VITALS: RESP 18
[2021-04-21 12:26] VITALS: BP 129/80; PULSE 77
== END ==
LOC: PROCWHC3 10:16
PROVIDERS: ATTEND Internal Medicine Gastroenterology
DX: K50.90 Crohn's disease, unspecified, without complications (principal)
CPT/HCPCS: 96413; 96415; Q5103

== ENCOUNTER → 2021-06-02 | Outpatient (CLI) | payer MEDICARE ==
[2021-06-02 10:12] VITALS: TEMP 98.2
[2021-06-02 11:05] VITALS: RESP 16
[2021-06-02 11:34] VITALS: BP 132/79; PULSE 79
== END ==
LOC: PROCWHC3 09:48
PROVIDERS: ATTEND Internal Medicine Gastroenterology
DX: K50.90 Crohn's disease, unspecified, without complications (principal)
CPT/HCPCS: 96365; 96366; Q5103

== ENCOUNTER → 2022-02-10 | Outpatient (CLI) | payer MEDICARE ==
[2022-02-10 11:31] VITALS: RESP 16; TEMP 98.2
[2022-02-10 12:27] VITALS: BP 137/83; PULSE 67
== END ==
LOC: PROCWHC3 10:43
PROVIDERS: ATTEND Internal Medicine Gastroenterology
DX: K50.90 Crohn's disease, unspecified, without complications (principal)
CPT/HCPCS: 96413; 96415; Q5103

== ENCOUNTER → 2022-03-28 | Outpatient (CLI) | payer MEDICARE ==
--- NOTE | 2022-03-28 08:03 | US ---
EXAMINATION TYPE: US liver DATE OF EXAM: 03/28/2022 COMPARISON: Ultrasound liver 03/18/2021 CLINICAL HISTORY: R94.5 ABNORMAL RESULTS OF LIVER FUNCTION. Liver function tests abnormal. Hx colon r esection. Hx Crohn's disease. EXAM MEASUREMENTS: Liver Length: 15.8 cm Gallbladder Wall: 0.24 cm CBD: 0.33 cm Right Kidney: 11.0 x 5.7 x 4.4 cm Limited due to body habitus and overlying bowel gas. Pancreas: Limited, portions seen appear wnl. Liver: Appears very heterogeneous/coarse. Increased attenuation. No suspicious lesions within this limitation. Gallbladder: Hyperechoic change of gallbladder wall seen-appearance of comet-tail artifact: 0.3 x 0. 3 x 0.2 cm. Evidence for sonographic Zimmer's sign: No CBD: Portions seen appear wnl Right Kidney: No hydronephrosis or masses seen IMPRESSION: * Limited examination without evidence of an acute process. * Increased echogenicity and heterogenous appearance of the liver consistent with hepatocellular dis ease. This is most commonly seen with hepatic steatosis. * Gallbladder adenomyomatosis.
== END | disposition home or self-care (01) ==
LOC: RADUSWWP 06:49
PROVIDERS: ATTEND Internal Medicine Gastroenterology
DX: K76.0 Fatty (change of) liver, not elsewhere classified (principal)
CPT/HCPCS: 76705

== ENCOUNTER → 2022-04-07 | Outpatient (CLI) | payer MEDICARE ==
[2022-04-07 10:21] VITALS: RESP 16; TEMP 98.7
[2022-04-07 11:43] VITALS: BP 145/76; PULSE 80
== END | disposition home or self-care (01) ==
LOC: PROCWHC3 09:45
PROVIDERS: ATTEND Internal Medicine Gastroenterology
DX: K50.90 Crohn's disease, unspecified, without complications (principal)
CPT/HCPCS: 96413; 96415; Q5103

== ENCOUNTER → 2022-04-12 | Outpatient (CLI) | payer MEDICARE ==
[2022-04-12 10:39] LABS: Anisocytosis Slight; Basophils # (A) 0.1 k/uL (0-0.2); Basophils % (A) 1 %; Eosinophils # (A) 0.2 k/uL (0-0.7); Eosinophils % (A) 1 %; HCT 36.1 % (34.0-46.0); HGB 11.5 gm/dL (11.4-16.0); Lymphocytes # (A) 2.4 k/uL (1.0-4.8); Lymphocytes % (A) 20 %; MCH 29.8 pg (25.0-35.0); MCV 93.1 fL (80.0-100.0); Mean Platelet Volume 8.9; Monocytes # (A) 0.7 k/uL (0-1.0); Monocytes % (A) 6 %; Neutrophils # (A) 8.6 k/uL (1.3-7.7); Neutrophils % (A) 71 %; Platelet Count 247 k/uL (150-450); RBC 3.88 m/uL (3.80-5.40); RDW 16.5 % (11.5-15.5); WBC 12.1 k/uL (3.8-10.6)
[2022-04-12 16:27] LABS: C Reactive Protein 0.4 mg/dL (0.00-0.80)
[2022-04-12 16:35] LABS: African American GFR (CKD) 87.8 (60.0-200.0); Albumin 3.8 g/dL (3.8-4.9); Albumin/Globulin Ratio 0.93 (1.60-3.17); Anion Gap 14.6 mmol/L (10.00-18.00); BUN/Creat Ratio 18.38 Ratio (12.00-20.00); Blood Urea Nitrogen 14.7 mg/dL (9.0-27.0); Calcium 9.3 mg/dL (8.7-10.3); Carbon Dioxide 19.4 mmol/L (20.0-27.5); Globulin 4.1 g/dL (1.6-3.3); Non-African American GFR(CKD) 75.8 (60.0-200.0); Potassium 4.3 mmol/L (3.5-5.5); Total Bilirubin 0.8 mg/dL (0.30-1.20); Total Protein 7.9 g/dL (6.2-8.2)
== END | disposition home or self-care (01) ==
LOC: LABWHC1 09:29
PROVIDERS: ATTEND Internal Medicine Gastroenterology
DX: K50.90 Crohn's disease, unspecified, without complications (principal); R94.5 Abnormal results of liver function studies
CPT/HCPCS: 36415; 80053; 85025; 86140

== ENCOUNTER → 2022-04-17 | Outpatient (CLI) | payer MEDICARE ==
[2022-04-17 19:43] LABS: Hepatitis B Surface Antigen Nonreactive (Nonreactive)
== END | disposition home or self-care (01) ==
LOC: LABWHC1 13:25
PROVIDERS: ATTEND Internal Medicine Gastroenterology
DX: K50.90 Crohn's disease, unspecified, without complications (principal); R94.5 Abnormal results of liver function studies
CPT/HCPCS: 36415; 86480; 86704; 87340

== ENCOUNTER → 2023-03-19 | Outpatient (CLI) | payer MEDICARE ==
[~2023-03-19] MED LIST changes: -INFLIXIMAB DYYB IV NR; +INFLIXIMAB IV NR
[2023-03-19 09:36] VITALS: TEMP 98
[2023-03-19 09:58] LABS: HGB 12.1 gm/dL (11.4-16.0); Hypochromasia Slight; MCH 31.1 pg (25.0-35.0); MCHC 31.1 g/dL (31.0-37.0); Mean Platelet Volume 9.1; Platelet Count 231 k/uL (150-450); RDW 14.2 % (11.5-15.5)
[2023-03-19 10:26] VITALS: RESP 16
[2023-03-19 11:15] VITALS: BP 108/70; PULSE 76
[2023-03-19 12:28] LABS: ALT 24 U/L (4-34); AST 30 U/L (14-36); African American GFR (CKD) >90 (>60 ml/min/1.73 sqM); Albumin 3.5 g/dL (3.5-5.0); Alkaline Phosphatase 56 U/L (38-126); Anion Gap 9 mmol/L; Blood Urea Nitrogen 18 mg/dL (7-17); Calcium 8.7 mg/dL (8.4-10.2); Carbon Dioxide 24 mmol/L (22-30); Chloride 102 mmol/L (98-107); Glucose 218 mg/dL (74-99); Non-African American GFR(CKD) >90 (>60 ml/min/1.73 sqM); Potassium 4.3 mmol/L (3.5-5.1); Sodium 135 mmol/L (137-145); Total Protein 7.3 g/dL (6.3-8.2)
== END ==
LOC: PROCWHC3 09:11
DX: K50.90 Crohn's disease, unspecified, without complications (principal)
CPT/HCPCS: 80053; 85027; 96413; 96415; J1745; 36415

== ENCOUNTER → 2023-04-18 | Outpatient (CLI) | payer MEDICARE ==
[2023-04-19 02:09] LABS: Basophils % (A) 1.1 %; Eosinophils # (A) 0.23 X 10*3/uL (0.04-0.35); Eosinophils % (A) 2.4 %; HCT 38.2 % (37.2-46.3); HGB 12.1 d/dL (12.0-15.0); Lymphocytes # (A) 2.17 X 10*3/uL (0.90-5.00); MCH 31.3 pg (27.0-32.0); MCHC 31.7 d/dL (32.0-37.0); MCV 98.7 FL (80.0-97.0); Mean Platelet Volume 11.9 FL (9.5-12.2); Monocytes # (A) 0.75 X 10*3/uL (0.20-1.00); NRBC Per 100 WBC 0 X 10*3/uL (0.00-0.01); Neutrophils # (A) 6.09 X 10*3/uL (1.80-7.70); Neutrophils % (A) 64.5 %; Platelet Count 243 X 10*3/uL (140-440); RBC 3.87 X 10*6/uL (4.10-5.20); RDW 13.9 % (11.5-14.5); WBC 9.43 X 10*3/uL (4.50-10.00)
[2023-04-19 02:50] LABS: ALT 19 U/L (8-44); AST 23 U/L (13-35); Albumin 4.4 d/dL (3.8-4.9); Albumin/Globulin Ratio 1.16 Ratio (1.60-3.17); Alkaline Phosphatase 70 U/L (41-126); BUN/Creat Ratio 18.25 Ratio (12.00-20.00); Blood Urea Nitrogen 14.6 mg/dL (9.0-27.0); Calcium 9.7 mg/dL (8.7-10.3); Carbon Dioxide 25.3 mmol/L (21.6-31.8); Chloride 103 mmol/L (96-109); Globulin 3.8 d/dL (1.6-3.3); Glucose 96 mg/dL (70-110); Potassium 4.4 mmol/L (3.5-5.5); Sodium 141 mmol/L (135-145); Total Bilirubin 1.2 mg/dL (0.3-1.2); Total Protein 8.2 d/dL (6.2-8.2)
[2023-04-19 02:52] LABS: Prealbumin 20.7 mg/dL (18.0-42.0)
== END | disposition home or self-care (01) ==
LOC: LABWHC1 11:38
PROVIDERS: ATTEND Podiatrist
DX: E11.622 Type 2 diabetes mellitus with other skin ulcer (principal); L98.499 Non-pressure chronic ulcer of skin of other sites with unspecified severity
CPT/HCPCS: 36415; 80053; 83036; 84134; 85025

== ENCOUNTER → 2023-05-14 | Outpatient (CLI) | payer MEDICARE ==
[2023-05-14 08:21] LABS: African American GFR (CKD) >90 (>60 ml/min/1.73 sqM); Blood Urea Nitrogen 22 mg/dL (7-17); Non-African American GFR(CKD) >90 (>60 ml/min/1.73 sqM)
--- NOTE | 2023-05-14 09:04 | CT ---
EXAMINATION TYPE: CT chest wo/w con CT DLP: 1168.80 mGycm, Automated exposure control for dose reduction was used. DATE OF EXAM: 05/14/2023 8:50 AM COMPARISON: CT chest 06/08/2020 CLINICAL INDICATION:Female, 67 years old with history of R05.9 COUGH UNSPECIFIED, Z85.118 H/O LUNG CA NCER; PHH, Cough, h/o lung ca. TECHNIQUE: Multiple axial images were obtained through the chest before and after the uneventful admi nistration of 100 cc of Isovue-300 intravenously . Coronal and sagittal reformats reviewed. FINDINGS: LUNGS/ PLEURA: No pleural effusion, pneumothorax, focal consolidation. Stable scattered pulmonary nod ules including: Stable right lower lobe 7 mm pulmonary nodule (series 8, image 31). Stable 5 mm nodul e along the left major fissure favored represent an intrafissural lymph node (series 8, image 16). St able left lower lobe 7 mm pulmonary nodule (series 8, image 39). Stable left lower lobe 4 mm pulmonar y nodule (series 8, image 46). Stable left lower lobe pulmonary nodule measuring 4 mm (series 8, imag e 44). Stable right midlung 6 mm pulmonary nodule (series 8, image 30). AIRWAY: Patent and unremarkable.. HEART: Size within normal limits. No pericardial effusion. Mild coronary arterial calcifications. MEDIASTINUM: No evidence of adenopathy. VASCULATURE: No aortic aneurysm. Four-vessel aortic arch. MUSCULOSKELETAL: Mild disc degeneration changes are present throughout the thoracolumbar spine. No ac malik osseous abnormality. SOFT TISSUES/LYMPH NODES: Bilateral breast prosthesis. LOWER NECK: No significant findings. UPPER ABDOMEN: Diverticulum involving the second portion the duodenum. IMPRESSION: Stable scattered pulmonary nodules measuring up to 7 mm. No new or enlarging pulmonary nodules. Likel y benign due to stability from 2019.
== END | disposition home or self-care (01) ==
LOC: RADCTMAIN 07:11
PROVIDERS: ATTEND Family Medicine
DX: R91.8 Other nonspecific abnormal finding of lung field (principal); E11.29 Type 2 diabetes mellitus with other diabetic kidney complication; R05.9 Cough, unspecified; Z85.118 Personal history of other malignant neoplasm of bronchus and lung
CPT/HCPCS: 82565; 84520; 71270; 36415; Q9967

== ENCOUNTER → 2024-02-04 | Outpatient (CLI) | payer MEDICARE ==
[2024-02-04] MEDS: SODIUM CHLORIDE 0.9% 500 ML 500 ML in EMPTY BAG 1 BAG IV PRN (08:09)
[2024-02-04 08:33] VITALS: RESP 16; TEMP 98.3
[2024-02-04] MEDS: INFLIXIMAB IV NR (08:37)
[2024-02-04] MEDS: SODIUM CHLORIDE 0.9% IV NR (08:37)
[2024-02-04 13:22] VITALS: BP 126/79; PULSE 75
== END ==
LOC: PROCWHC3 07:56
PROVIDERS: ATTEND Internal Medicine Rheumatology
DX: K50.90 Crohn's disease, unspecified, without complications (principal)
CPT/HCPCS: 96413; 96415; J1745

== ENCOUNTER → 2024-03-17 | Outpatient (CLI) | payer MEDICARE ==
[2024-03-17 15:45] LABS: ALT 14 U/L (8-44); AST 21 U/L (13-35); Albumin 4.2 g/dL (3.8-4.9); Albumin/Globulin Ratio 1.31 Ratio (1.60-3.17); Alkaline Phosphatase 67 U/L (41-126); BUN/Creat Ratio 22.86 Ratio (12.00-20.00); C Reactive Protein <0.30 mg/dL (0.00-0.80); Carbon Dioxide 21.5 mmol/L (21.6-31.8); Chloride 105 mmol/L (96-109); Globulin 3.2 g/dL (1.6-3.3); Glucose 142 mg/dL (70-110); Potassium 4.3 mmol/L (3.5-5.5); Sodium 140 mmol/L (135-145); Total Bilirubin 1.1 mg/dL (0.3-1.2); Total Protein 7.4 g/dL (6.2-8.2)
[2024-03-17 17:05] LABS: HCT 37.1 % (37.2-46.3); HGB 11.8 g/dL (12.0-15.0); MCH 31.4 pg (27.0-32.0); MCHC 31.8 g/dL (32.0-37.0); MCV 98.7 FL (80.0-97.0); Mean Platelet Volume 12.1 FL (9.5-12.2); NRBC Per 100 WBC 0 X 10*3/uL (0.00-0.01); Platelet Count 221 X 10*3/uL (140-440); RBC 3.76 X 10*6/uL (4.10-5.20); RDW 15.2 % (11.5-14.5); WBC 6.82 X 10*3/uL (4.50-10.00)
[2024-03-17 18:03] LABS: Erythrocyte Sedimentation Rate 41 mm/Hr (0-30)
== END | disposition home or self-care (01) ==
LOC: LABWHC1 07:58
PROVIDERS: ATTEND Internal Medicine Rheumatology
DX: K50.90 Crohn's disease, unspecified, without complications (principal)
CPT/HCPCS: 36415; 80053; 85027; 85652; 86140

== ENCOUNTER → 2024-03-31 | Outpatient (CLI) | payer MEDICARE ==
[2024-03-31 11:11] VITALS: RESP 15; TEMP 97.9
[2024-03-31] MEDS: SODIUM CHLORIDE 0.9% 500 ML 500 ML in EMPTY BAG 1 BAG IV PRN (11:18)
[2024-03-31] MEDS: SODIUM CHLORIDE 0.9% IV NR (11:27)
[2024-03-31] MEDS: INFLIXIMAB IV NR (11:27)
[2024-03-31 12:31] VITALS: BP 115/64; PULSE 76
== END ==
LOC: PROCWHC3 10:48
PROVIDERS: ATTEND Internal Medicine Rheumatology
DX: K50.90 Crohn's disease, unspecified, without complications (principal)
CPT/HCPCS: 96413; 96415; J1745

== ENCOUNTER → 2024-05-26 | Outpatient (CLI) | payer MEDICARE ==
[2024-05-26 11:34] VITALS: RESP 16; TEMP 97.7
[2024-05-26] MEDS: SODIUM CHLORIDE 0.9% 500 ML 500 ML in EMPTY BAG 1 BAG IV PRN (11:34)
[2024-05-26] MEDS: SODIUM CHLORIDE 0.9% IV NR (11:35)
[2024-05-26] MEDS: INFLIXIMAB IV NR (11:35)
[2024-05-26 12:49] VITALS: BP 106/68; PULSE 72
== END ==
LOC: PROCWHC3 10:48
PROVIDERS: ATTEND Internal Medicine Rheumatology
DX: K50.90 Crohn's disease, unspecified, without complications (principal)
CPT/HCPCS: 96413; 96415; J1745

== ENCOUNTER → 2025-03-09 | Outpatient (CLI) | payer MEDICARE ==
[~2025-03-09] MED LIST changes: -INFLIXIMAB IV NR; +SODIUM CHLORIDE 0.9% 250 ML in EMPTY BAG 1 BAG IV PRN; -SODIUM CHLORIDE 0.9% 500 ML 500 ML in EMPTY BAG 1 BAG IV PRN; -SODIUM CHLORIDE 0.9% IV NR
[2025-03-09 10:46] VITALS: TEMP 97.4
[2025-03-09] MEDS: SODIUM CHLORIDE 0.9% 500 ML 500 ML in EMPTY BAG 1 BAG IV PRN (10:58)
[2025-03-09] MEDS: SODIUM CHLORIDE 0.9% IV NR (11:22)
[2025-03-09] MEDS: INFLIXIMAB IV NR (11:22)
[2025-03-09 11:41] VITALS: RESP 16
[2025-03-09 12:23] VITALS: BP 125/86; PULSE 66
== END ==
LOC: PROCWHC3 10:34
PROVIDERS: ATTEND Internal Medicine Rheumatology
DX: K50.90 Crohn's disease, unspecified, without complications (principal)
CPT/HCPCS: 96413; 96415; J1745